=== PATIENT | female | born 1945 | race Caucasian/White ===

== ENCOUNTER 2019-04-03 13:35 | Day surgery (SDC) | payer MEDICARE, BC ==
[2019-04-03] MEDS ORDERED: Acetaminophen 500 MG TAB PO PRN (13:52)
[2019-04-03] MEDS ORDERED: diphenhydrAMINE 25 MG CAP PO PRN (13:53)
[2019-04-04 06:30] LABS: #Basophils 0.1 thou/uL (0.0-0.2); #Eosinphils 0.1 thou/uL (0.0-0.7); #Monocytes 0.6 thou/uL (0.11-0.59); #Neutrophils 3.4 thou/uL (1.40-6.50); %Basophils 1.3 % (0.0-1.0); %Eosinophils 1.5 % (0.0-10.0); %Lymphocytes 19.1 % (21.0-51.0); %Monocytes 11.3 % (0.0-10.0); %Neutrophils 66.7 % (42.0-75.0); Anisocytosis SLIGHT = 6-15 cells (100X) (0-5/hpf); Hemoglobin 8.7 g/dL (12.0-16.0); MDiff Complete? YES; Macrocytosis SLIGHT = 6-15 cells (100X) (0-5/hpf); Mean Corpuscular HGB CONC 32.8 g/dL (32.0-36.0); Mean Corpuscular Hemoglobin 32.3 pg (27.0-31.0); Mean Corpuscular Volume 98.2 fL (78.0-98.0); Mean Platelet Volume 10.1 fL (7.4-10.4); Platelet Count 92 thou/uL (130-400); Platelet Morphology Comment Appears Decreased; Polychromasia SLIGHT = 2-3 cells (100X) (0-2/hpf); RBC Distribution Width 20.5 % (11.5-14.5); Red Blood Cell (RBC) Count 2.69 mill/uL (4.20-5.40); White Blood Cell (WBC) Count 5.1 thou/uL (4.8-10.8)
[2019-04-04] MEDS ORDERED: Furosemide 40 MG/4 ML VIAL SLOW IVP SCH (07:00)
[2019-04-04] MEDS ORDERED: Sodium Chloride 0.9% 10 ML ONE (07:47)
--- NOTE | 2019-04-04 08:58 | PDOC.MOPN ---
Interval History: Feels better, SOB improved with transfusion and lasix - Vital Signs Vital Signs: Vital Signs (12 hours) Temp Pulse Pulse Resp BP BP Pulse Ox 04/04/19 08:00 97.7 F 90 20 124/60 98 04/04/19 05:45 80 L 04/04/19 04:50 97.3 F L 76 16 129/60 98 04/04/19 01:58 97.7 F 73 16 113/55 L 98 04/04/19 01:38 97.9 F 83 16 108/57 L 98 04/04/19 00:25 97.8 F 83 16 110/52 L 97 04/03/19 21:17 98.3 F 89 18 111/55 L 97 - Physical Exam General: Alert, Oriented x3, No acute distress HEENT: Atraumatic, PERRLA, EOMI, Mucous membr. moist/pink Lungs: Other (crackles RLL) Cardiovascular: Regular rate, Normal S1, Normal S2, No murmurs, Gallops, Rubs Abdomen: Normal bowel sounds, Soft, No tenderness, No hepatospenomegaly, No masses Extremities: No clubbing, No cyanosis, No edema, Normal pulses, No tenderness/ swelling Skin: No rashes, No breakdown, No significant lesion Neurological: Normal gait, Normal speech, Strength at 5/5 X4 ext, Normal tone, Sensation intact, Cranial nerves 3-12 NL, Reflexes 2+ Psych/Mental Status: Mental status NL, Mood NL - Labs Result Diagrams: 04/04/19 05:43 Lab results: Laboratory Results - last 24 hr 04/04/19 05:43: WBC 5.1, RBC 2.69 L, Hgb 8.7 L, Hct 26.4 L, MCV 98.2 H, MCH 32.3 H, MCHC 32.8, RDW 20.5 H, Plt Count 92 L, MPV 10.1, Neutrophils % 66.7, Neutrophils % (Manual) Not Reportable, Lymphocytes % 19.1 L, Monocytes % 11.3 H , Eosinophils % 1.5, Basophils % 1.3 H, Neutrophils # 3.4, Lymphocytes # 1.0 L, Monocytes # 0.6 H, Eosinophils # 0.1, Basophils # 0.1, Plt Morphology Comment Appears Decreased L, Polychromasia SLIGHT = 2-3 cells, Anisocytosis SLIGHT = 6- 15 cells, Macrocytosis SLIGHT = 6-15 cells 04/03/19 11:33: Blood Type O POSITIVE, Antibody Screen POSITIVE H, Antibody Identification ANTI-c, Crossmatch See Detail Status: lab reviewed by me A/P - Problem (1) Hypoxia Current Visit: Yes Code(s): R09.02 - HYPOXEMIA Status: Acute (2) H/O liver cancer Current Visit: No Code(s): Z85.05 - PERSONAL HISTORY OF MALIGNANT NEOPLASM OF LIVER Status: Chronic - Plan Plan: lasix 40mg IV given crackles noted at RLL otherwise, she states she feels good plan to recheck room air o2 sat in 30-60 minutes and home if > 88%
[2019-04-04 11:47] VITALS: BP 117/57; TEMP 99.1
== END 2019-04-04 12:30 | disposition home or self-care (01) ==
LOC: ONC/OP 13:35 → 3SE 13:45 → ONC/OP 04-04 12:30
PROVIDERS: ATTEND Internal Medicine Hematology & Oncology
PROC: 30233N1 Transfusion of Nonautologous Red Blood Cells into Peripheral Vein, Percutaneous Approach (ICD-10-PCS; principal; 2019-04-03)
DX: D64.9 Anemia, unspecified (principal); D69.6 Thrombocytopenia, unspecified; Z88.0 Allergy status to penicillin
CPT/HCPCS: 36415; 36430; 85025; 86850; 86870; 86900; 86901; 86922; J1940; P9016; Q0163

== ENCOUNTER 2019-04-12 13:48 | Inpatient (IN) | payer MEDICARE, BC ==
[2019-04-12 14:42] LABS: Hemoglobin 4.6 g/dL (12.0-16.0); Mean Corpuscular HGB CONC 30.4 g/dL (32.0-36.0); Mean Corpuscular Hemoglobin 33.1 pg (27.0-31.0); Mean Platelet Volume 11.6 fL (7.4-10.4); Platelet Count 64 thou/uL (130-400); RBC Distribution Width 22.7 % (11.5-14.5); Red Blood Cell (RBC) Count 1.39 mill/uL (4.20-5.40)
[2019-04-12 15:03] LABS: ALT (SGPT) 48 U/L (8-55); AST (SGOT) 55 U/L (5-34); Albumin 3.1 g/dL (3.4-4.8); Alkaline Phosphatase 79 U/L (40-110); Anion Gap 17 mmol/L (10-20); BUN (Urea Nitrogen) 99 mg/dL (9.8-20.1); Bilirubin, Total 0.8 mg/dL (0.2-1.2); Calc. Creatinine Clearance 0 mL/min (70-130); Calcium 8.5 mg/dL (7.8-10.44); Carbon Dioxide 26 mmol/L (23-31); Chloride 96 mmol/L (98-107); Estimated GFR-MDRD 17; Globulin 1.7 g/dL (2.4-3.5); Glucose 220 mg/dL (83-110); Potassium 4.6 mmol/L (3.5-5.1); Protein, Total 4.8 g/dL (6.0-8.3); Sodium 134 mmol/L (136-145)
[2019-04-12 15:09] LABS: Anisocytosis MODERATE=16-30 cells (100X) (0-5/hpf); Band 5 % (5-11); Hypochromia SLIGHT = 6-15 cells (100X) (0-5/hpf); Lymphocytes 4 % (21-51); MDiff Complete? YES; Macrocytosis SLIGHT = 6-15 cells (100X) (0-5/hpf); Monocytes 8 % (0-10); Neutrophil 83 % (42-75); Nucleated RBC 2 % (0); Platelet Clumps SLIGHT; Platelet Morphology Comment PLT clumps seen-LOW; Poikilocytosis SLIGHT = 6-15 cells (100X) (0-5/hpf); Polychromasia MODERATE = 3-4 cells (100X) (0-2/hpf); Schistocytes SLIGHT = 2-5 cells (100X) (0-1/hpf); Stomatocytes SLIGHT = 2-5 cells (100X) (0-1/hpf); Target Cells SLIGHT = 2-5 cells (100X) (0-1/hpf); Tear Drops SLIGHT = 2-5 cells (100X) (0-1/hpf); White Blood Cell (WBC) Count 8.1 thou/uL (4.8-10.8)
[2019-04-12 15:23] LABS: CKMB 0.7 ng/mL (0-6.6)
[2019-04-12] MEDS ORDERED: Acetaminophen 325 MG TAB PO PRN (16:32)
[2019-04-12] MEDS ORDERED: Senokot S 8.6-50 MG TAB PO PRN (16:32)
[2019-04-12] MEDS ORDERED: Ondansetron PF 4 MG/2 ML Vial IVP PRN (16:32)
[2019-04-12 18:03] LABS: Troponin I 0.045 ng/mL (< 0.028)
[2019-04-12] MEDS ORDERED: Pantoprazole 40 MG VIAL IVP SCH (20:00)
[2019-04-12] MEDS ORDERED: Octreotide Acetate 50 MCG/ML AMP SLOW IVP SCH (20:00)
--- NOTE | 2019-04-12 20:28 | CON ---
DATE OF CONSULTATION: 04/12/2019 CHIEF COMPLAINT: Fatigue. HISTORY OF PRESENT ILLNESS: Ms. Mejía is a 73-year-old woman with hepatocellular carcinoma, developed progressive fatigue over the last few weeks , and weakness. She has been on lenvatinib as chemotherapy for her hepatocellular carcinoma. She has had progressive anemia and this was thought to be due to the lenvatinib, which was ultimately stopped a week and half ago. Her hemoglobin, however, has continued to trend down such that when it was rechecked today, she was found to have a hemoglobin of 4.6, and so she was transferred to the emergency room and given blood transfusion. She has had no abdominal pain with this. She did have some nausea a couple of days ago and threw up some pills, but has had no hematemesis or coffee-grounds emesis. She has a bowel movement daily without constipation or diarrhea, but does take iron and has dark brown stools with that. She has had no prior upper endoscopy or history of GI bleed. She had a colonoscopy in 2012 in [place], which was normal per her recollection. She has been treated for hepatocellular carcinoma in the past with radiation and then chemotherapy. This was thought to be in remission. She has been on Xarelto. She had rheumatic fever as a child with a heart surgery in 1955. She had a mitral valve replacement with porcine valve in 2008. She then had a second mitral valve surgery in 2016, with a bovine valve. She had an ablation for atrial flutter around 6 months ago. She has a pacemaker. Her last dose of Xarelto was the night before last. PAST MEDICAL HISTORY: 1. Cirrhosis of the liver. She does not know the etiology, possibly fatty liver disease. 2. Hepatocellular carcinoma. 3. Atrial flutter and mitral valve disease and history of rheumatic fever as a child. 4. Hyperlipidemia. 5. Gout and hypertension. PAST SURGICAL HISTORY: Mitral valve replacement x2 as stated above, pacemaker placement, complete hysterectomy, colonoscopy in 2012. She has had radiation for scar tissue lower left breast, which was done again back in the 1950s and that was related to her original heart surgery then. FAMILY HISTORY: Negative for GI malignancies. SOCIAL HISTORY: She quit smoking in 1990. She has an occasional drink of alcohol. ALLERGIES: PENICILLIN. MEDICATIONS: Prior to admission: 1. Allopurinol. 2. Aspirin. 3. Diltiazem. 4. Ferrous sulfate three times daily. 5. Magnesium oxide. 6. Metoprolol. 7. Simvastatin. 8. Vitamin B12. 9. Vitamin D3. 10. Xarelto 20 mg daily. She believes the last dose was the night before last. REVIEW OF SYSTEMS: Negative x10 systems reviewed, except as stated in the history of present illness. PHYSICAL EXAMINATION: VITAL SIGNS: Temperature 99.1, pulse 103, blood pressure 117/57. GENERAL: She is pale, in no acute distress. Alert and oriented x3. HEENT: Eyes have no scleral icterus. Oropharynx is clear without lesions. No cervical or supraclavicular lymphadenopathy. LUNGS: Clear to auscultation bilaterally. HEART: Regular rate and rhythm without murmur. ABDOMEN: Soft, nontender, and nondistended. Bowel sounds are present. EXTREMITIES: 1+ pitting lower extremity edema. Cranial nerves are grossly intact. LABORATORY DATA: White blood cell count 8.1, hemoglobin 4.6, platelets 64,000. Creatinine 2.75 with BUN of 99, bilirubin 0.8, AST 55, ALT 48, alkaline phosphatase 79, albumin 3.1. IMPRESSION: 1. Severe anemia. Most likely some degree of acute gastrointestinal blood loss on chronic anticoagulation. She does have dark brown stools on rectal exam and has been on iron supplementation. 2. Valvular heart disease and history of atrial flutter on chronic anticoagulation with Xarelto. Last dose of Xarelto was night before last. She does have acute renal failure and could have some degree of toxicity with Xarelto at this time. Will check coags. 3. Cirrhosis of the liver. 4. Acute renal failure. 5. Hepatocellular carcinoma RECOMMENDATIONS: 1. Transfusion. 2. Proton pump inhibitor IV. 3. Transfusion as necessary. 4. We will plan for upper endoscopy, tentatively for tomorrow. 5. Will start octreotide and cover with abx for SBP prophylaxis. Job ID: [id number] [facility] CENTERFaith
[2019-04-12 20:32] LABS: Hemoglobin 6.1 g/dL (12.0-16.0)
[2019-04-12 20:38] LABS: INR-International Normal Ratio 1.1; PTT 22.4 SEC (22.9-36.1); Prothrombin Time 14.4 SEC (12.0-14.7)
[2019-04-12 20:59] LABS: Troponin I 0.084 ng/mL (< 0.028)
[2019-04-12] MEDS: Octreotide Acetate 1,250 MCG in Sodium Chloride 0.9% 250 ML 250 ML IVPB SCH (21:06)
[2019-04-12] MEDS: Pantoprazole 40 MG VIAL IVP SCH (21:07)
[2019-04-12] MEDS: Atorvastatin Calcium 10 MG TAB PO SCH (21:09)
[2019-04-13 03:58] LABS: INR-International Normal Ratio 1.1; Prothrombin Time 14.1 SEC (12.0-14.7)
[2019-04-13 04:13] LABS: #Lymphocytes 0.5 thou/uL (1.20-3.40); #Monocytes 0.9 thou/uL (0.11-0.59); %Basophils 0.3 % (0.0-1.0); %Eosinophils 0.5 % (0.0-10.0); %Lymphocytes 6.2 % (21.0-51.0); %Neutrophils 80.9 % (42.0-75.0); Hemoglobin 5.9 g/dL (12.0-16.0); Mean Corpuscular HGB CONC 32.3 g/dL (32.0-36.0); Mean Platelet Volume 9.8 fL (7.4-10.4); Platelet Count 137 thou/uL (130-400); Red Blood Cell (RBC) Count 1.74 mill/uL (4.20-5.40); White Blood Cell (WBC) Count 7.4 thou/uL (4.8-10.8)
[2019-04-13 04:15] LABS: Anion Gap 13 mmol/L (10-20); BUN (Urea Nitrogen) 88 mg/dL (9.8-20.1); Calc. Creatinine Clearance 39 mL/min (70-130); Calcium 8.1 mg/dL (7.8-10.44); Carbon Dioxide 25 mmol/L (23-31); Chloride 99 mmol/L (98-107); Estimated GFR-MDRD 21; Glucose 183 mg/dL (83-110); Potassium 4.3 mmol/L (3.5-5.1); Sodium 133 mmol/L (136-145)
[2019-04-13 04:20] LABS: PTT 22.3 SEC (22.9-36.1)
[2019-04-13] MEDS: Pantoprazole 40 MG VIAL IVP SCH ×2 (08:29→20:28)
[2019-04-13] MEDS: Furosemide 20 MG TAB PO SCH (08:29)
--- NOTE | 2019-04-13 08:40 | HP ---
CHIEF COMPLAINT: Shortness of breath and dizziness secondary to severe anemia. HISTORY OF PRESENT ILLNESS: A 73-year-old female with a history of hepatocellular carcinoma on lenvatinib and recent hospitalization for pacemaker placement preceded by atrial flutter and mitral valve replacement x2, pacer placed on March 08, 2019, on discharge with aspirin and Xarelto, presenting with hemoglobin level of 4.6. She [facility] and noted to have abnormal hemoglobin level, sent to the ER. Repeat evaluation showed hemoglobin of 4.7. Her platelets were 64,000. The patient did not have any obvious bleed. She does take iron supplement. No hematuria or hematochezia. Her stool is dark. She presented only with shortness of breath and dizziness without joey bleed. She has hepatocellular carcinoma, diagnosed a year and a half ago and undergone local radiation. In September 2018, she also followed at [facility] in [place]. Currently, she is following with Dr. Ewing at [facility] Clinic. Since January 27, she is on lenvatinib. This patient also has acute kidney injury with a creatinine of 2.75 and abnormal troponin of 0.07 and 0.045, as well as blood glucose level at 220. REVIEW OF SYSTEMS: Pertinence of this in the history of present illness. She denies having any fever, night sweats, or chills. No chest pain, orthopnea, PND , or lower extremity edema. She did not notice any headache, blurriness, or blood in the urine or stool. ALLERGIES: SHE IS ALLERGIC TO PENICILLIN. PAST MEDICAL HISTORY: Hepatocellular cancer diagnosed a year and a half ago. I see significant macrocytic anemia. PAST SURGICAL HISTORY: Hysterectomy, mitral valve replacement x2, and pacemaker placed recently. SOCIAL HISTORY: Ex-smoker, quit 10 years ago. No alcohol or illicit drug use. PHYSICAL EXAMINATION: VITAL SIGNS: Pending. GENERAL: Currently, she is very icteric, pale, but alert and oriented x4. NECK: Supple. No JVD noted. CARDIOVASCULAR: Regular rate and rhythm without murmurs, rubs, or gallops. LUNGS: Clear to auscultation bilaterally without wheezing, rales, or rhonchi. ABDOMEN: Soft, nontender, and nondistended. Good bowel sounds. EXTREMITIES: Without any pitting edema and rash. Dorsalis pedis pulses palpable. LABORATORY STUDIES: Troponin 0.07 and 0.05. Sodium 134, creatinine 2.75 with a baseline creatinine of 1.01 on March 09. Her hemoglobin is 4.6, platelet is 64,000, WBC 8.1. IMPRESSION AND PLAN: This is a 73-year-old female with history of hepatocellular cancer on lenvatinib and recent atrial flutter and mitral valve replacement on Xarelto and pacemaker placement on March 08, presenting with severe symptomatic anemia. 1. Severe symptomatic macrocytic anemia. 2. Acute kidney injury. 3. Abnormal troponin, probably reflective of metabolic mismatch secondary to significant severe anemia. 4. Hyperglycemia. 5. The patient is admitted in the medical floor. She has been transfused. ER physician notified the GI on-call, Dr. Jose A Mancera. Octreotide , as well as PPI IV b.i.d. Holding aspirin and Xarelto. Also giving Cipro as empiric antibiotic currently. 6.Acute kidney injury probably reflective of hypoperfusion. She is getting blood transfusion. We will check her H and H after completion. I believe her symptomatic severe anemia is multifactorial, could be chemo induced as well as being on anticoagulation as well as antiplatelet [ASA and xarelto] and lenvatinib. This may have to be addressed again. I will consult Dr. Valderrama regarding her ongoing lenvatinib. 7. The patient is asymptomatic in terms of chest pain. We will follow the clinical course. I will also get the EKG for baseline monitoring. 8. No deep venous thrombosis prophylaxis other than mechanical SCDs. Regular diet. Rest of the management based on the clinical course. Job ID: [id number] MTDD
--- NOTE | 2019-04-13 09:24 | RAD ---
Portable frontal chest radiograph: 04/13/2019 COMPARISON: 03/09/2019 HISTORY: Hypoxia FINDINGS: Midline sternotomy wires are present, stable when compared to the prior exam. Stable stent material overlies the cardiac silhouette. Stable multilead transvenous pacing device present. No pneumothorax. No focal consolidation or alveolar edema. Pulmonary vascular congestion is present. Blunting of bilateral costophrenic angles noted, suggesting small volume pleural fluid and/or pleural thickening. There is a asymmetric focal area of increased density in the right perihilar/right infrahilar region medially. IMPRESSION: Persistent focal area of opacity noted in the medial right lung base. Recommend CT examin ation of the chest given nonspecific persistent right basilar opacity.
[2019-04-13 09:47] LABS: Hemoglobin 7.5 g/dL (12.0-16.0)
[2019-04-13] MEDS ORDERED: Ondansetron HCl/PF 4 MG/2 ML Vial IVP PRN (10:04)
--- NOTE | 2019-04-13 10:34 | CON ---
DATE OF CONSULTATION: HISTORY OF PRESENT ILLNESS: Joan Mejía is a 73-year-old female, lifelong nonsmoker, who went to see the oncologist yesterday and was found to have a low hemoglobin. Apparently, it is 4.7. She has been having some black stools. She is scheduled for an upper GI endoscopy this morning. She was started on Protonix last night. She has known history of liver cancer diagnosed in 2015. She is seeing local oncologist and receiving treatment. She denies any chest pain, chills, or sweats. PAST MEDICAL HISTORY: Otherwise, pertinent for cardiac issues, history of prosthetic mitral valve surgery x2, high cholesterol, hypertension. PAST SURGICAL HISTORY: Otherwise, included 2 mitral valve surgeries, previous endoscopy, previous hysterectomy, 1st mitral valve was a pig, 2nd was a cow in 2017. ALLERGIES: PENICILLIN. HOME MEDICINES: 1. Allopurinol 100. 2. Ferrous sulfate. 3. Cardizem 180. 4. Aspirin 81. 5. Xarelto 20. 6. Metoprolol 100. 7. Zocor 20. FAMILY HISTORY: Unremarkable. REVIEW OF SYSTEMS: Ten-point negative. PHYSICAL EXAMINATION: VITAL SIGNS: Sats are 100% on 2 L, blood pressure is 130/80, pulse 100, respiratory rate 18. GENERAL: She is awake, alert, and responsive. CHEST: Minimal rhonchi and crackles. CARDIAC: Normal S1 and S2. No gallops. ABDOMEN: Soft. LABORATORY DATA: White count 7000, H and H of 5.9 and 18, platelet count 137. Creatinine is 2, BUN is 88. Troponin normal. IMPRESSION: 1. Anemia, rule out upper GI bleed. 2. Renal failure, probably some of it is prerenal. 3. Nonsmoker. 4. Liver cancer. PLAN: Started on octreotide, Protonix by GI, antibiotics. Pulmonary will follow while in the ICU. Baseline chest x-ray. Consultation note, 70 minutes, 50% direct patient care. Job ID: [id number]
--- NOTE | 2019-04-13 12:50 | OP ---
DATE OF PROCEDURE: 04/13/2019 PROCEDURE PERFORMED: Esophagogastroduodenoscopy, diagnostic. INDICATIONS: 1. Melena. 2. Anemia of gastrointestinal blood loss. 3. The patient has a history of hepatocellular carcinoma, currently on chemotherapy. 4. The patient also has history of mitral valve surgery, on chronic anticoagulation with Xarelto. MEDICATIONS: See Anesthesia record. FINDINGS: After discussion of the risks, benefits, and alternatives of the procedure, informed consent was obtained and witnessed. Pre-endoscopic cardiopulmonary examination was satisfactory. Time-out was performed before sedation was achieved. Sedation was achieved with Anesthesia assistance in the endoscopy unit. A Pentax adult upper endoscope was placed into the oropharynx and passed through the cricopharyngeus under direct visualization. The esophageal mucosa appeared normal in the proximal, mid, and even distal esophagus. There was no evidence of any esophageal varices. At the GE junction right at the Z-line, there was an area of edema, erythema, and friability. There was no discrete ulcer or visible vessel. However, the area was actively oozing. I spent extensive amount of time watching this area, looking for any specific target to treat endoscopically, but this appears to represent more of a diffuse oozing from focal esophagitis. She does have a small hiatal hernia. I do not see any evidence of Carter erosion. The remainder of the stomach appeared normal. On retroflexed view, there was no evidence of any gastric varices. The endoscope was passed through the pylorus and into the first and second portions of the duodenum, which also appeared normal. As this area of oozing really did not appear to represent a varix, and as there was no specific visible vessel to treat as well as her having recently taken Xarelto, no endoscopic therapy was applied at this time. The very slow oozing of blood continued. The upper endoscope was completely withdrawn and the patient allowed to recover. The patient tolerated the procedure well. There were no immediate postprocedure complications. IMPRESSION: 1. Focal area of esophagitis at the Z-line, with generalized slow oozing of blood, no specific target to endoscopically treat. 2. No evidence of any esophageal or gastric varices. 3. Small hiatal hernia. 4. Otherwise, normal esophagogastroduodenoscopy. RECOMMENDATIONS: 1. The patient can be on clear liquids today. 2. Continue the IV PPI drip. 3. Continue to monitor H and H, transfuse further as needed. 4. Continue antibiotics. 5. Hold the Xarelto. From a GI standpoint, it might be best if anticoagulation was held altogether. 6. GI will continue to follow along. If the patient has continued significant rapid downtrend in hemoglobin, we could potentially consider repeating upper endoscopy in a couple of days for re-evaluation. Job ID: [id number]
--- NOTE | 2019-04-13 14:13 | CON ---
DATE OF CONSULTATION: REASON FOR CONSULTATION: Hepatocellular carcinoma. HISTORY OF PRESENT ILLNESS: Ms. Mejía is a pleasant 73-year-old female with metastatic hepatocellular carcinoma. She has undergone chemoembolization in 2017. She had external beam XRT at [facility] in [place] in 10/2018, and was felt to be in remission. She has been taking lenvatinib oral chemotherapy. She was seen in our clinic on 04/04, she complained of extreme weakness and shortness of breath, but denied any bleeding. Her hemoglobin was 6.4. Her oxygen saturation was 88% on room air. She was transfused 2 units of packed RBCs with improvement in her hemoglobin to 8.7. She presented to the clinic yesterday, again complaining of weakness and shortness of breath. CBC showed a hemoglobin of 4.7. She again denied any bleeding. She does have dark stool, but she takes iron. She is on Xarelto for atrial flutter. She was sent to the emergency room for evaluation and admitted for severe symptomatic anemia. Dr. Mancera was consulted and has seen the patient. PAST MEDICAL HISTORY: 1. Metastatic hepatocellular carcinoma. 2. Congestive heart failure. 3. History of GI bleed. 4. Rheumatic fever. 5. Diabetes. 6. Hypertension. 7. High cholesterol. 8. Kidney disease. PAST SURGICAL HISTORY: 1. Mitral valve replacement. 2. Hysterectomy. 3. Coronary artery bypass surgery. ALLERGIES: PENICILLIN. HOME MEDICATIONS: 1. Allopurinol. 2. Aspirin. 3. D3. 4. B12. 5. Lenvatinib. 6. Magnesium oxide. 7. Metoprolol. 8. Xarelto. 9. Zocor. 10. Cardizem. 11. Iron. FAMILY HISTORY: Mother had leukemia. SOCIAL HISTORY: , has one daughter whom she lives with. No alcohol, tobacco, or illicit drug use. REVIEW OF SYSTEMS: A 10-point review of systems is negative except for noted in HPI. PHYSICAL EXAMINATION: VITAL SIGNS: Temperature is 98.2, pulse is 105, respiratory rate 15, BP is 131/74, and she is 98% on 2 L. GENERAL: Well-developed, well-nourished female, in no acute distress. HEENT: Normocephalic and atraumatic. Pupils are equal and reactive to light. NECK: Supple. CV: Regular rate and rhythm. She is tachycardic. LUNGS: Clear anterior. ABDOMEN: Soft and nontender. Bowel sounds are positive. EXTREMITIES: No clubbing or cyanosis. SKIN: No rash. HEMATOLOGIC: No petechiae or purpura. NEUROLOGIC: Nonfocal. PERTINENT LABORATORY DATA AND X-RAYS: Current WBCs are 7.4, hemoglobin 7.5, hematocrit 23.7, and platelet count is 137,000. She got 81% neutrophils and 6% lymphocytes. PT is 14.1, INR is 1.1, and PTT is 22.3. Sodium is 133, potassium 4.3, chloride 99, CO2 is 25, BUN is 88, creatinine 2.27, and calcium 8.1. Bilirubin is 0.8, AST is 55, ALT is 48, and alkaline phosphatase is 79. Troponin 0.084. Serum total protein 4.8, albumin 3.1, and globulin 1.7. Chest x-ray shows no acute process. ASSESSMENT: 1. Severe symptomatic anemia. 2. Hepatocellular carcinoma. 3. Chronic shortness of breath. DISCUSSION: Dr. Mancera seen the patient. She has been transfused 2 units of packed RBCs today to evaluate for any bleeding. She is on octreotide drip. Further recommendations will be based on EGD findings. She has not been on her chemotherapy medication for over 10 days. I do not feel this is the reason for her acute drop. We will follow along with the hospital course and daily CBC. Thank you for the consult. Job ID: [id number]
[2019-04-13] MEDS ORDERED: PROPOFOL 200 MG/20 ML VIAL ONE (15:37)
--- NOTE | 2019-04-13 15:40 | PDOC.HOSPP ---
- Subjective Encounter Date: 04/13/19 Encounter Time: 12:40 Subjective: seen after EGD - hgb appropri increase after transfusion. - Objective Vital Signs & Weight: Vital Signs (12 hours) Temp Pulse Resp BP Pulse Ox 04/13/19 11:59 98.5 F 04/13/19 07:28 100 04/13/19 07:00 98.2 F 04/13/19 05:15 98.2 F 105 H 17 126/74 100 04/13/19 04:58 98.6 F 04/13/19 04:00 98.1 F Weight Weight 250 lb 0.067 oz Most Recent Monitor Data Heart Rate from ECG 106 NIBP 108/68 NIBP BP-Mean 81 Respiration from ECG 17 SpO2 93 I&O: 04/12/19 04/13/19 04/14/19 06:59 06:59 06:59 Intake Total 597 240 Output Total 600 350 Balance -3 -110 Result Diagrams: 04/13/19 09:32 04/13/19 03:17 Hospitalist ROS - Medication Medications: Active Medications Generic Name Dose Route Start Last Admin Trade Name Freq PRN Reason Stop Dose Admin Atorvastatin Calcium 10 mg 04/12/19 21:00 04/12/19 21:09 Lipitor PO 10 mg HS CLAY Administration Diltiazem HCl 180 mg 04/13/19 09:00 04/13/19 08:29 Cardizem Cd PO 180 mg DAILY CLAY Administration Furosemide 20 mg 04/13/19 09:00 04/13/19 08:29 Lasix PO 20 mg DAILY CLAY Administration Ciprofloxacin/Dextrose 400 mg/ 200 mls @ 200 mls/hr 04/12/19 20:00 04/13/19 08:27 Device IVPB 200 mls [id number] CLAY Administration Octreotide Acetate 1,250 mcg/ 251.25 mls @ 10.05 mls/hr 04/12/19 20:00 21:06 Sodium Chloride IVPB 251.25 mls INF CLAY Administration 50 MCG/HR Metoprolol Succinate 100 mg 04/13/19 09:00 04/13/19 08:29 Toprol Xl PO 100 mg DAILY CLAY Administration Pantoprazole Sodium 40 mg 04/12/19 21:00 04/13/19 08:29 Protonix IVP 40 mg Q12HR CLAY Administration - Exam General Appearance: NAD, awake alert Eye: PERRL ENT: normocephalic atraumatic Neck: supple Heart: RRR Respiratory: CTAB Gastrointestinal: normal bowel sounds Neurological: cranial nerve grossly intact, no focal deficits Hosp A/P - Plan Symptocmatic, macrocytic anemia -s/p transfusion -s/p EGD Esophagitis -slow oozing at Z line --H & H tonight - PPI IV Hyperglycemia -improving GOLDIE - slow impro't in the cr level. started back on diet. keep her in the UNIT until am, if hgb remained stable, then will trans. to tele bed. No xarelto/NSAids/asa.
[2019-04-13 20:01] LABS: Hemoglobin 7.4 g/dL (12.0-16.0)
[2019-04-13] MEDS: Atorvastatin Calcium 10 MG TAB PO SCH (20:28)
[2019-04-13] MEDS: Octreotide Acetate 1,250 MCG in Sodium Chloride 0.9% 250 ML 250 ML IVPB SCH (22:48)
[2019-04-14 05:50] LABS: #Eosinphils 0.1 thou/uL (0.0-0.7); #Lymphocytes 0.5 thou/uL (1.20-3.40); #Monocytes 0.9 thou/uL (0.11-0.59); %Basophils 0.1 % (0.0-1.0); %Eosinophils 0.9 % (0.0-10.0); %Lymphocytes 4.8 % (21.0-51.0); %Monocytes 9.5 % (0.0-10.0); %Neutrophils 84.7 % (42.0-75.0); Anisocytosis MODERATE=16-30 cells (100X) (0-5/hpf); Hemoglobin 6.8 g/dL (12.0-16.0); MDiff Complete? YES; Mean Corpuscular HGB CONC 32.4 g/dL (32.0-36.0); Mean Corpuscular Hemoglobin 32.5 pg (27.0-31.0); Mean Platelet Volume 9.6 fL (7.4-10.4); Platelet Count 111 thou/uL (130-400); Platelet Morphology Comment Appears Decreased; RBC Distribution Width 20.8 % (11.5-14.5); Red Blood Cell (RBC) Count 2.09 mill/uL (4.20-5.40); White Blood Cell (WBC) Count 9.4 thou/uL (4.8-10.8)
--- NOTE | 2019-04-14 09:55 | PRG ---
DATE OF SERVICE: 04/14/2019 SUBJECTIVE: Joan Mejía underwent upper GI endoscopy. Area of bleeding was cauterized. She is better, less short of breath. OBJECTIVE: VITAL SIGNS: Saturations are 98% on room air, blood pressure 130/65, pulse 60, and respiratory rate 18. CHEST: No wheezing or crackles. CARDIAC: Normal S1 and S2. No gallops. ABDOMEN: No masses. ASSESSMENT: Liver cancer, anemia, gastrointestinal bleed, and morbid obesity. PLAN: The patient appears to be stable at this stage. She had an x-ray taken yesterday, which shows a lot of chronic scarring in the right lung, probably from previous thoracentesis as per the patient. Pulmonary will follow. Continue antibiotics, supportive care, PT. Job ID: [id number]
[2019-04-14] MEDS: Pantoprazole 40 MG VIAL IVP SCH ×2 (10:00→20:24)
[2019-04-14] MEDS: Furosemide 20 MG TAB PO SCH (10:00)
--- NOTE | 2019-04-14 12:09 | PDOC.HOSPP ---
- Subjective Encounter Date: 04/14/19 Encounter Time: 11:45 Subjective: doing well, hgb dropped, ordered another 2 units of prbc. - Objective Vital Signs & Weight: Vital Signs (12 hours) Temp Pulse Ox 04/14/19 08:00 94 L 04/14/19 04:00 98.8 F Weight Admit Weight 250 lb Weight 249 lb 12.54 oz Most Recent Monitor Data Heart Rate from ECG 109 NIBP 140/73 NIBP BP-Mean 95 Respiration from ECG 24 SpO2 93 I&O: 04/13/19 04/14/19 04/15/19 06:59 06:59 06:59 Intake Total 597 1776 350 Output Total 600 850 Balance -3 926 350 Result Diagrams: 04/14/19 03:17 04/13/19 03:17 Hospitalist ROS - Medication Medications: Active Medications Generic Name Dose Route Start Last Admin Trade Name Freq PRN Reason Stop Dose Admin Atorvastatin Calcium 10 mg 04/12/19 21:00 04/13/19 20:28 Lipitor PO 10 mg HS CLAY Administration Diltiazem HCl 180 mg 04/13/19 09:00 04/14/19 09:59 Cardizem Cd PO 180 mg DAILY CLAY Administration Furosemide 20 mg 04/13/19 09:00 04/14/19 10:00 Lasix PO 20 mg DAILY CLAY Administration Ciprofloxacin/Dextrose 400 mg/ 200 mls @ 200 mls/hr 04/12/19 20:00 04/14/19 09:59 Device IVPB 200 mls 0800,2000 CLAY Administration Octreotide Acetate 1,250 mcg/ 251.25 mls @ 10.05 mls/hr 04/12/19 20:00 22:48 Sodium Chloride IVPB 251.25 mls INF CLAY Administration 50 MCG/HR Metoprolol Succinate 100 mg 04/13/19 09:00 04/14/19 09:59 Toprol Xl PO 100 mg DAILY CLAY Administration Pantoprazole Sodium 40 mg 04/12/19 21:00 04/14/19 10:00 Protonix IVP 40 mg Q12HR CLAY Administration - Exam General Appearance: NAD, awake alert Eye: PERRL ENT: normocephalic atraumatic Neck: supple Heart: RRR Respiratory: no tachypnea Gastrointestinal: soft, normal bowel sounds, no hepatomegaly Hosp A/P - Plan Symptocmatic, macrocytic anemia -s/p transfusion -s/p EGD Esophagitis -slow oozing at Z line --H & H tonight-----------> dropped further -- 2 units ordered for th - PPI IV Hyperglycemia -improving GOLDIE - slow improvement in the Cr level. started back on diet. keep her in the UNIT until GI cleared her as may be another EGD? as hgb still dropping. , then will transfer to tele bed. No xarelto/NSAids/asa.
--- NOTE | 2019-04-14 15:37 | PRG ---
DATE OF SERVICE: 04/14/2019 SUBJECTIVE: Ms. Mejía has little more strength after transfusion. She has no abdominal pain or other acute complaints. OBJECTIVE: GENERAL: She is pale. Awake, alert, and oriented x3. VITAL SIGNS: Temperature 98.8, pulse 104, and blood pressure 129/74. GENERAL: She is in no acute distress. LUNGS: Clear to auscultation bilaterally. HEART: Regular rate and rhythm without murmur. ABDOMEN: Soft, nontender, and nondistended. Bowel sounds are present. EXTREMITIES: No lower extremity edema. IMPRESSION: 1. Gastrointestinal bleed on anticoagulation. Endoscopy yesterday showed active oozing around the GE junction, which could be due to some mild erosive esophagitis in the setting of anticoagulation. She had no focal ulceration or vessel to cauterize. She might be toxic on her Xarelto given the acute renal failure and cirrhosis. We will continue to monitor how her hemoglobin does after transfusion and thus the Xarelto was metabolized. 2. Anemia of acute blood loss. Also, she could be having anemia complicated further with her recent chemotherapy and acute renal failure. 3. Acute renal failure, likely prerenal from the severe anemia. 4. Cirrhosis of the liver. 5. Hepatocellular carcinoma. 6. History of mitral valve replacement. She will require anticoagulation longer term for that. For now, we will continue to hold the anticoagulation and monitor for overt bleeding and trend of her hemoglobin. RECOMMENDATIONS: 1. She is receiving transfusion today. 2. Proton pump inhibitor twice daily. 3. Discontinue octreotide. 4. Start a low fiber diet. 5. Depending on the trend of her hemoglobin and whether or not she has further overt bleeding, then repeat upper endoscopy could be considered to see if she has ongoing bleeding, however, really it sounds like she just had oozing in the setting over anticoagulation. Xarelto, however, could not really be monitored as far as the degree of anticoagulation in the setting of the acute renal failure. 6. Discontinue octreotide. 7. Dr. Tai will cover the weekend. Job ID: [id number]
[2019-04-14] MEDS ORDERED: Furosemide 20 MG/2 ML VIAL SLOW IVP SCH ×2 (15:45→19:00)
[2019-04-14] MEDS: Atorvastatin Calcium 10 MG TAB PO SCH (20:23)
[2019-04-15 05:54] LABS: #Eosinphils 0.2 thou/uL (0.0-0.7); #Lymphocytes 0.3 thou/uL (1.20-3.40); #Monocytes 0.7 thou/uL (0.11-0.59); #Neutrophils 4.5 thou/uL (1.40-6.50); %Basophils 0.3 % (0.0-1.0); %Eosinophils 2.9 % (0.0-10.0); %Lymphocytes 5.7 % (21.0-51.0); %Monocytes 11.9 % (0.0-10.0); %Neutrophils 79.2 % (42.0-75.0); Hemoglobin 7.5 g/dL (12.0-16.0); Mean Corpuscular HGB CONC 32.9 g/dL (32.0-36.0); Mean Corpuscular Hemoglobin 32.7 pg (27.0-31.0); Mean Corpuscular Volume 99.6 fL (78.0-98.0); Platelet Count 82 thou/uL (130-400); RBC Distribution Width 19.1 % (11.5-14.5); White Blood Cell (WBC) Count 5.7 thou/uL (4.8-10.8)
[2019-04-15 06:49] LABS: Anion Gap 11 mmol/L (10-20); BUN (Urea Nitrogen) 62 mg/dL (9.8-20.1); Calc. Creatinine Clearance 53 mL/min (70-130); Calcium 7.8 mg/dL (7.8-10.44); Carbon Dioxide 32 mmol/L (23-31); Chloride 98 mmol/L (98-107); Estimated GFR-MDRD 29; Glucose 171 mg/dL (83-110); Potassium 4.3 mmol/L (3.5-5.1); Sodium 137 mmol/L (136-145)
--- NOTE | 2019-04-15 10:19 | PRG ---
DATE OF SERVICE: 04/15/2019 SUBJECTIVE: Ms. Mejía is feeling pretty well. She got some sleep last night. She has a little more energy. The large ecchymosis on her right arm is not bothering her too much. She is tolerating her diet. She has not had any bowel movement over the past day. OBJECTIVE: VITAL SIGNS: Temperature 97.6, blood pressure 91/42, pulse 72, and 94% oxygen saturation on 2 L nasal cannula. GENERAL: Pale, sitting up in bed comfortably in no distress. HEART: Regular rate and rhythm. LUNGS: Clear to auscultation bilaterally. ABDOMEN: Soft, nontender to palpation. EXTREMITIES: No peripheral edema. She has a very large hematoma on the right arm. LABORATORY STUDIES: Hemoglobin 7.5, WBC is 5.7, platelets 82. Sodium 137, potassium 4.3, BUN down to 62, creatinine down to 1.7, glucose 171. ASSESSMENT AND PLAN: 1. Gastrointestinal bleed on anticoagulation. 2. Distal esophagitis. The patient had mild erosive esophagitis at the GE junction, but in the setting of anticoagulation, this was oozing on EGD two days ago. There was no focal ulceration or vessel to cauterize. Agree with Dr. Mancera that Xarelto toxicity is likely to blame here, particularly given her acute renal failure on presentation and underlying cirrhosis. 3. Anemia of acute blood loss. Things seem to be stabilizing slowly. BUN and creatinine, both improving. No overt bleeding over the past 24 hours. 4. Cirrhosis. 5. Hepatocellular carcinoma. 6. History of mitral valve replacement. For now, continuing to hold anticoagulation. Job ID: [id number]
[2019-04-15] MEDS: Furosemide 20 MG TAB PO SCH (10:32)
[2019-04-15] MEDS: Pantoprazole 40 MG VIAL IVP SCH ×2 (10:36→20:31)
[2019-04-15] MEDS: Sodium Chloride 0.9% (PF) 10 ML VIAL FS PRN (10:36)
--- NOTE | 2019-04-15 13:30 | PDOC.HOSPP ---
- Subjective Subjective: Follow up on gastrointestinal bleeding, hepatocellular carcinoma, mitral valve replacement who is chronically on anticoagulation with Xarelto. Status post EGD with esophagitis and oozing at the z line. Patient has received four units of packed red blood cells. Her acute kidney injury has improved with IV fluid resuscitation. Patient seen and examined. She denies overt black or blood in stool. No nausea or vomiting. Tolerating diet. Time was given for questions, all answered in detail. - Objective Vital Signs & Weight: Vital Signs (12 hours) Temp Pulse Ox 04/15/19 07:35 97.6 F 04/15/19 06:58 95 04/15/19 03:05 98.2 F Weight Admit Weight 250 lb 0.067 oz Weight 252 lb 10.396 oz Most Recent Monitor Data Heart Rate from ECG 97 NIBP 115/75 NIBP BP-Mean 88 Respiration from ECG 18 SpO2 96 I&O: 04/14/19 04/15/19 04/16/19 06:59 06:59 06:59 Intake Total 1776 2480 Output Total 850 1450 Balance 926 1030 Result Diagrams: 04/15/19 05:25 04/15/19 05:25 Radiology Reviewed by me: Yes Hospitalist ROS - Review of Systems All other systems reviewed; all pertinent +/- noted in HPI/Subj - Medication Medications: Active Medications Generic Name Dose Route Start Last Admin Trade Name Freq PRN Reason Stop Dose Admin Acetaminophen 650 mg 04/12/19 16:32 04/14/19 15:00 Tylenol PO 650 mg Q4H PRN Administration Headache/Fever/Mild Pain (1-3) Atorvastatin Calcium 10 mg 04/12/19 21:00 04/14/19 20:23 Lipitor PO 10 mg HS CLAY Administration Diltiazem HCl 180 mg 04/13/19 09:00 04/15/19 10:32 Cardizem Cd PO 180 mg DAILY CLAY Administration Furosemide 20 mg 04/13/19 09:00 04/15/19 10:32 Lasix PO 20 mg DAILY CLAY Administration Metoprolol Succinate 100 mg 04/13/19 09:00 04/15/19 10:36 Toprol Xl PO 100 mg DAILY CLAY Administration Pantoprazole Sodium 40 mg 04/12/19 21:00 04/15/19 10:36 Protonix IVP 40 mg Q12HR CLAY Administration Sodium Chloride 10 ml 04/12/19 19:49 04/15/19 10:36 Normal Saline Pf FS 10 ml PRN PRN Administration RECONSTITUTION - Exam General Appearance: NAD, awake alert Eye: PERRL, anicteric sclera ENT: normocephalic atraumatic, moist mucosa Neck: supple, symmetric, no lymphadenopathy Heart: no murmur, no gallops, no rubs Respiratory: CTAB, no wheezes, no rales, no ronchi, normal chest expansion Gastrointestinal: soft, non-tender, non-distended, no guarding, no rigidity Extremities: no clubbing, no edema Skin: no lesions, no rashes Neurological: cranial nerve grossly intact, no focal deficits Musculoskeletal: generalized weakness Psychiatric: normal affect, A&O x 3 Hosp A/P (1) GI bleeding Code(s): K92.2 - GASTROINTESTINAL HEMORRHAGE, UNSPECIFIED Status: Acute (2) Esophagitis Code(s): K20.9 - ESOPHAGITIS, UNSPECIFIED Status: Acute (3) Hypoxia Code(s): R09.02 - HYPOXEMIA Status: Acute (4) Cholelithiases Code(s): K80.20 - CALCULUS OF GALLBLADDER W/O CHOLECYSTITIS W/O OBSTRUCTION Status: Chronic (5) Chronic hemorrhagic anemia Code(s): D50.0 - IRON DEFICIENCY ANEMIA SECONDARY TO BLOOD LOSS (CHRONIC) Status: Chronic (6) Chronic stage c diastolic heart failure Code(s): I50.32 - CHRONIC DIASTOLIC (CONGESTIVE) HEART FAILURE Status: Chronic (7) Diabetes type 2, controlled Code(s): E11.9 - TYPE 2 DIABETES MELLITUS WITHOUT COMPLICATIONS Status: Chronic (8) Dyslipidemia Code(s): E78.5 - HYPERLIPIDEMIA, UNSPECIFIED Status: Chronic (9) Gout Code(s): M10.9 - GOUT, UNSPECIFIED Status: Chronic (10) H/O liver cancer Code(s): Z85.05 - PERSONAL HISTORY OF MALIGNANT NEOPLASM OF LIVER Status: Chronic (11) H/O mitral valve replacement Code(s): Z95.2 - PRESENCE OF PROSTHETIC HEART VALVE Status: Chronic (12) Hypertension Code(s): I10 - ESSENTIAL (PRIMARY) HYPERTENSION Status: Chronic (13) Morbid obesity with BMI of 40.0-44.9, adult Code(s): E66.01 - MORBID (SEVERE) OBESITY DUE TO EXCESS CALORIES; Z68.41 - BODY MASS INDEX (BMI) 40.0-44.9, ADULT Status: Chronic - Plan Plan: intermediate medical care floor gastroenterology consultation, recommendations appreciated status post EGD, please see full operative report for details PPI therapy octreotide has been stopped status post for units of packed red blood cells transfusion, hemoglobin stable this a.m. transfuse 2 units of packed red blood cells for hemoglobin less than 7.0 trend H and H acute kidney injury has resolved with fluid resuscitation hold anticoagulation until okay with gastroenterology mitral valve replacement who is chronically on Xarelto continue other home medications as able blood pressure control blood sugar control DVT prophylaxis
--- NOTE | 2019-04-15 18:02 | PRG ---
DATE OF SERVICE: 04/15/2019 SUBJECTIVE: Ms. Mejía is a 73-year-old female admitted with GI blood loss. She is clinically doing well. She said she feels 100% better. She had a bleeding area that was cauterized. Clinically, she is no longer bleeding. OBJECTIVE: VITAL SIGNS: She is afebrile. Heart rate in the 90s, respiratory rates in the teens, blood pressure 118/80. LUNGS: Clear. HEART: Regular rhythm. ABDOMEN: Soft. LABORATORY DATA: White count 5.7, hemoglobin 7.5, platelets 82,000. Electrolytes are unremarkable. BUN 62, creatinine 1.7 down from 2.75 three days ago. IMPRESSION: 1. Gastrointestinal blood loss, clinically stable. 2. Acute on chronic kidney disease. She appears to be doing well. She is a candidate to transfer out of the intermediate care unit in my opinion. Job ID: [id number]
[2019-04-15] MEDS: Atorvastatin Calcium 10 MG TAB PO SCH (20:31)
[2019-04-16 06:20] LABS: #Eosinphils 0.2 thou/uL (0.0-0.7); #Lymphocytes 0.5 thou/uL (1.20-3.40); #Monocytes 0.6 thou/uL (0.11-0.59); #Neutrophils 3.5 thou/uL (1.40-6.50); %Basophils 0.4 % (0.0-1.0); %Eosinophils 3.5 % (0.0-10.0); %Lymphocytes 9.6 % (21.0-51.0); %Monocytes 11.7 % (0.0-10.0); %Neutrophils 74.9 % (42.0-75.0); Hemoglobin 7.7 g/dL (12.0-16.0); Mean Corpuscular HGB CONC 32.9 g/dL (32.0-36.0); Mean Corpuscular Hemoglobin 32.5 pg (27.0-31.0); Mean Corpuscular Volume 98.7 fL (78.0-98.0); Mean Platelet Volume 10.3 fL (7.4-10.4); Platelet Count 87 thou/uL (130-400); RBC Distribution Width 18.1 % (11.5-14.5); Red Blood Cell (RBC) Count 2.37 mill/uL (4.20-5.40); White Blood Cell (WBC) Count 4.7 thou/uL (4.8-10.8)
[2019-04-16 06:23] LABS: Anion Gap 12 mmol/L (10-20); BUN (Urea Nitrogen) 61 mg/dL (9.8-20.1); Calc. Creatinine Clearance 56 mL/min (70-130); Calcium 7.4 mg/dL (7.8-10.44); Carbon Dioxide 31 mmol/L (23-31); Chloride 98 mmol/L (98-107); Estimated GFR-MDRD 32; Glucose 165 mg/dL (83-110); Potassium 4.6 mmol/L (3.5-5.1); Sodium 136 mmol/L (136-145)
[2019-04-16] MEDS: Pantoprazole 40 MG VIAL IVP SCH ×2 (09:45→21:06)
[2019-04-16] MEDS: Furosemide 20 MG TAB PO SCH (09:45)
[2019-04-16] MEDS: Sodium Chloride 0.9% (PF) 10 ML VIAL FS PRN (09:45)
--- NOTE | 2019-04-16 11:01 | PRG ---
DATE OF SERVICE: 04/16/2019 SUBJECTIVE: Ms. Mejía is feeling pretty well. She has not had any bowel movements since yesterday. She has remained hemodynamically stable. Hemoglobin is stable from 7.5 to 7.7. OBJECTIVE: VITAL SIGNS: Temperature 97.5, pulse 97, blood pressure 110/56, and 95% oxygen saturation on 1 L nasal cannula. GENERAL: Pale, sitting up in bed comfortably. No acute distress. HEART: Regular rate and rhythm. LUNGS: Clear to auscultation bilaterally. ABDOMEN: Soft, nontender to palpation. EXTREMITIES: No peripheral edema. LABORATORY STUDIES: Hemoglobin is 7.7, WBC 4.7, platelets 87. Sodium 136, potassium 4.6, BUN down to 61, creatinine down to 1.58, glucose 165. ASSESSMENT AND PLAN: 1. GI bleed, on anticoagulation. 2. Distal esophagitis. The patient had mild erosive esophagitis at the GE junction, but in the setting of anticoagulation, this was actively oozing on EGD 3 days ago. There was no focal ulceration or vessel to cauterize. 3. Anemia of acute gastrointestinal blood loss. Hemoglobin has been stable now over the past 2 days. BUN and creatinine both improving. No overt bleeding over the past 48 hours. I am inclined to recommend holding anticoagulation at least 1 more day. The patient will need to continue on PPI even after discharge. 4. Cirrhosis. 5. Hepatocellular carcinoma. Dr. Macnera to resume care tomorrow. Job ID: [id number]
--- NOTE | 2019-04-16 11:38 | PDOC.HOSPP ---
- Subjective Encounter Date: 04/16/19 Encounter Time: 11:30 Subjective: f/u for acute GI bleed from distal esophagitis and anticoagulation with Xarelto. Hemoglobin stabilizein the 7.7 range s/p 4u PRBC's total. - Objective Vital Signs & Weight: Vital Signs (12 hours) Temp Pulse Ox 04/16/19 11:07 98.0 F 04/16/19 07:51 95 04/16/19 07:07 97.5 F L 04/16/19 03:51 97.6 F Weight Admit Weight 250 lb 0.067 oz Weight 251 lb 15.814 oz Most Recent Monitor Data Heart Rate from ECG 102 NIBP 101/60 NIBP BP-Mean 73 Respiration from ECG 18 SpO2 96 I&O: 04/15/19 04/16/19 04/17/19 06:59 06:59 06:59 Intake Total 2480 1150 Output Total 1450 850 Balance 1030 300 Result Diagrams: 04/16/19 05:50 04/16/19 05:50 Additional Labs: Laboratory Tests 04/12/19 04/13/19 04/13/19 14:14 03:17 09:32 Hgb 7.5 L Creatinine 2.75 H 2.27 H 04/13/19 04/14/19 04/15/19 19:49 03:17 05:25 Hgb 7.4 L 6.8 L 7.5 L Creatinine 04/15/19 05:25 Hgb Creatinine 1.70 H EKG Reviewed by me: Yes (Tele - SR and V-pacing) Hospitalist ROS - Medication Medications: Active Medications Generic Name Dose Route Start Last Admin Trade Name Freq PRN Reason Stop Dose Admin Acetaminophen 650 mg 04/12/19 16:32 04/14/19 15:00 Tylenol PO 650 mg Q4H PRN Administration Headache/Fever/Mild Pain (1-3) Atorvastatin Calcium 10 mg 04/12/19 21:00 04/15/19 20:31 Lipitor PO 10 mg HS CLAY Administration Diltiazem HCl 180 mg 04/13/19 09:00 04/16/19 09:45 Cardizem Cd PO 180 mg DAILY CLAY Administration Furosemide 20 mg 04/13/19 09:00 04/16/19 09:45 Lasix PO 20 mg DAILY CLAY Administration Metoprolol Succinate 100 mg 04/13/19 09:00 02/16/20 09:45 Toprol Xl PO 100 mg DAILY CLAY Administration Pantoprazole Sodium 40 mg 04/12/19 21:00 04/16/19 09:45 Protonix IVP 40 mg Q12HR CLAY Administration Sodium Chloride 10 ml 04/12/19 19:49 04/16/19 09:45 Normal Saline Pf FS 10 ml PRN PRN Administration RECONSTITUTION - Exam General Appearance: NAD General - other findings: pale, alert, responsive Eye: PERRL, anicteric sclera ENT: normocephalic atraumatic, no oropharyngeal lesions Neck: supple, symmetric, no JVD, no thyromegaly Heart: RRR, no gallops, no rubs, normal peripheral pulses Respiratory: CTAB, no wheezes, no rales, no ronchi, normal chest expansion Gastrointestinal: soft, non-tender, non-distended, normal bowel sounds Extremities: no cyanosis, no clubbing Skin: normal turgor, no lesions Neurological: cranial nerve grossly intact, no new deficit Musculoskeletal: normal tone, generalized weakness Psychiatric: normal affect, A&O x 3 Hosp A/P (1) Acute blood loss anemia Code(s): D62 - ACUTE POSTHEMORRHAGIC ANEMIA Status: Acute Plan: Stable currently, hold anticoagulation another 48h (2) GI bleeding Code(s): K92.2 - GASTROINTESTINAL HEMORRHAGE, UNSPECIFIED Status: Acute Plan: Distal esophagitis in conjunction with Xarelto, see #1, s/p 4u PRBC's (3) GOLDIE (acute kidney injury) Code(s): N17.9 - ACUTE KIDNEY FAILURE, UNSPECIFIED Status: Acute Plan: Improving after hypovolemia and severe blood loss anemia (4) Esophagitis Code(s): K20.9 - ESOPHAGITIS, UNSPECIFIED Status: Acute (5) Hepatocellular carcinoma Code(s): C22.0 - LIVER CELL CARCINOMA Status: Chronic Plan: Continue outpt follow up with medical oncology, resume [facility] - Plan PT/OT, out of bed/ambulate, DVT proph w/SCDs Stable currently Continue PPI Hold anticoagulation another 48h Resume FeSO4 OOB with PT AM lab: H/H Transfer to medical [place] home in 48h
[2019-04-16] MEDS ORDERED: Non-Formulary Item 1 EACH (Ferrous Sulfate [Ferrous Sulfate] 325 MG) PO SCH (15:00)
--- NOTE | 2019-04-16 15:55 | PRG ---
DATE OF SERVICE: 04/16/2019 SUBJECTIVE: Ms. Mejía has no complaints. She says she is feeling well. OBJECTIVE: VITAL SIGNS: She is afebrile. Blood pressure 118/62, heart rate 88. She has had no external bleeding. LUNGS: Clear. HEART: Regular rhythm. ABDOMEN: Soft. LABORATORY DATA: Hemoglobin today 7.7 and was 7.5 yesterday morning. Electrolytes are normal. BUN 61, creatinine 1.58, which is down from 2.27. IMPRESSION: Gastrointestinal bleed, clinically stable. She is transferring out of the intermediate care unit. We will sign off. Job ID: [id number]
[2019-04-16] MEDS: Ferrous Sulfate 325 MG TAB PO SCH ×2 (17:19→21:06)
[2019-04-16] MEDS: Atorvastatin Calcium 10 MG TAB PO SCH (21:06)
[2019-04-17 06:53] LABS: Anion Gap 11 mmol/L (10-20); BUN (Urea Nitrogen) 60 mg/dL (9.8-20.1); Calc. Creatinine Clearance 61 mL/min (70-130); Calcium 8.1 mg/dL (7.8-10.44); Carbon Dioxide 30 mmol/L (23-31); Chloride 100 mmol/L (98-107); Estimated GFR-MDRD 35; Glucose 186 mg/dL (83-110); Potassium 4.2 mmol/L (3.5-5.1); Sodium 137 mmol/L (136-145)
[2019-04-17] MEDS: Ferrous Sulfate 325 MG TAB PO SCH ×3 (08:27→20:08)
[2019-04-17] MEDS: Magnesium Oxide 400 MG TAB PO SCH (08:27)
[2019-04-17] MEDS: Furosemide 20 MG TAB PO SCH (08:27)
[2019-04-17] MEDS: Allopurinol 100 MG TAB PO SCH (08:27)
[2019-04-17] MEDS: Pantoprazole 40 MG VIAL IVP SCH ×2 (08:28→20:08)
[2019-04-17] MEDS: Cyanocobalamin (Vitamin B-12) 1,000 MCG TAB PO SCH (08:28)
[2019-04-17] MEDS ORDERED: Non-Formulary Item 1 EACH (Magnesium Oxide [Mag-Oxide] 400 MG) PO SCH (09:00)
[2019-04-17] MEDS ORDERED: LENVATINIB MESYLATE PO SCH ×2 (09:00)
[2019-04-17] MEDS ORDERED: Non-Formulary Item 1 EACH (Cholecalciferol (Vitamin D3) [Vitamin D3] 2,000 UNIT) PO SCH (09:00)
--- NOTE | 2019-04-17 13:28 | PRG ---
DATE OF SERVICE: 04/17/2019 SUBJECTIVE: Ms. Mejía has had no further overt bleeding. Her hemoglobin has been stable over the last couple days. Not rechecked this morning. However, again no overt bleeding. She has had a total of 4 units transfused with the most recent transfusion on 04/14/2019. OBJECTIVE: VITAL SIGNS: Temperature 97.8, pulse 99, blood pressure 124/79. GENERAL: She is in no acute distress. Awake and alert. LUNGS: Clear to auscultation bilaterally. HEART: Regular rate and rhythm without murmur. ABDOMEN: Soft, nontender, and nondistended. Bowel sounds are present. EXTREMITIES: She has a large bruise over the left arm from a needle stick for IV start. 2+ pitting lower extremity edema. IMPRESSION: 1. Gastrointestinal bleed. She had active oozing from erosive esophagitis in the distal esophagus. There was really no focal visible vessel to direct electrocautery. I think the bleeding was largely due to likely over-anticoagulation of the Xarelto; however, this cannot really be measured. 2. Acute renal failure. Her creatinine is trending down. Her BUN is trending down. Her dosing of the Xarelto might need to be adjusted based on the renal function if she does not fully return back to normal. 3. Cirrhosis with thrombocytopenia. 4. Hepatocellular carcinoma. RECOMMENDATIONS: 1. Recheck her hemoglobin tomorrow morning. 2. Consider restarting Xarelto in a couple of days. Adjusting the dose for renal function might be considered depending on the trend of this. Job ID: [id number]
--- NOTE | 2019-04-17 16:51 | PDOC.HOSPP ---
- Subjective Encounter Date: 04/17/19 Encounter Time: 16:35 Subjective: f/u for GI bleed due to distal esophagitis and Xarelto. s/p 4u PRBC's on PPI. Feels better overall but has persistent LE edema. Ambulated short distance in room today. Still SOB but off O2 for several hours. - Objective Vital Signs & Weight: Vital Signs (12 hours) Temp Pulse Resp BP Pulse Ox 04/17/19 16:36 103 H 24 H 111/67 93 L 04/17/19 11:46 97.8 F 99 22 H 124/79 92 L 04/17/19 08:00 96 04/17/19 07:43 98.0 F 93 22 H 134/81 96 Weight Admit Weight 250 lb 0.067 oz Weight 251 lb 15.814 oz Most Recent Monitor Data Heart Rate from ECG 89 NIBP 118/62 NIBP BP-Mean 80 Respiration from ECG 18 SpO2 94 I&O: 04/16/19 04/17/19 04/18/19 06:59 06:59 06:59 Intake Total 1150 300 Output Total 850 Balance 300 300 Result Diagrams: 04/16/19 05:50 04/17/19 04:46 Additional Labs: Laboratory Tests 04/12/19 04/13/19 04/13/19 14:14 03:17 09:32 Hgb 7.5 L Creatinine 2.75 H 2.27 H 04/13/19 04/14/19 04/15/19 19:49 03:17 05:25 Hgb 7.4 L 6.8 L 7.5 L Creatinine 04/15/19 05:25 Hgb Creatinine 1.70 H Hospitalist ROS - Medication Medications: Active Medications Generic Name Dose Route Start Last Admin Trade Name Freq PRN Reason Stop Dose Admin Acetaminophen 650 mg 04/12/19 16:32 04/14/19 15:00 Tylenol PO 650 mg Q4H PRN Administration Headache/Fever/Mild Pain (1-3) Allopurinol 100 mg 04/17/19 09:00 04/17/19 08:27 Zyloprim PO 100 mg DAILY CLAY Administration Atorvastatin Calcium 10 mg 04/12/19 21:00 04/16/19 21:06 Lipitor PO 10 mg HS CLAY Administration Cholecalciferol 2,000 units 04/17/19 09:00 04/17/19 08:28 Vitamin D3 PO 2,000 units DAILY CLAY Administration Cyanocobalamin 1,000 mcg 04/17/19 09:00 04/17/19 08:28 Vitamin B-12 PO 1,000 mcg DAILY CLAY Administration Diltiazem HCl 180 mg 04/13/19 09:00 04/17/19 08:28 Cardizem Cd PO 180 mg DAILY CLAY Administration Ferrous Sulfate 325 mg 04/16/19 15:00 04/17/19 08:27 Feosol PO 325 mg TID CLAY Administration Furosemide 20 mg 04/13/19 09:00 04/17/19 08:27 Lasix PO 20 mg DAILY CLAY Administration Magnesium Oxide 400 mg 04/17/19 09:00 04/17/19 08:27 Magnesium Oxide PO 400 mg DAILY CLAY Administration Metoprolol Succinate 100 mg 04/13/19 09:00 04/16/19 09:45 Toprol Xl PO 100 mg DAILY CLAY Administration Pantoprazole Sodium 40 mg 04/12/19 21:00 04/17/19 08:28 Protonix IVP 40 mg Q12HR CLAY Administration Sodium Chloride 10 ml 04/12/19 19:49 04/16/19 09:45 Normal Saline Pf FS 10 ml PRN PRN Administration RECONSTITUTION - Exam General Appearance: NAD, awake alert Eye: PERRL, anicteric sclera ENT: normocephalic atraumatic, no oropharyngeal lesions Neck: supple, symmetric, no JVD, no thyromegaly Heart: RRR, no gallops, no rubs, normal peripheral pulses Respiratory: tachypneic Respiratory - other findings: diminished in bases bilat Gastrointestinal: soft, non-tender, non-distended, normal bowel sounds Gastrointestinal - other findings: obese Extremities - other findings: 3+ edema of LE's Skin: normal turgor Neurological: cranial nerve grossly intact, no new deficit Musculoskeletal: normal tone, generalized weakness Psychiatric: normal affect, A&O x 3 Hosp A/P (1) Acute blood loss anemia Code(s): D62 - ACUTE POSTHEMORRHAGIC ANEMIA Status: Acute (2) GI bleeding Code(s): K92.2 - GASTROINTESTINAL HEMORRHAGE, UNSPECIFIED Status: Acute (3) GOLDIE (acute kidney injury) Code(s): N17.9 - ACUTE KIDNEY FAILURE, UNSPECIFIED Status: Acute (4) Esophagitis Code(s): K20.9 - ESOPHAGITIS, UNSPECIFIED Status: Acute (5) Hepatocellular carcinoma Code(s): C22.0 - LIVER CELL CARCINOMA Status: Chronic - Plan Stable currently Continue PPI Hold anticoagulation another 48h Resume FeSO4 OOB with PT AM lab: H/H Transfer to medical [place] home in 48h
[2019-04-17] MEDS ORDERED: Furosemide 20 MG/2 ML VIAL SLOW IVP SCH (17:00)
--- NOTE | 2019-04-17 19:29 | RAD ---
PORTABLE CHEST: DATE: 04-17-2019 Time: 6:04 p.m. History: Shortness of breath, hypoxia. Comparison: 04-13-2019 FINDINGS/IMPRESSION: Changes of mediastinum again seen, left sided pacing device remains in place. The heart size is enlar ged. A focal area of increased density in the right perihilar/infrahilar region is again seen. There is blunting of the right costophrenic angle. No pneumothoraces are identified. POS: OFF
[2019-04-17] MEDS: Atorvastatin Calcium 10 MG TAB PO SCH (20:08)
[2019-04-18 05:51] LABS: #Eosinphils 0.2 thou/uL (0.0-0.7); #Lymphocytes 0.4 thou/uL (1.20-3.40); #Monocytes 0.5 thou/uL (0.11-0.59); %Basophils 0.7 % (0.0-1.0); %Eosinophils 4.7 % (0.0-10.0); %Lymphocytes 9.4 % (21.0-51.0); %Monocytes 12.4 % (0.0-10.0); %Neutrophils 72.8 % (42.0-75.0); Hemoglobin 8.2 g/dL (12.0-16.0); Mean Corpuscular HGB CONC 32.9 g/dL (32.0-36.0); Mean Corpuscular Volume 97.5 fL (78.0-98.0); Mean Platelet Volume 9.2 fL (7.4-10.4); Platelet Count 103 thou/uL (130-400); RBC Distribution Width 17.6 % (11.5-14.5); Red Blood Cell (RBC) Count 2.55 mill/uL (4.20-5.40); White Blood Cell (WBC) Count 4.1 thou/uL (4.8-10.8)
[2019-04-18 06:09] LABS: ALT (SGPT) 21 U/L (8-55); AST (SGOT) 15 U/L (5-34); Albumin 2.6 g/dL (3.4-4.8); Alkaline Phosphatase 144 U/L (40-110); Anion Gap 11 mmol/L (10-20); BUN (Urea Nitrogen) 53 mg/dL (9.8-20.1); Bilirubin, Total 0.7 mg/dL (0.2-1.2); Calc. Creatinine Clearance 61 mL/min (70-130); Carbon Dioxide 30 mmol/L (23-31); Chloride 99 mmol/L (98-107); Estimated GFR-MDRD 35; Globulin 2.1 g/dL (2.4-3.5); Glucose 142 mg/dL (83-110); Potassium 3.6 mmol/L (3.5-5.1); Protein, Total 4.7 g/dL (6.0-8.3); Sodium 136 mmol/L (136-145)
[2019-04-18] MEDS: Pantoprazole 40 MG VIAL IVP SCH ×2 (08:05→20:09)
[2019-04-18] MEDS: Magnesium Oxide 400 MG TAB PO SCH (08:06)
[2019-04-18] MEDS: Ferrous Sulfate 325 MG TAB PO SCH ×3 (08:06→20:09)
[2019-04-18] MEDS: Cyanocobalamin (Vitamin B-12) 1,000 MCG TAB PO SCH (08:07)
[2019-04-18] MEDS: Furosemide 20 MG TAB PO SCH (08:07)
[2019-04-18] MEDS: Allopurinol 100 MG TAB PO SCH (08:07)
--- NOTE | 2019-04-18 15:21 | PDOC.HOSPP ---
- Subjective Encounter Date: 04/18/19 Encounter Time: 15:15 Subjective: f/u for GI bleed s/p 4u PRBC's and now stable hgb. Feels better overall and ambulated with PT using RW. Less SOB today. - Objective Vital Signs & Weight: Vital Signs (12 hours) Temp Pulse Resp BP Pulse Ox Pulse Ox Pulse Ox 04/18/19 11:18 97.9 F 116 H 20 139/82 95 04/18/19 10:58 96 94 L 04/18/19 08:00 94 L 04/18/19 07:14 98.2 F 88 20 110/63 94 L Weight Admit Weight 250 lb 0.067 oz Weight 251 lb 15.814 oz Most Recent Monitor Data Heart Rate from ECG 89 NIBP 118/62 NIBP BP-Mean 80 Respiration from ECG 18 SpO2 94 I&O: 04/17/19 04/18/19 04/19/19 06:59 06:59 06:59 Intake Total 300 Balance 300 Result Diagrams: 04/18/19 05:30 04/18/19 05:30 Additional Labs: Laboratory Tests 04/12/19 04/13/19 04/13/19 14:14 03:17 09:32 Hgb 7.5 L Creatinine 2.75 H 2.27 H 04/13/19 04/14/19 04/15/19 19:49 03:17 05:25 Hgb 7.4 L 6.8 L 7.5 L Creatinine 04/15/19 05:25 Hgb Creatinine 1.70 H Radiology Reviewed by me: Yes (PCXR - R infrahilar opacities, small effusions R) Hospitalist ROS - Medication Medications: Active Medications Generic Name Dose Route Start Last Admin Trade Name Freq PRN Reason Stop Dose Admin Acetaminophen 650 mg 04/12/19 16:32 04/14/19 15:00 Tylenol PO 650 mg Q4H PRN Administration Headache/Fever/Mild Pain (1-3) Allopurinol 100 mg 04/17/19 09:00 04/18/19 08:07 Zyloprim PO 100 mg DAILY CLAY Administration Atorvastatin Calcium 10 mg 04/12/19 21:00 04/17/19 20:08 Lipitor PO 10 mg HS CLAY Administration Cholecalciferol 2,000 units 04/17/19 09:00 04/18/19 08:06 Vitamin D3 PO 2,000 units DAILY CLAY Administration Cyanocobalamin 1,000 mcg 04/17/19 09:00 04/18/19 08:07 Vitamin B-12 PO 1,000 mcg DAILY CLAY Administration Diltiazem HCl 180 mg 04/13/19 09:00 04/18/19 08:07 Cardizem Cd PO 180 mg DAILY CLAY Administration Ferrous Sulfate 325 mg 04/16/19 15:00 04/18/19 15:17 Feosol PO 325 mg TID CLAY Administration Furosemide 20 mg 04/13/19 09:00 04/18/19 08:07 Lasix PO 20 mg DAILY CLAY Administration Magnesium Oxide 400 mg 04/17/19 09:00 04/18/19 08:06 Magnesium Oxide PO 400 mg DAILY CLAY Administration Metoprolol Succinate 100 mg 04/13/19 09:00 04/18/19 08:06 Toprol Xl PO Not Given DAILY CLAY Pantoprazole Sodium 40 mg 04/12/19 21:00 04/18/19 08:05 Protonix IVP 40 mg Q12HR CLAY Administration Sodium Chloride 10 ml 04/12/19 19:49 04/16/19 09:45 Normal Saline Pf FS 10 ml PRN PRN Administration RECONSTITUTION - Exam General Appearance: NAD, awake alert Eye: PERRL, anicteric sclera ENT: normocephalic atraumatic, no oropharyngeal lesions Neck: supple, symmetric, no JVD, no thyromegaly Heart: RRR, no gallops, no rubs, normal peripheral pulses Respiratory: no wheezes Respiratory - other findings: diminished in bases Gastrointestinal: soft, non-tender, non-distended, normal bowel sounds Gastrointestinal - other findings: obese Extremities: 2+ LE edema Skin: normal turgor Neurological: cranial nerve grossly intact, no new deficit Musculoskeletal: normal tone, generalized weakness Psychiatric: normal affect, A&O x 3 Hosp A/P (1) Acute blood loss anemia Code(s): D62 - ACUTE POSTHEMORRHAGIC ANEMIA Status: Acute Plan: s/p 4u PRBC's, H/H stable currrently (2) GI bleeding Code(s): K92.2 - GASTROINTESTINAL HEMORRHAGE, UNSPECIFIED Status: Acute Plan: Secondary to distal esophagitis and Xarelto, see above #1 (3) GOLDIE (acute kidney injury) Code(s): N17.9 - ACUTE KIDNEY FAILURE, UNSPECIFIED Status: Acute (4) Esophagitis Code(s): K20.9 - ESOPHAGITIS, UNSPECIFIED Status: Acute (5) Hepatocellular carcinoma Code(s): C22.0 - LIVER CELL CARCINOMA Status: Chronic - Plan PT/OT, social studies department chair, out of bed/ambulate, DVT proph w/SCDs Stable currently Continue PPI Hold anticoagulation another 48h Resume FeSO4 OOB with PT Lasix 20mg IV x 1 dose AM lab: H/H SNF pending
[2019-04-18] MEDS ORDERED: Furosemide 20 MG/2 ML VIAL SLOW IVP ONE (15:30)
[2019-04-18] MEDS: Atorvastatin Calcium 10 MG TAB PO SCH (20:09)
--- NOTE | 2019-04-18 21:20 | PRG ---
DATE OF SERVICE: 04/18/2019 SUBJECTIVE: Ms. Mejía has no abdominal pain. She has had no further evidence of overt bleeding. She has had some small hard dark stools likely related to iron. OBJECTIVE: VITAL SIGNS: Temperature is 98.1, pulse 78, blood pressure 103/64. GENERAL: She is in no acute distress. Alert and oriented x3. LUNGS: Clear to auscultation bilaterally. HEART: Regular rate and rhythm without murmur. ABDOMEN: Soft, nontender, nondistended. Bowel sounds are present. EXTREMITIES: 2+ pitting lower extremity edema. LABORATORY DATA: Hemoglobin is stable at 8.2. Creatinine remains stable at 1.46. IMPRESSION: 1. Gastrointestinal bleed with active bleeding from mild erosive esophagitis, it is now resolved. Her hemoglobin is stable. The actual bleeding did not seem to come from a significant ulcer vessel and I suspect her primary issue was more toxicity from the Xarelto in the setting of renal insufficiency. 2. History of mitral valve replacement, which will require chronic anticoagulation. Given that her bleeding has resolved and she had no significant bleeding source identified by endoscopy, she should be ready to restart her anticoagulation in a day or two. Regarding dosing, if she should restart at the full 20 mg or reduced 15 mg, I would defer to Nephrology, Cardiology and Internal Medicine. 3. Cirrhosis of the liver. 4. Hepatocellular carcinoma. RECOMMENDATIONS: 1. Continue proton pump inhibitor. 2. She could likely restart anticoagulation from a GI standpoint in the next couple of days. Again, I think the dosing of the Xarelto should be taken into consideration with her renal failure, liver failure, age and recent episode of bleeding. I will defer this to Nephrology, Cardiology and Internal Medicine. 3. Follow up with Oncology regarding treatment of her hepatocellular carcinoma. 4. I will sign off for now. Please call if GI can be of assistance. Job ID: [id number]
[2019-04-19] MEDS: Pantoprazole 40 MG VIAL IVP SCH ×2 (09:42→20:07)
[2019-04-19] MEDS: Allopurinol 100 MG TAB PO SCH (09:45)
[2019-04-19] MEDS: Cyanocobalamin (Vitamin B-12) 1,000 MCG TAB PO SCH (09:45)
[2019-04-19] MEDS: Magnesium Oxide 400 MG TAB PO SCH (09:45)
[2019-04-19] MEDS: Furosemide 20 MG TAB PO SCH (09:45)
[2019-04-19] MEDS: Ferrous Sulfate 325 MG TAB PO SCH ×3 (09:45→20:07)
[2019-04-19 13:46] VITALS: BMI 43.2
--- NOTE | 2019-04-19 16:16 | PDOC.HOSPP ---
- Subjective Encounter Date: 04/19/19 Encounter Time: 16:15 Subjective: f/u for GI bleed s/p 4u PRBC's with stable hemoglobin. Feels ok overall and ambulating in room. Tolerating po intake. - Objective Vital Signs & Weight: Vital Signs (12 hours) Temp Pulse Resp BP Pulse Ox Pulse Ox Pulse Ox 04/19/19 09:20 94 L 90 L 04/19/19 08:04 98.1 F 112 H 20 120/73 94 L 04/19/19 08:00 94 L Weight Admit Weight 250 lb 0.067 oz Weight 251 lb 15.814 oz Most Recent Monitor Data Heart Rate from ECG 89 NIBP 118/62 NIBP BP-Mean 80 Respiration from ECG 18 SpO2 94 I&O: 04/18/19 04/19/19 04/20/19 06:59 06:59 06:59 Intake Total 500 Balance 500 Result Diagrams: 04/18/19 05:30 04/18/19 05:30 Additional Labs: Laboratory Tests 04/12/19 04/13/19 04/13/19 14:14 03:17 09:32 Hgb 7.5 L Creatinine 2.75 H 2.27 H 04/13/19 04/14/19 04/15/19 19:49 03:17 05:25 Hgb 7.4 L 6.8 L 7.5 L Creatinine 04/15/19 05:25 Hgb Creatinine 1.70 H Hospitalist ROS - Medication Medications: Active Medications Generic Name Dose Route Start Last Admin Trade Name Freq PRN Reason Stop Dose Admin Acetaminophen 650 mg 04/12/19 16:32 04/14/19 15:00 Tylenol PO 650 mg Q4H PRN Administration Headache/Fever/Mild Pain (1-3) Allopurinol 100 mg 04/17/19 09:00 04/19/19 09:45 Zyloprim PO 100 mg DAILY CLAY Administration Atorvastatin Calcium 10 mg 04/12/19 21:00 04/18/19 20:09 Lipitor PO 10 mg HS CLAY Administration Cholecalciferol 2,000 units 04/17/19 09:00 04/19/19 09:45 Vitamin D3 PO 2,000 units DAILY CLAY Administration Cyanocobalamin 1,000 mcg 04/17/19 09:00 04/19/19 09:45 Vitamin B-12 PO 1,000 mcg DAILY CLAY Administration Diltiazem HCl 180 mg 04/13/19 09:00 04/19/19 09:45 Cardizem Cd PO 180 mg DAILY CLAY Administration Ferrous Sulfate 325 mg 04/16/19 15:00 04/19/19 15:34 Feosol PO 325 mg TID CLAY Administration Furosemide 20 mg 04/13/19 09:00 04/19/19 09:45 Lasix PO 20 mg DAILY CLAY Administration Magnesium Oxide 400 mg 04/17/19 09:00 04/19/19 09:45 Magnesium Oxide PO 400 mg DAILY CLAY Administration Metoprolol Succinate 100 mg 04/13/19 09:00 04/19/19 09:45 Toprol Xl PO Not Given DAILY CLAY Pantoprazole Sodium 40 mg 04/12/19 21:00 04/19/19 09:42 Protonix IVP 40 mg Q12HR CLAY Administration Sodium Chloride 10 ml 04/12/19 19:49 04/16/19 09:45 Normal Saline Pf FS 10 ml PRN PRN Administration RECONSTITUTION - Exam General Appearance: NAD, awake alert Eye: PERRL, anicteric sclera ENT: normocephalic atraumatic, no oropharyngeal lesions Neck: supple, symmetric, no JVD, no thyromegaly, no lymphadenopathy Heart: RRR, no gallops, no rubs, normal peripheral pulses Respiratory: CTAB, no wheezes, no rales Respiratory - other findings: diminished in bases Gastrointestinal: soft, non-tender, non-distended, normal bowel sounds Extremities: no cyanosis, 2+ LE edema Skin: normal turgor, no lesions Musculoskeletal: normal tone, generalized weakness Psychiatric: normal affect, A&O x 3 Hosp A/P (1) Acute blood loss anemia Code(s): D62 - ACUTE POSTHEMORRHAGIC ANEMIA Status: Acute Plan: Hemoglobin stabilizing, continue serial monitoring, PPI (2) GI bleeding Code(s): K92.2 - GASTROINTESTINAL HEMORRHAGE, UNSPECIFIED Status: Acute Plan: s/p 4u PRBC's, PPI (3) GOLDIE (acute kidney injury) Code(s): N17.9 - ACUTE KIDNEY FAILURE, UNSPECIFIED Status: Acute Plan: Improving, avoid nephrotoxic meds and limit contrast exposure (4) Esophagitis Code(s): K20.9 - ESOPHAGITIS, UNSPECIFIED Status: Acute Plan: PPI, hold anticoagulation (5) Hepatocellular carcinoma Code(s): C22.0 - LIVER CELL CARCINOMA Status: Chronic - Plan PT/OT, social media intern, out of bed/ambulate Stable currently Continue PPI Hold anticoagulation another 24h Resume FeSO4 OOB with PT AM lab: H/H SNF pending
[2019-04-19] MEDS: Atorvastatin Calcium 10 MG TAB PO SCH (20:07)
[2019-04-20] MEDS: Allopurinol 100 MG TAB PO SCH (08:11)
[2019-04-20] MEDS: Furosemide 20 MG TAB PO SCH (08:11)
[2019-04-20] MEDS: Cyanocobalamin (Vitamin B-12) 1,000 MCG TAB PO SCH (08:12)
[2019-04-20] MEDS: Ferrous Sulfate 325 MG TAB PO SCH ×3 (08:12→20:08)
[2019-04-20] MEDS: Pantoprazole 40 MG VIAL IVP SCH (08:12)
[2019-04-20] MEDS: Magnesium Oxide 400 MG TAB PO SCH (08:12)
--- NOTE | 2019-04-20 14:46 | PDOC.EVN ---
Event Note - Event Note Event Note: Admit to [facility]
--- NOTE | 2019-04-20 16:45 | EKG ---
Test Reason : Blood Pressure : / mmHG Vent. Rate : 107 BPM Atrial Rate : 107 BPM P-R Int : 000 ms QRS Dur : 138 ms QT Int : 382 ms P-R-T Axes : -03 017 168 degrees QTc Int : 509 ms Electronic ventricular pacemaker Confirmed by ROSSY RODRIGUEZ DO ([id number]), development editor SHANTI BALL ([id number]) on 04/20/2019 4:44:54 PM Referred By: Confirmed By:ROSSY RODRIGUEZ DO
--- NOTE | 2019-04-20 17:17 | DIS ---
DATE OF ADMISSION: 04/12/2019 DATE OF DISCHARGE: 04/20/2019 DISCHARGE DIAGNOSES: 1. Acute GI bleeding, status post 4 units of packed red blood cells. 2. Acute blood loss anemia secondary to #1, improved. 3. Acute kidney injury, resolved. 4. Esophagitis. 5. Hepatocellular carcinoma, on chronic chemotherapy. 6. History of atrial flutter with mitral valve replacement, on chronic anticoagulation with Xarelto. 7. Status post pacemaker placement. 8. Acute hypoxic respiratory failure. CONSULTATIONS: 1. Dr. Jose A Mancera and Dr. Bayron Tai with GI Service. 2. Dr. Morel with Pulmonology Service. 3. Medical Oncology Service. PERTINENT LABORATORY DATA AND X-RAY FINDINGS: Creatinine ranged between 1.46 to 2.75, estimated GFR ranged between 17 to 35. Troponin-I ranged between 0.045 to 0.084. CBC showed a hemoglobin ranging between 4.6 to 8.2, MCV ranged between 98 to 100. Portable chest x-ray dated 04/13/2019 showed a focal opacity in the medial right lung base. EGD dated 04/13/2019 showed focal esophagitis at the Z-line. Small hiatal hernia. Recommendations for medical management with proton pump inhibitor. HOSPITAL COURSE: The patient was initially admitted after presenting with shortness of breath and symptomatic anemia with initial hemoglobin of 4.6 at the time of evaluation in the emergency room. The patient on chronic aspirin and Xarelto, status post pacemaker placement in addition to mitral valve replacement and history of atrial flutter. The patient was typed and crossed and received a total of 4 units of packed red blood cells during the hospital course. The patient was given intravenous Protonix and held on aspirin and Xarelto. The patient was evaluated by the GI Service, undergoing EGD evaluation showing regional esophagitis at the Z-line with focal oozing, not amenable to any surgical management. The patient was monitored with serial hemoglobins showing overall stabilization of values, status post 4 units of packed red blood cells. The patient continued on IV Protonix, transitioned to oral Protonix 40 mg b.i.d. The patient continued off anticoagulation with recommendations to hold anticoagulation for additional 5 days after discharge. The patient was also evaluated for persistent shortness of breath and hypoxia requiring low volume oxygen supplementation. The patient was evaluated and met criteria for home oxygen therapy after discharge. The patient remained deconditioned and was deemed an appropriate candidate for ongoing skilled care and will transition to [facility] after discharge. I have examined the patient at the time of discharge and discussed followup instructions. The patient verbalized understanding and in agreement, ready for discharge on 04/20/2019. DISCHARGE MEDICATIONS: 1. Allopurinol 100 mg p.o. daily. 2. Aspirin 81 mg p.o. daily. 3. Vitamin D3, 2000 units p.o. daily. 4. Vitamin B12, 1000 mcg p.o. daily. 5. Lenvima 12 mg p.o. daily. 6. Magnesium oxide 400 mg p.o. daily. 7. Metoprolol succinate 100 mg p.o. daily. 8. Simvastatin 20 mg p.o. at bedtime. 9. Cardizem CD 180 mg p.o. daily. 10. Ferrous sulfate 325 mg p.o. t.i.d. 11. Protonix 40 mg p.o. b.i.d. 12. Xarelto 20 mg p.o. at bedtime, resume on 04/25/2019. FOLLOWUP: 1. The patient may follow up with her primary care provider, Dr. Lanny Ballard within 7 days of discharge. 2. The patient will follow up with Dr. Jose A Mancera with GI Service. 3. The patient will follow up with Dr. Crispin Naranjo with Cardiology Service. 4. The patient will follow up with Dr. Marley Valderrama with Medical Oncology Service. CONDITION ON DISCHARGE: Fair. ACTIVITY: Ad-jim. SPECIAL INSTRUCTIONS: The patient will be set up with home oxygen therapy at 2 L/minute by nasal cannula continuously. The patient will admit to [facility] on 04/24/2019. DIET: Heart healthy. CODE STATUS: Full. DISPOSITION: To home, 04/20/2019. TIME SPENT: Total time preparing and coordinating discharge, 37 minutes. Job ID: [id number]
--- NOTE | 2019-04-20 19:27 | PDOC.HOSPP ---
- Subjective Encounter Date: 04/20/19 Encounter Time: 13:00 Subjective: f/u for GI bleeding s/p 4u PRBC's, hypoxia on O2 supplementation @ 2L/min NC. States feeling better overall and anxious to return home. - Objective Vital Signs & Weight: Vital Signs (12 hours) Temp Pulse Pulse Pulse Resp BP BP 04/20/19 13:24 109 H 141/83 H 04/20/19 11:22 97.7 F 101 H 18 04/20/19 08:51 116 H 127/80 04/20/19 08:00 112 H BP Pulse Ox Pulse Ox Pulse Ox Pulse Ox Pulse Ox 04/20/19 13:24 86 L 92 L 87 L 04/20/19 11:22 104/68 89 L 04/20/19 08:51 92 L 88 L 91 L 04/20/19 08:00 94 L Weight Admit Weight 250 lb 0.067 oz Weight 251 lb 15.814 oz Most Recent Monitor Data Heart Rate from ECG 89 NIBP 118/62 NIBP BP-Mean 80 Respiration from ECG 18 SpO2 94 I&O: 04/19/19 04/20/19 04/21/19 06:59 06:59 06:59 Intake Total 500 Balance 500 Result Diagrams: 04/18/19 05:30 04/18/19 05:30 Additional Labs: Laboratory Tests 04/12/19 04/13/19 04/13/19 14:14 03:17 09:32 Hgb 7.5 L Creatinine 2.75 H 2.27 H 04/13/19 04/14/19 04/15/19 19:49 03:17 05:25 Hgb 7.4 L 6.8 L 7.5 L Creatinine 04/15/19 05:25 Hgb Creatinine 1.70 H Hospitalist ROS - Medication Medications: Active Medications Generic Name Dose Route Start Last Admin Trade Name Freq PRN Reason Stop Dose Admin Acetaminophen 650 mg 04/12/19 16:32 04/14/19 15:00 Tylenol PO 650 mg Q4H PRN Administration Headache/Fever/Mild Pain (1-3) Allopurinol 100 mg 04/17/19 09:00 04/20/19 08:11 Zyloprim PO 100 mg DAILY CLAY Administration Atorvastatin Calcium 10 mg 04/12/19 21:00 04/19/19 20:07 Lipitor PO 10 mg HS CLAY Administration Cholecalciferol 2,000 units 04/17/19 09:00 04/20/19 08:11 Vitamin D3 PO 2,000 units DAILY CLAY Administration Cyanocobalamin 1,000 mcg 04/17/19 09:00 04/20/19 08:12 Vitamin B-12 PO 1,000 mcg DAILY CLAY Administration Diltiazem HCl 180 mg 04/13/19 09:00 04/20/19 08:11 Cardizem Cd PO 180 mg DAILY CLAY Administration Ferrous Sulfate 325 mg 04/16/19 15:00 04/20/19 14:05 Feosol PO 325 mg TID CLAY Administration Furosemide 20 mg 04/13/19 09:00 04/20/19 08:11 Lasix PO 20 mg DAILY CLAY Administration Magnesium Oxide 400 mg 04/17/19 09:00 04/20/19 08:12 Magnesium Oxide PO 400 mg DAILY CLAY Administration Metoprolol Succinate 100 mg 04/13/19 09:00 04/20/19 08:12 Toprol Xl PO 100 mg DAILY CLAY Administration Pantoprazole Sodium 40 mg 04/12/19 21:00 04/20/19 08:12 Protonix IVP 40 mg Q12HR CLAY Administration Sodium Chloride 10 ml 04/12/19 19:49 04/16/19 09:45 Normal Saline Pf FS 10 ml PRN PRN Administration RECONSTITUTION - Exam General Appearance: NAD, awake alert Eye: PERRL, anicteric sclera ENT: normocephalic atraumatic, no oropharyngeal lesions Neck: supple, symmetric, no JVD, no thyromegaly, no lymphadenopathy Heart: RRR, no gallops, no rubs, normal peripheral pulses, murmur present Heart - other findings: S1, S2 Respiratory: tachypneic Respiratory - other findings: diminished in bases, occasional rhonchi Gastrointestinal: soft, non-tender, non-distended, normal bowel sounds, no palpable masses Extremities: no cyanosis, 2+ LE edema Skin: normal turgor Neurological: cranial nerve grossly intact, no new deficit Musculoskeletal: normal tone, generalized weakness Psychiatric: normal affect, A&O x 3 Hosp A/P (1) Acute blood loss anemia Code(s): D62 - ACUTE POSTHEMORRHAGIC ANEMIA Status: Acute Plan: s/p 4u PRBC's, serial H/H monitoring, hold anticoagulation (2) GI bleeding Code(s): K92.2 - GASTROINTESTINAL HEMORRHAGE, UNSPECIFIED Status: Acute Plan: Secondary to esophagitis and Xarelto, stable currently (3) GOLDIE (acute kidney injury) Code(s): N17.9 - ACUTE KIDNEY FAILURE, UNSPECIFIED Status: Acute (4) Esophagitis Code(s): K20.9 - ESOPHAGITIS, UNSPECIFIED Status: Acute Plan: Protonix 40mg po BID (5) Hepatocellular carcinoma Code(s): C22.0 - LIVER CELL CARCINOMA Status: Chronic Plan: Outpt follow up with medical oncology - Plan PT/OT, social service technician, respiratory therapy, out of bed/ambulate, DVT proph w/ SCDs Stable currently Continue Protonix 40mg BID Hold anticoagulation another 5 days Resume FeSO4 325mg BID OOB with PT Assess for home O2, persistent hypoxia likely due to anemia, bioprosthetic MV, pulmonary edema AM lab: H/H Likely home in 24h
[2019-04-20] MEDS: Atorvastatin Calcium 10 MG TAB PO SCH (20:08)
[2019-04-21 07:22] VITALS: BP 109/67; TEMP 97.7
[2019-04-21] MEDS: Magnesium Oxide 400 MG TAB PO SCH (07:40)
[2019-04-21] MEDS: Allopurinol 100 MG TAB PO SCH (07:40)
[2019-04-21] MEDS: Furosemide 20 MG TAB PO SCH (07:41)
[2019-04-21] MEDS: Ferrous Sulfate 325 MG TAB PO SCH (07:41)
[2019-04-21] MEDS: Cyanocobalamin (Vitamin B-12) 1,000 MCG TAB PO SCH (07:41)
--- NOTE | 2019-04-24 04:11 | PQF ---
CATALINA CHAMORRO CHARLES DO [id number] CLINICAL DOCUMENTATION CLARIFICATION FORM: POST DISCHARGE Addendum to original discharge summary date: ____ Late entry note date: __ DATE:04/24/2019 ATTN: Jose A Gautam Please exercise your independent, professional judgment in responding to the clarification form. Clinical indicators are provided on the bottom of this form for your review In you clinical opinion based on clinical findings below, can you please further clarify documentation of GI bleed due to Xarelto if: Please check appropriate box(s): [ x ] Adverse Effect of Xarelto [ ] Toxic Effect of Xarelto [ ] Overdose of Xarelto [ ] Other diagnosis [ ] Unable to determine For continuity of documentation, please document condition throughout progress notes and discharge summary. Thank You. CLINICAL INDICATORS - SIGNS / SYMPTOMS / LABS Laboratory 2 RBC 1.39, Hgb 4.6, Hct 15.1 Laboratory Coagulation 2 PT 14.4, INR 1.1, APTT 22.4 GE consult p1 04/12 Dr Mancera Sha has has progressive anemia and this was thought to be due to lenvatinib GE consult p1 04/12 Dr Mancera She has bowel movement daily without constipation or diarrhea, but does take iron and has dark brown stools with that GE consult p2 2 Dr Mancera Severe anemia most likely some degree of acute gastrointestinal blood loss on chronic anticoagulant PN p1 2 Dr Butcherthe pt had mild esophagitis at GE junction, but in the setting of anticoagulant, this was oozing on EGD two days ago. Agree with Dr Mancera that Xarelto toxicity is likley the blame here. PN p1 04/17 Dr Mancera I think the bleeding was largely due to likely over- anticoagulation of the Xarelto, , however this cannot really measured RISK FACTORS H&P p1 2 73 year-old Female H&P p1 2 Hepatocellular Carcinoma H&P p1 04/12 s/p Mitral valve replacement and Pacemaker taking Aspirin and Xarelto H&P p1 04/12 Severe symptomatic macrocytic anemia H&P p1 04/12 GOLDIE EGD result p1 04/13 Erosive Esophagitis PN p1 04/14 Morbid Obesity TREATMENTS: APR 30rotonix IV 40mg APR 30 IVF 1L Blood bank 04/12 RBC Operative report 04/13 EGD, diagnostic GE consult 03/12 Jose A Christina H&P p2 04/12 Holding aspirin and Xarelto (This form is maintained as a part of the permanent medical record) 2014 [employer]. All Rights Reserved [email or web address]
--- NOTE | 2019-04-24 10:55 | DIS ---
DATE OF ADMISSION: 04/12/2019 DATE OF DISCHARGE: 04/21/2019 ADDENDUM: HOSPITAL COURSE: The patient's discharge was held for approximately 24 hours due to coordination for home oxygen set up. The patient remained clinically stable in the last 24 hours with how clinical decompensation. The patient tolerating regular oral intake and ambulating short distances without difficulty. The patient remains on oxygen at 2 L/minute by nasal cannula with O2 saturations in the low 90% range. I have examined the patient at the time of discharge and discussed followup instructions. The patient will transition to [facility] on 04/24/2019. The patient ready for discharge on 04/21/2019. Please see dictated discharge summary on 04/20/2019 for full details and medication reconciliation. Job ID: [id number]
== END 2019-04-21 11:16 | disposition home or self-care (01) | DRG 377 ==
LOC: ERS 13:48 → CCU 16:00 → IMCU/EMU 04-14 00:07 → T4-A 04-16 13:57
PROVIDERS: ADMIT Internal Medicine; ATTEND Family Medicine
PROC: 0DJ08ZZ Inspection of Upper Intestinal Tract, Via Natural or Artificial Opening Endoscopic (ICD-10-PCS; principal; 2019-04-12)
PROC: 30233N1 Transfusion of Nonautologous Red Blood Cells into Peripheral Vein, Percutaneous Approach (ICD-10-PCS; 2019-04-12)
DX: K92.1 Melena (principal); J96.01 Acute respiratory failure with hypoxia; D62 Acute posthemorrhagic anemia; N17.9 Acute kidney failure, unspecified; C22.0 Liver cell carcinoma; Z68.41 Body mass index [BMI] 40.0-44.9, adult; D68.32 Hemorrhagic disorder due to extrinsic circulating anticoagulants; I50.32 Chronic diastolic (congestive) heart failure; I13.0 Hypertensive heart and chronic kidney disease with heart failure and stage 1 through stage 4 chronic kidney disease, or unspecified chronic kidney disease; K46.9 Unspecified abdominal hernia without obstruction or gangrene; M10.9 Gout, unspecified; E78.5 Hyperlipidemia, unspecified; K74.60 Unspecified cirrhosis of liver; E78.00 Pure hypercholesterolemia, unspecified; E66.01 Morbid (severe) obesity due to excess calories; K80.20 Calculus of gallbladder without cholecystitis without obstruction; E11.65 Type 2 diabetes mellitus with hyperglycemia; K20.8 Other esophagitis; N18.9 Chronic kidney disease, unspecified; E11.22 Type 2 diabetes mellitus with diabetic chronic kidney disease; T45.515A Adverse effect of anticoagulants, initial encounter; Z79.01 Long term (current) use of anticoagulants; Z95.2 Presence of prosthetic heart valve; Z95.0 Presence of cardiac pacemaker; Z95.3 Presence of xenogenic heart valve; Z90.710 Acquired absence of both cervix and uterus; Z87.891 Personal history of nicotine dependence; Z88.0 Allergy status to penicillin; Z79.899 Other long term (current) drug therapy; Z79.82 Long term (current) use of aspirin
CPT/HCPCS: 36415; 36416; 36430; 71045; 80048; 80053; 82553; 82728; 84484; 85025; 85610; 85730; 86850; 86870; 86900; 86901; 86922; 93005; 96360; C9113; J0744; J1940; J2354; J2704; J7050; P9016

== ENCOUNTER 2019-05-02 07:58 | Observation (INO) | payer MEDICARE, BC ==
[2019-05-02] MEDS ORDERED: Acetaminophen 500 MG TAB PO SCH (08:45)
[2019-05-02] MEDS ORDERED: diphenhydrAMINE 25 MG CAP PO SCH (08:45)
[2019-05-02 11:10] VITALS: BMI 45.5
[2019-05-02] MEDS ORDERED: hydrALAZINE 20 MG/ML VIAL SLOW IVP PRN (15:34)
[2019-05-02] MEDS ORDERED: Acetaminophen 500 MG TAB PO PRN (15:34)
[2019-05-02] MEDS ORDERED: Ondansetron PF 4 MG/2 ML Vial IVP PRN (15:34)
[2019-05-02] MEDS ORDERED: Ondansetron ODT 4 MG TAB PO PRN (15:34)
[2019-05-02] MEDS ORDERED: diphenhydrAMINE 25 MG CAP PO PRN (15:34)
[2019-05-02] MEDS ORDERED: Furosemide 20 MG/2 ML VIAL SLOW IVP SCH (16:30)
--- NOTE | 2019-05-02 17:10 | HP ---
PRIMARY CARE PROVIDER: Lanny Ballard MD CHIEF COMPLAINT: Low hemoglobin. HISTORY OF PRESENT ILLNESS: This is a 73-year-old female, who presents to [facility] in direct transfer from [facility], where the patient was recently transferred on 04/21/2019 after a 9-day hospital stay for acute GI bleed, status post 4 units of packed red blood cells due to esophagitis and chronic anticoagulation. The patient was discharged to snf care and has been undergoing physical and occupational therapy at [place]. The patient states she underwent a routine CBC evaluation and states her hemoglobin was quoted at 7.1. The patient states she was referred to the hospital to receive a blood transfusion after concern for decrease in hemoglobin. The patient denies any melena, hematemesis, or active blood loss. The patient continues to take Protonix without complication. The patient denied any specific direct symptoms related to the anemia, diarrhea, fever, chills, or new skin rash. Initial hemoglobin noted on 05/01/2019 shows level 7.6 and prior hemoglobin on 04/18/2019, 8.2. PAST MEDICAL HISTORY: 1. Recent GI bleeding secondary to esophagitis and chronic anticoagulation with Xarelto. 2. Acute blood loss anemia, status post 4 units of packed red blood cells. 3. Esophagitis. 4. Hepatocellular carcinoma, on chronic chemotherapy. 5. Atrial flutter with mitral valve replacement on chronic anticoagulation with Xarelto. 6. Acute hypoxic respiratory failure on chronic oxygen supplementation at 2 L/minute by nasal cannula. 7. Deconditioning. PAST SURGICAL HISTORY: 1. Status post pacemaker placement secondary to atrial flutter. 2. Status post EGD showing esophagitis. 3. Status post hysterectomy. 4. Status post mitral valve replacement x2. CURRENT MEDICATIONS: 1. Allopurinol 100 mg p.o. daily. 2. Aspirin 81 mg p.o. daily. 3. Vitamin D3 of 2000 units p.o. daily. 4. Vitamin B12 of 1000 mcg p.o. daily. 5. Lasix 20 mg p.o. b.i.d. 6. Magnesium oxide 400 mg p.o. daily. 7. Metoprolol succinate 100 mg p.o. daily. 8. Protonix 20 mg p.o. b.i.d. 9. Potassium chloride 20 mEq p.o. daily. 10. Zocor 20 mg p.o. at bedtime. 11. Diltiazem 180 mg p.o. daily. 12. Ferrous sulfate 325 mg p.o. t.i.d. 13. Xarelto 20 mg p.o. at bedtime, on hold. ALLERGIES: TO PENICILLIN. FAMILY HISTORY: Positive for hypertension. SOCIAL HISTORY: Resides at [facility]. Ambulates with a rolling walker with contact guard assistance. No current alcohol, tobacco, or illicit drug use. REVIEW OF SYSTEMS: CONSTITUTIONAL: Negative for weight loss or gain, ability to conduct usual activities. SKIN: Negative for rash, itching. EYES: Negative for double vision, pain. ENT/MOUTH: Negative for nose bleeding, neck stiffness, pain, tenderness. CARDIOVASCULAR: Negative for palpitations, dyspnea on exertion, orthopnea. RESPIRATORY: Negative for shortness of breath, wheezing, cough, hemoptysis, fever or night sweats. GASTROINTESTINAL: Negative for poor appetite, abdominal pain, heartburn, nausea, vomiting, constipation, or diarrhea. GENITOURINARY: Negative for urgency, frequency, dysuria, nocturia. MUSCULOSKELETAL: Negative for pain, swelling. NEUROLOGIC/PSYCHIATRIC: Negative for anxiety, depression. ALLERGY/IMMUNOLOGIC: Negative for skin rash, bleeding tendency. Otherwise negative except as stated per HPI. PHYSICAL EXAMINATION: VITAL SIGNS: On admission, blood pressure 110/54, pulse 114, respiratory rate 20, temperature 99.3 degrees Fahrenheit, and O2 saturation 95% on 2.5 L/minute by nasal cannula. GENERAL APPEARANCE: This is a 73-year-old female, alert and oriented x3, pleasant, responsive, in no acute distress. HEENT: Pupils are equal, round, and reactive to light and accommodation. Extraocular muscles are intact. No scleral icterus. No conjunctival injection. Nares patent. OP is clear. Teeth in fair repair. NECK: Supple. No cervical adenopathy. No thyromegaly. No carotid bruits. No JVD noted. CHEST: Diminished breath sounds in the bases bilaterally. Prolonged expiratory phase noted. CARDIOVASCULAR: S1 and S2 with distant heart sounds. No murmur, rub, or gallop appreciated. ABDOMEN: Obese, soft, nontender, and nondistended. Bowel sounds are positive in all 4 quadrants. There is no hepatosplenomegaly. No abdominal bruits. No rebound or guarding appreciated. EXTREMITIES: Warm and dry with fair turgor. Pitting edema to the proximal shins bilaterally. Pulses palpable distally at the dorsalis pedis, posterior tibial, and popliteal arteries bilaterally. Capillary refill less than 2 seconds. NEUROLOGIC: Cranial nerves 2 through 12 are grossly intact. No focal or lateralizing signs appreciated. PERTINENT LABORATORY AND X-RAY FINDINGS: Lab based on 05/01/2019; sodium 142, potassium 4.4, chloride 103, CO2 of 30, BUN 40, creatinine 1.18, estimated GFR 45, glucose 146, and calcium 9.1. CBC showed a white blood cell count of 5.8, hemoglobin 7.6, hematocrit 23.4, MCV 106, and platelet count 171 with 83% neutrophils. ASSESSMENT AND PLAN: 1. Acute on chronic macrocytic anemia secondary to recent acute blood loss and chronic kidney disease. The patient will be observed on the medical floor. We will initiate transfusion of 1 unit packed red blood cells. Lasix 20 mg IV after initial unit of packed red blood cells. Serial H and H monitoring. Hold anticoagulation. No current evidence to suggest acute blood loss ongoing. Repeat CBC in the a.m. 2. Chronic kidney disease stage 3. Avoid nephrotoxic agents and limit contrast exposure. Repeat creatinine in the a.m. 3. Hypertension. Resume metoprolol 100 mg p.o. daily. Serial blood pressure monitoring. 4. Chronic anticoagulation. Hold Xarelto due to concern for recent esophagitis and gastrointestinal bleeding. 5. Esophagitis. Continue Protonix 20 mg p.o. b.i.d. 6. Prophylaxis. SCDs while in bed. Protonix 20 mg p.o. b.i.d. General fall risk precautions. CODE STATUS: Full. Surrogate medical decision maker is the patient's daughter. Job ID: [id number]
[2019-05-02] MEDS: Furosemide 20 MG TAB PO SCH (20:49)
[2019-05-02] MEDS: Famotidine 20 MG TAB PO SCH (20:55)
[2019-05-02] MEDS ORDERED: FERROUS SULFATE 325 MG PO SCH (21:00)
[2019-05-02] MEDS ORDERED: Simvastatin 20 MG TAB PO SCH (21:00)
[2019-05-03 08:39] LABS: Anisocytosis MODERATE=16-30 cells (100X) (0-5/hpf); Band 4 % (5-11); Eosinophils 1 % (0-10); Hemoglobin 7.4 g/dL (12.0-16.0); Hypochromia SLIGHT = 6-15 cells (100X) (0-5/hpf); Lymphocytes 14 % (21-51); MDiff Complete? YES; Mean Corpuscular HGB CONC 31.3 g/dL (32.0-36.0); Mean Corpuscular Hemoglobin 32.7 pg (27.0-31.0); Mean Platelet Volume 8.6 fL (7.4-10.4); Monocytes 4 % (0-10); Neutrophil 77 % (42-75); Ovalocytes SLIGHT = 2-5 cells (100X) (0-1/hpf); Platelet Count 146 thou/uL (130-400); Platelet Morphology Comment Appears Adequate; Polychromasia MODERATE = 3-4 cells (100X) (0-2/hpf); RBC Distribution Width 22.4 % (11.5-14.5); Red Blood Cell (RBC) Count 2.26 mill/uL (4.20-5.40); White Blood Cell (WBC) Count 4.5 thou/uL (4.8-10.8)
[2019-05-03] MEDS: Furosemide 20 MG TAB PO SCH (09:00)
[2019-05-03] MEDS ORDERED: Aspirin Chewable 81 MG TAB PO SCH (09:00)
[2019-05-03] MEDS ORDERED: Allopurinol 100 MG TAB PO SCH (09:00)
[2019-05-03] MEDS ORDERED: Potassium Chloride 20 MEQ TAB PO SCH (09:00)
[2019-05-03] MEDS ORDERED: Magnesium Oxide 400 MG TAB PO SCH (09:00)
[2019-05-03] MEDS ORDERED: FLU VACC TS2019-20(65YR UP)/PF 180 MCG/0.5 ML SYRINGE IM ONE (09:00)
[2019-05-03] MEDS ORDERED: Cyanocobalamin (Vitamin B-12) 1,000 MCG TAB PO SCH (09:00)
[2019-05-03] MEDS ORDERED: Ferrous Sulfate 325 MG TAB PO SCH ×4 (09:00→21:00)
[2019-05-03] MEDS: Famotidine 20 MG TAB PO SCH (09:01)
[2019-05-03] MEDS: Furosemide 20 MG/2 ML VIAL SLOW IVP SCH ×2 (16:18→16:55)
[2019-05-03 16:43] VITALS: BP 106/62; TEMP 99.1
--- NOTE | 2019-05-04 01:53 | DIS ---
DATE OF ADMISSION: 05/02/2019 DATE OF DISCHARGE: 05/03/2019 DISCHARGE DIAGNOSES: 1. Acute on chronic macrocytic anemia secondary to recent acute blood loss secondary to esophagitis and chronic kidney disease. 2. Esophagitis exacerbated with Xarelto. 3. Chronic kidney disease stage 3. 4. Hypertension. 5. Chronic anticoagulation with Xarelto. 6. Acute hypoxic respiratory failure on 2 L/minute by nasal cannula. CONSULTATIONS: None. PERTINENT LABORATORY AND X-RAY FINDINGS: Hemoglobin ranged between 7.4 to 7.6. Creatinine 1.18. HOSPITAL COURSE: The patient was observed on the medical floor after initially presenting with low hemoglobin in the context of chronic anemia with recent diagnosis of esophagitis with upper GI bleed status post 4 units of packed red blood cells during a 9-day hospital stay in April 2019. The patient presented with hemoglobin in the 7 range, transfused 2 units of packed red blood cells during this hospital course. No active blood loss was identified and likely multifactorial anemia including recent esophagitis, chronic kidney disease, and history of Xarelto use. The patient received 2 units of packed red blood cells with overall stable vital signs. No current evidence of acute blood loss identified as stated previously. Current recommendations are to continue proton pump inhibitor with serial hemoglobin monitoring on an outpatient basis. The patient will also hold her home Xarelto for approximately 5 days after discharge. I have examined the patient at the time of discharge and discussed followup instructions. The patient verbalized understanding and agreement and ready for discharge on 05/03/2019. DISCHARGE MEDICATIONS: 1. Allopurinol 100 mg p.o. daily. 2. Enteric-coated aspirin 81 mg p.o. daily. 3. Vitamin D3 of 2000 units p.o. daily. 4. Vitamin B12 of 1000 mcg p.o. daily. 5. Lasix 20 mg p.o. b.i.d. 6. Magnesium oxide 400 mg p.o. daily. 7. Metoprolol succinate 100 mg p.o. daily. 8. Protonix 20 mg p.o. b.i.d. 9. Potassium chloride 20 mEq p.o. daily. 10. Zocor 20 mg p.o. at bedtime. 11. Diltiazem CD 180 mg p.o. daily. 12. Ferrous sulfate 325 mg p.o. t.i.d. 13. Xarelto 20 mg p.o. at bedtime, hold until 05/08/2019 or first followup with Cardiology Service. FOLLOWUP: The patient may follow up with her primary care provider, Dr. Lanny Ballard within 7 days of discharge. The patient will follow up with Dr. Marley Valderrama and to call her office for appointment time and date. CONDITION ON DISCHARGE: Fair. ACTIVITY: Ad jim, rolling walker for ambulation with standby assistance. DIET: Regular. CODE STATUS: Full. DISPOSITION: Discharged to [facility] on 05/03/2019. Job ID: [id number]
[2019-05-05] MEDS ORDERED: Ferrous Sulfate 325 MG TAB PO SCH (09:00)
== END 2019-05-03 20:10 | disposition home or self-care (01) ==
LOC: 3SE 08:05 → T4-A 14:18
PROVIDERS: ADMIT Family Medicine; ATTEND Family Medicine
DX: D53.9 Nutritional anemia, unspecified (principal); K20.9 Esophagitis, unspecified; I12.9 Hypertensive chronic kidney disease with stage 1 through stage 4 chronic kidney disease, or unspecified chronic kidney disease; N18.3 Chronic kidney disease, stage 3 (moderate); J96.01 Acute respiratory failure with hypoxia; C78.7 Secondary malignant neoplasm of liver and intrahepatic bile duct; I48.92 Unspecified atrial flutter; Z79.01 Long term (current) use of anticoagulants; Z79.82 Long term (current) use of aspirin; Z79.899 Other long term (current) drug therapy; Z88.0 Allergy status to penicillin
CPT/HCPCS: 36430 ×2; 85007; 85027; 86850; 86870; 86900; 86901; 86902; 86920; 86922; G0378 ×2; P9016 ×2; 36415; J1940; Q0163

== ENCOUNTER → 2019-06-05 | Day surgery (SDC) | payer MEDICARE, BC ==
[2019-06-02 09:43] VITALS: BMI 44.9
[~2019-06-05] MED LIST: Albuterol Sulfate 2.5 mg/3 ml Neb ONE; DOPamine 400 MG/D5W 250 ML 250 ML ONE; Dexamethasone 20 MG/5 ML VIAL ONE; Fentanyl 100 MCG/2 ML VIAL ONE; Heparin 10,000 UNITS/1 ML VIAL ONE; Lidocaine 1% PF 5 ML VIAL ONE; Ondansetron PF 4 MG/2 ML Vial ONE; PHENYLEPHRINE-NS 100 MCG/ML 10 ML SYRINGE ONE; PROPOFOL 200 MG/20 ML VIAL ONE; Succinylcholine Chloride 20 MG/ML 10 ml SYRINGE FS ONE
[2019-06-05 07:54] LABS: #Eosinphils 0.1 thou/uL (0.0-0.7); #Lymphocytes 0.5 thou/uL (1.20-3.40); #Monocytes 0.6 thou/uL (0.11-0.59); #Neutrophils 3.7 thou/uL (1.40-6.50); %Basophils 0.3 % (0.0-1.0); %Eosinophils 1.1 % (0.0-10.0); %Lymphocytes 9.6 % (21.0-51.0); %Monocytes 12.2 % (0.0-10.0); %Neutrophils 76.8 % (42.0-75.0); Hemoglobin 10.6 g/dL (12.0-16.0); Mean Corpuscular HGB CONC 31.5 g/dL (32.0-36.0); Mean Corpuscular Hemoglobin 31.1 pg (27.0-31.0); Mean Corpuscular Volume 98.6 fL (78.0-98.0); Mean Platelet Volume 8.3 fL (7.4-10.4); Platelet Count 138 thou/uL (130-400); RBC Distribution Width 18.5 % (11.5-14.5); Red Blood Cell (RBC) Count 3.41 mill/uL (4.20-5.40); White Blood Cell (WBC) Count 4.9 thou/uL (4.8-10.8)
[2019-06-05 08:03] LABS: PTT 24.1 SEC (22.9-36.1); Prothrombin Time 12.8 SEC (12.0-14.7)
[2019-06-05 08:14] LABS: BUN (Urea Nitrogen) 30 mg/dL (9.8-20.1); Calc. Creatinine Clearance 72 mL/min (70-130); Calcium 9.5 mg/dL (7.8-10.44); Estimated GFR-MDRD 40; Glucose 121 mg/dL (83-110)
[2019-06-05 08:23] LABS: Anion Gap 19 mmol/L (10-20); Carbon Dioxide 35 mmol/L (23-31); Chloride 92 mmol/L (98-107); Potassium 3.5 mmol/L (3.5-5.1); Sodium 142 mmol/L (136-145)
--- NOTE | 2019-06-05 13:14 | OP ---
DATE OF PROCEDURE: 06/05/2019 ADDITIONAL REFERRING PHYSICIAN: Jessie Naranjo MD PROCEDURE PERFORMED: Electrophysiology study and radiofrequency ablation. REASON FOR PROCEDURE: Ms. Mejía is a 73-year-old woman with history of typical atrial flutter, prior CTI ablation, left bundle-branch block. LVEF initially 30 %, then improved to 40% to 45% in November 2018. She has recurrent atypical atrial flutter, and she cannot be anticoagulated due to recent bleed. She also has episodic atrial fibrillation with RVR and suboptimal BiV pacing, worsening heart failure like symptoms. She is requiring multiple AV mando suppressing agents and she is here for AV mando ablation. DESCRIPTION OF PROCEDURE: The patient received general anesthesia by Anesthesia specialist. After his level of sedation achieved, the right femoral venous area was prepped and draped and anesthetized using subcutaneous lidocaine and under ultrasound guidance, the right femoral vein was cannulated. An 8-Zambian short sheath was introduced through which a ThermoCool catheter was advanced to the right atrium. The His bundle was located and radiofrequency ablations were delivered at the AV mando area and also at the His bundle area, total of 7 lesions were placed along with 1 minute in duration at 40 gordon. During the ablation, AV mando conduction stopped and ventricular pacing ensued. No junctional escape rhythm is seen. IV dopamine was administered during which AV block persisted. No reconnection was noted. The pacemaker function was checked before and after ablation and found to be adequate. The patient was programed to pace rate of 70 beats per minute and sheaths were pulled in the pharmacy laboratory technician. No complications noted. CONCLUSION: 1. Successful AV mando ablation. 2. Adequate functioning of BiV pacemaker. PLAN: Continue to monitor for recurrent arrhythmias and minimize AV mando blocking agents. Job ID: [id number] [facility]
== END ==
LOC: SDC 07:01
PROVIDERS: ATTEND Internal Medicine Cardiovascular Disease
PROC: 02583ZZ Destruction of Conduction Mechanism, Percutaneous Approach (ICD-10-PCS; principal; 2019-06-05)
PROC: 4A023FZ Measurement of Cardiac Rhythm, Percutaneous Approach (ICD-10-PCS; 2019-06-05)
DX: I48.0 Paroxysmal atrial fibrillation (principal); I48.4 Atypical atrial flutter; I44.7 Left bundle-branch block, unspecified; I13.0 Hypertensive heart and chronic kidney disease with heart failure and stage 1 through stage 4 chronic kidney disease, or unspecified chronic kidney disease; N18.9 Chronic kidney disease, unspecified; I50.9 Heart failure, unspecified; E78.5 Hyperlipidemia, unspecified; C22.0 Liver cell carcinoma; D62 Acute posthemorrhagic anemia; I95.2 Hypotension due to drugs; Z87.891 Personal history of nicotine dependence; Z79.899 Other long term (current) drug therapy; Z88.0 Allergy status to penicillin; Z95.0 Presence of cardiac pacemaker; Z95.2 Presence of prosthetic heart valve
CPT/HCPCS: 76942; 80048; 85025; 85610; 85730; 93005 ×2; 93623; 93650; C1769; C2630; 36415; 93010; J1100; J1265; J1644; J2001; J2405; J2704; J3010; J7611

== ENCOUNTER 2019-11-29 09:07 | Outpatient (CLI) | payer MEDICARE, BC, OTHER ==
[2019-11-29 11:11] LABS: #Eosinphils 0.1 thou/uL (0.0-0.7); #Lymphocytes 0.3 thou/uL (1.20-3.40); #Monocytes 0.4 thou/uL (0.11-0.59); #Neutrophils 4.3 thou/uL (1.40-6.50); %Basophils 0.5 % (0.0-1.0); %Eosinophils 1.1 % (0.0-10.0); %Lymphocytes 5.9 % (21.0-51.0); %Monocytes 8.5 % (0.0-10.0); Hemoglobin 10.7 g/dL (12.0-16.0); Mean Corpuscular HGB CONC 31.3 g/dL (32.0-36.0); Mean Corpuscular Hemoglobin 32.3 pg (27.0-31.0); Mean Platelet Volume 8.5 fL (7.4-10.4); Platelet Count 179 thou/uL (130-400); RBC Distribution Width 15.5 % (11.5-14.5); Red Blood Cell (RBC) Count 3.31 mill/uL (4.20-5.40); White Blood Cell (WBC) Count 5.2 thou/uL (4.8-10.8)
[2019-11-29 11:25] LABS: Anion Gap 16 mmol/L (10-20); BUN (Urea Nitrogen) 27 mg/dL (9.8-20.1); Calc. Creatinine Clearance 0 mL/min (70-130); Calcium 8.8 mg/dL (7.8-10.44); Carbon Dioxide 24 mmol/L (23-31); Chloride 104 mmol/L (98-107); Estimated GFR-MDRD 52; Glucose 108 mg/dL (83-110); Potassium 5.1 mmol/L (3.5-5.1); Sodium 139 mmol/L (136-145)
[2019-11-30 12:22] LABS: SARS-CoV-2 MS2 Positive; SARS-CoV-2 N Gene Negative; SARS-CoV-2 S Gene Negative; SARS-CoV-2 by NAA Not Detected (NotDetected); SARS-CoV-2 orf1ab Negative
== END 2019-11-29 09:08 | disposition home or self-care (01) ==
LOC: LABBT 09:07
PROVIDERS: ATTEND Surgery
DX: Z01.812 Encounter for preprocedural laboratory examination (principal); Z20.828 Contact with and (suspected) exposure to other viral communicable diseases; C22.0 Liver cell carcinoma
CPT/HCPCS: 80048; 85025; U0003; 87635

== ENCOUNTER 2019-12-04 10:45 | Day surgery (SDC) | payer MEDICARE, BC ==
[2019-11-30 09:59] VITALS: BMI 39.4
[2019-12-04] MEDS ORDERED: PROPOFOL 200 MG/20 ML VIAL ONE (11:03)
[2019-12-04] MEDS ORDERED: Metoclopramide HCl 10 MG/2 ML VIAL ONE (11:03)
[2019-12-04] MEDS ORDERED: PHENYLEPHRINE-NS 100 MCG/ML 10 ML SYRINGE ONE (11:03)
[2019-12-04] MEDS ORDERED: EPHEDRINE 25 MG/5 ML SYRINGE ONE (11:03)
[2019-12-04] MEDS ORDERED: Ondansetron PF 4 MG/2 ML Vial ONE (11:03)
[2019-12-04] MEDS ORDERED: Lidocaine 1% PF 5 ML VIAL ONE (11:03)
[2019-12-04] MEDS ORDERED: Levofloxacin 500 mg/D5W 100 ml Premix Bag ONE (13:06)
[2019-12-04] MEDS ORDERED: Bupivacaine/Epinephrine 0.25% 30 ML VIAL ONE (13:15)
[2019-12-04] MEDS ORDERED: Lidocaine 2% PF 5 ML VIAL ONE (13:15)
[2019-12-04] MEDS ORDERED: PROPOFOL 60 ML ONE (13:20)
[2019-12-04] MEDS ORDERED: Fentanyl 100 MCG/2 ML VIAL ONE (13:20)
[2019-12-04] MEDS ORDERED: Midazolam HCl 2 mg/2 ml Vial ONE (13:20)
--- NOTE | 2019-12-04 15:10 | RAD ---
XR Chest 1 View HISTORY: Mediport placement COMPARISON: 04/17/2019 FINDINGS: There is interval placement of a right internal jugular Port-A-Cath with tip in the project ion of the SVC. No pneumothoraces are seen. Changes of median sternotomy, cardiomegaly, left-sided pacemaker device and aortic valvular stent are again seen. There is mild vascular congestion. Small pleural effusions may be present.
--- NOTE | 2019-12-04 22:31 | OP ---
DATE OF PROCEDURE: 12/04/2019 PREOPERATIVE DIAGNOSIS: Hepatocellular carcinoma. POSTOPERATIVE DIAGNOSIS: Hepatocellular carcinoma. PROCEDURE PERFORMED: Tunneled central line with subcutaneous port (MediPort, CT injectable). ANESTHESIA: General. COMPLICATIONS: None. SPECIMEN: None. FINDINGS: Tip of the catheter at the atriocaval junction. TECHNIQUE: The patient was taken to the operating room and laid supine on the operating room table. After general anesthetic was obtained, the neck and chest were bilaterally shaved, prepped and draped in a sterile fashion. Local anesthetic infiltrated over the right internal jugular vein. Internal jugular vein was cannulated using a 22-gauge Finder needle followed by a Seldinger. Wire was passed into the superior vena cava under fluoro guidance. A tasha was made at the wire entrance site. A separate 3 cm incision was made in the right upper chest. Subcutaneous pocket was made below the lower incision. Tubing for the MediPort tunneled from the inferior to superior incision. An introducer sheath was placed over the wire into the superior vena cava under fluoro guidance. The dilator and wire were removed. The end of the catheter threaded into the sheath. The sheath was peeled away. The tip of the catheter was at the atriocaval junction. MediPort tubing was cut to fit the MediPort at the lower incision, connected to the MediPort. The MediPort sewn to the chest wall in a subcutaneous pocket using Prolene. The wounds were irrigated. Local anesthetic was applied. The MediPort was flushed and shruthi blood without difficulties, flushed with a heparin flush. The wounds were closed using 3-0 Vicryl, 4-0 Monocryl and Dermabond. The patient was sent to Recovery in stable condition. All instrument counts, needle counts, lap counts were correct. Job ID: [id number]
== END 2019-12-04 16:00 | disposition home or self-care (01) ==
LOC: SDC 10:45
PROVIDERS: ATTEND Surgery
PROC: 02HV33Z Insertion of Infusion Device into Superior Vena Cava, Percutaneous Approach (ICD-10-PCS; principal; 2019-12-04)
DX: C22.0 Liver cell carcinoma (principal); I11.0 Hypertensive heart disease with heart failure; I50.9 Heart failure, unspecified; E11.9 Type 2 diabetes mellitus without complications; I48.91 Unspecified atrial fibrillation; Z79.899 Other long term (current) drug therapy; Z87.891 Personal history of nicotine dependence; Z88.0 Allergy status to penicillin; Z88.2 Allergy status to sulfonamides; Z88.8 Allergy status to other drugs, medicaments and biological substances; Z95.0 Presence of cardiac pacemaker
CPT/HCPCS: 71045; 76000; C1788; J1642; J1956; J2001; J2250; J2405; J2704; J2765; J3010

== ENCOUNTER → 2019-12-19 | Day surgery (SDC) | payer MEDICARE, BC | LOC: SDC/OP 15:54 → ONC/OP 16:16 | PROVIDERS: ATTEND Internal Medicine | PROC: 30233N1 Transfusion of Nonautologous Red Blood Cells into Peripheral Vein, Percutaneous Approach (ICD-10-PCS; principal; 2019-12-19) | DX: D64.9 Anemia, unspecified (principal); D69.6 Thrombocytopenia, unspecified | CPT/HCPCS: 80053; 82248; 83615; 84100; 84436; 84443; 84550 ==

== ENCOUNTER 2019-12-20 09:24 | Inpatient (IN) | payer MEDICARE, BC ==
[2019-12-20 11:00] VITALS: BMI 41.5
[2019-12-20 11:04] LABS: #Lymphocytes 0.6 thou/uL (1.20-3.40); #Monocytes 0.6 thou/uL (0.11-0.59); #Neutrophils 3.9 thou/uL (1.40-6.50); %Basophils 0.2 % (0.0-1.0); %Eosinophils 0.8 % (0.0-10.0); %Monocytes 11.3 % (0.0-10.0); %Neutrophils 75.7 % (42.0-75.0); Hemoglobin 6.8 g/dL (12.0-16.0); Mean Corpuscular HGB CONC 32.7 g/dL (32.0-36.0); Mean Corpuscular Hemoglobin 33.2 pg (27.0-31.0); Mean Platelet Volume 7.9 fL (7.4-10.4); Platelet Count 180 thou/uL (130-400); Red Blood Cell (RBC) Count 2.05 mill/uL (4.20-5.40); White Blood Cell (WBC) Count 5.1 thou/uL (4.8-10.8)
[2019-12-20 11:26] LABS: ALT (SGPT) 14 U/L (8-55); AST (SGOT) 30 U/L (5-34); Albumin 3.5 g/dL (3.4-4.8); Alkaline Phosphatase 145 U/L (40-110); Anion Gap 15 mmol/L (10-20); BUN (Urea Nitrogen) 54 mg/dL (9.8-20.1); Bilirubin, Total 0.7 mg/dL (0.2-1.2); Calc. Creatinine Clearance 22 mL/min (70-130); Calcium 8.8 mg/dL (7.8-10.44); Carbon Dioxide 26 mmol/L (23-31); Chloride 102 mmol/L (98-107); Estimated GFR-MDRD 12; Globulin 2.4 g/dL (2.4-3.5); Glucose 137 mg/dL (83-110); Potassium 6.2 mmol/L (3.5-5.1); Protein, Total 5.9 g/dL (6.0-8.3); Sodium 137 mmol/L (136-145)
[2019-12-20] MEDS ORDERED: Guaifenesin DM 100-10/5 ML UDCUP PO PRN (12:32)
[2019-12-20] MEDS ORDERED: Ondansetron PF 4 MG/2 ML Vial IVP PRN (12:32)
[2019-12-20] MEDS ORDERED: Acetaminophen 325 MG TAB PO PRN (12:32)
[2019-12-20] MEDS ORDERED: Morphine 2 MG/ML VIAL SLOW IVP PRN (12:56)
[2019-12-20] MEDS ORDERED: traMADol HCl 50 MG TAB PO PRN ×2 (12:56→14:30)
[2019-12-20 13:31] LABS: INR-International Normal Ratio 1.1; PTT 24.5 sec (22.9-36.1); Prothrombin Time 14.3 sec (12.0-14.7)
--- NOTE | 2019-12-20 13:32 | HP ---
REASON FOR ADMISSION: Severe anemia, hyperkalemia, acute kidney injury, anasarca. HISTORY OF PRESENTING ILLNESS: The patient was sent over from Dr. Valderrama's office for a hemoglobin of 6.8 and potassium of 6.2 and creatinine of 3.7. Ms. Mejía has known history of hepatocellular carcinoma and has had an MRI done at [facility] on Wednesday. She was not given contrast as her lab showed elevated creatinine on Wednesday. She went to see her primary oncologist here locally Dr. Valderrama this morning as she was due for her Opdivo treatment from today. She gets Opdivo every 2 weeks. In view of severe anemia and acute kidney injury, she was transferred here for hospitalization. Has no complaints of joey bleeding per rectum. The patient states she has black stools, she takes iron pills. No complaints of nausea or epigastric pain as such. The patient states she has had history of peptic ulcer disease and was seen by Dr. Bayron Tai sometime in April and has had upper endoscopy done. Last colonoscopy was in 2012 and it was normal as far as she knows. PAST MEDICAL AND SURGICAL HISTORY: History of hepatocellular carcinoma localized to liver with prior chemoembolization done in 2016. She has had prior history of GI bleed secondary to Lenvima. The patient also has had prior history of external radiation done at [facility] in October of 2018. History of mitral valve replacement in 2008 and 2016, porcine valve in 2008 and bovine valve in 2016. History of CHF, pacemaker placement on home oxygen, obesity, history of shingles, dyslipidemia, hypertension, CKD, hysterectomy. History of atrial flutter with ablation and chronic left bundle-branch block, prior history of atrial fibrillation with RVR. CURRENT MEDICATIONS: The patient is on, 1. Vitamin B12 1000 mcg p.o. daily. 2. Carvedilol 6.25 mg twice daily. 3. Ferrous sulfate 325 mg p.o. daily. 4. Lasix 20 mg daily p.r.n. 5. Magnesium oxide 400 mg p.o. daily. 6. Potassium chloride 20 mEq p.o. daily. 7. Protonix 20 mg daily. 8. Vitamin D3 2000 units p.o. daily. 9. Xarelto 20 mg p.o. q.p.m. 10. Lisinopril 5 mg p.o. q.a.m. 11. Zocor 20 mg p.o. at bedtime. 12. Zofran p.r.n. 13. Allopurinol 100 mg p.o. daily. ALLERGIES: ALLERGIC TO PENICILLIN. PERSONAL HISTORY: Does not abuse alcohol or drugs. Quit smoking more than 15 years ago. FAMILY HISTORY: Mother had history of leukemia, in her 80s. Father of motor vehicle accident at a young age, she was a teenager. CODE STATUS: Full. Power of bankruptcy attorney is her daughter, Ms. Newsome. REVIEW OF SYSTEMS: CONSTITUTIONAL: Negative for weight loss or gain, ability to conduct usual activities. SKIN: Negative for rash, itching. EYES: Negative for double vision, pain. ENT/MOUTH: Negative for nose bleeding, neck stiffness, pain, tenderness. CARDIOVASCULAR: Negative for palpitations, dyspnea on exertion, orthopnea. RESPIRATORY: Negative for shortness of breath, wheezing, cough, hemoptysis, fever or night sweats. GASTROINTESTINAL: Negative for poor appetite, abdominal pain, heartburn, nausea, vomiting, constipation, or diarrhea. GENITOURINARY: Negative for urgency, frequency, dysuria, nocturia. MUSCULOSKELETAL: Negative for pain, swelling. NEUROLOGIC/PSYCHIATRIC: Negative for anxiety, depression. ALLERGY/IMMUNOLOGIC: Negative for skin rash, bleeding tendency. PHYSICAL EXAMINATION: GENERAL: The patient is a 74-year-old female, who is currently not in any acute distress. VITAL SIGNS: Blood pressure 118/56, pulse 70 per minute, respiratory rate 16 per minute, temperature 98.2 degrees Fahrenheit, and saturating 100% on 2 L nasal cannula. NECK: Supple. No elevated JVD. HEENT: Eyes; extraocular muscles intact. Pupils reacting to light. Oral cavity, mucous membranes are dry. No exudates or congestion. CARDIOVASCULAR: S1 and S2 heard. Regular rhythm. RESPIRATORY: Air entry 1+ bilateral, basal rales plus. ABDOMEN: Distended. Has abdominal wall edema in the lower quadrants. Bowel sounds are heard. No rigidity or guarding. EXTREMITIES: There is 1 to 2+ peripheral edema. No calf tenderness. VASCULAR: Peripheral pulses 1+ bilateral. No ischemic ulcerations or gangrene. CENTRAL NERVOUS SYSTEM: No gross focal motor deficits noted. The patient is alert, awake, and oriented well. PSYCHIATRIC: The patient's mood is euthymic. No hallucinations or delusions. LABORATORY DATA: White count of 5, H and H 6.8 and 20.8, platelet count 180, MCV is 101 with 75% neutrophils. Potassium is 6.2, serum bicarb is 26, BUN 54, creatinine 3.7, serum glucose 137, uric acid was 10. AST and ALT within normal limits. Direct bilirubin 0.4, total bilirubin 0.7, alkaline phosphatase 145, albumin is 3.5, total protein 5.9. AFP tumor marker in October of 2019 was 17,763. TSH 2.81. CLINICAL IMPRESSION AND PLAN: The patient will be admitted to telemetry for severe anemia, acute kidney injury, anasarca. The patient has multiple medical issues including hepatocellular carcinoma, on Opdivo. Dr. Valderrama has ordered 2 units of packed cell transfusion. We will obtain an H and H around 9:00 p.m. when the transfusions are complete. She also has acute kidney injury with volume overload. I have consulted Dr. Will, her label maker. We will obtain GI consultation with Dr. Zaire Verma, her primary ob gyn. She will be kept on full liquid diet for now. Protonix 40 mg IV q.12 hourly. For hyperkalemia, we will give her Kayexalate 30 g q.6 hourly x2 doses. We will continue her Lipitor, Coreg, allopurinol, vitamin B12 as before. She will be on morphine p.r.n. for pain. The patient's overall prognosis is guarded with multiple medical issues. Job ID: [id number] [facility]
[2019-12-20 14:50] LABS: Creatinine, Urine 262.34 mg/dL (47-110)
[2019-12-20 14:51] LABS: Bacteria/HPF None Seen HPF (None Seen); Bilirubin Negative (Negative); Blood, Urine Negative (Negative); Clarity Turbid (Clear); Glucose, Urine (Dipstick) Normal (Negative); Ketone, Urine Negative (Negative); Leukocyte Negative Leu/uL (Negative); Nitrite Negative (Negative); Protein, Urine (Dipstick) 30 mg/dL (Neg-Trace); RBC/HPF 0-3 HPF (0-3); Specific Gravity, Urine 1.021 (1.002-1.036); Squamous Epithelial 0-3 HPF (0-3); WBC/HPF 0-3 HPF (0-3)
--- NOTE | 2019-12-20 14:54 | ULT ---
Bilateral renal ultrasound CLINICAL INDICATION: Acute renal failure. COMPARISON: None. FINDINGS: The kidneys are small in size bilaterally and demonstrate an echogenic appearance with renal cortical thinning suggesting chronic medical renal disease. No hydronephrosis or renal mass is appreciated. Renal calculi would be difficult to evaluate given echogenic appearance of each kidney. The right hasmukh gormany measures 9 cm x 4.9 cm with the left kidney measuring 9.1 cm x 5.3 cm. Urinary bladder: Nondistended with Montemayor catheter in place. Urinary bladder is unable to be evaluated . Intraperitoneal free fluid is seen primarily in the right upper quadrant adjacent to the liver. IMPRESSION: 1. Echogenic bilateral kidneys with renal cortical thinning and small size of each kidney. Findings a re suggestive of chronic medical renal disease. 2. No evidence of hydronephrosis. 3. Urinary bladder is decompressed. 4. Ascites partially imaged in right upper quadrant.
--- NOTE | 2019-12-20 17:29 | CON ---
DATE OF CONSULTATION: 12/20/2019 REASON FOR CONSULTATION: Hepatocellular carcinoma. HISTORY OF PRESENT ILLNESS: Ms. Mejía is a 74-year-old female with hepatocellular carcinoma localized to the liver, who presented to our clinic yesterday for followup, was mildly hypotensive and found to have a hemoglobin of 6.1. She had some changes in her bowel movements, lately being more frequent and black in color. She is taking oral iron. She was having occasional nausea. She was sent for a blood transfusion yesterday afternoon, but has antibodies in her blood, so it was unavailable. She was sent home. Once home, her chemistries returned in our clinic, which noted a creatinine of 3.22 with a GFR 14, a potassium of 6.1. Attempts were made last night to admit her, but she wished to wait till this morning. She was instructed to go to the emergency room for any issues whatsoever. This a.m., she was basically stable and admitted to telemetry unit for further workup and treatment. Her hemoglobin today is 6.8. Creatinine is 3.75. She was seen at bedside and denies any complaints. She is taking p.o. Dr. Will is her meeting planner and has been consulted. PAST MEDICAL HISTORY: 1. Hepatocellular carcinoma diagnosed in 2017. 2. Congestive heart failure. 3. Rheumatic fever. 4. History of shingles. 5. Type-2 diabetes. 6. High cholesterol. 7. Hypertension. 8. Chronic kidney disease. PAST SURGICAL HISTORY: 1. Mitral valve replacement. 2. Hysterectomy. 3. External beam radiation. ALLERGIES: PENICILLIN. HOME MEDICATIONS: 1. Allopurinol. 2. Magnesium oxide. 3. D3. 4. Furosemide. 5. Ferrous sulfate. 6. Potassium gluconate. 7. Simvastatin. 8. Xarelto. 9. Pantoprazole. 10. Carvedilol. 11. Lisinopril. 12. Zofran. FAMILY HISTORY: Mother had leukemia. SOCIAL HISTORY: , has one child. Lives with her daughter. No alcohol, tobacco, or illicit drug use. REVIEW OF SYSTEMS: Positive for BLE swelling, shortness of breath. Otherwise, negative. PHYSICAL EXAMINATION: VITAL SIGNS: Temperature is 98.2, pulse is 71, respiratory rate 16, BP is 111/51, she is 100% on 2 L. GENERAL: A well-developed, well-nourished female, in no acute distress. HEENT: Normocephalic, atraumatic. Pupils are equal and reactive to light. NECK: Supple. CV: Irregular rate and rhythm. LUNGS: Clear anterior. ABDOMEN: Obese. Bowel sounds are positive. EXTREMITIES: She has 1+ bilateral lower extremity edema. SKIN: No rash. HEMATOLOGIC: No petechiae or purpura. NEUROLOGICAL: Nonfocal. PERTINENT LABORATORY DATA AND X-RAYS: Current WBCs are 5.1, hemoglobin 6.8, hematocrit 20.8, platelet count is 180,000, 75% neutrophils, 12% lymphs. PT is 14.3, INR is 1.1, and PTT is 24.5. Sodium 137, potassium 6.2, chloride 102, CO2 is 26, BUN is 54, creatinine 3.75, calcium 8.8, bilirubin 0.7, AST is 30, ALT is 14, alkaline phosphatase is 145, serum total protein is 5.9, albumin 3.5, globulin 2.4. Urine is negative for bacteria. ASSESSMENT: 1. Hepatocellular carcinoma. 2. Aiwse-oo-mndaobx kidney injury. 3. Symptomatic anemia. 4. Hyperkalemia. DISCUSSION: The patient has been admitted for blood transfusion and kidney dysfunction. She does have recurrent symptomatic anemia, which could be caused by Lenvima and possibly a GI bleed. She is on Xarelto for pacemaker and valve replacement. This is being held. Dr. Will has been consulted for her elevated creatinine. The patient has been on Opdivo, which will be discontinued, unclear if her kidney dysfunction is immune mediated. There is no evidence of hemolysis. We will provide supportive care. Thank you for the consult. Job ID: [id number] [facility]
[2019-12-20] MEDS: Sodium Chloride 0.9% 1,000 ML IV SCH (17:40)
--- NOTE | 2019-12-20 20:18 | CON ---
DATE OF CONSULTATION: 12/20/2019 REASON FOR CONSULTATION: Acute on chronic anemia. HISTORY OF PRESENT ILLNESS: Ms. Mejía is a 74-year-old female, who has hepatocellular carcinoma and has been undergoing OptiVol treatment and has been followed here locally by Dr. Valderrama and he is in [facility]. She was admitted to the hospital after outpatient labs showed a hemoglobin of 6.8, and also evidence of renal failure with a creatinine of 3.7 and potassium 6.2. Her baseline hemoglobin has been between 9 to 10. Clinically, she has not noted any signs of GI bleeding such as melena, hematochezia, or rectal bleeding. She denies having any localizing abdominal pain and discomfort. She denies having nausea or vomiting. She does report having dyspnea with walking and some lightheadedness. Earlier this year, she had evidence of GI bleeding with melena and upper endoscopy performed in 04/2019 showed erosive esophagitis with area of mild oozing. The last colonoscopy was in 2012. PAST MEDICAL HISTORY: 1. Hepatocellular carcinoma, currently on chemotherapy with prior chemoembolization. 2. History of mitral valve replacement. 3. History of CHF. 4. Status post pacemaker placement. 5. Hypertension. 6. Chronic kidney disease. 7. Status post hysterectomy. 8. History of atrial flutter/atrial fibrillation on chronic anticoagulation. MEDICATIONS AT HOME: Include; 1. Xarelto. 2. Lisinopril. 3. Pantoprazole. 4. Magnesium oxide. 5. Iron sulfate. 6. Coreg. 7. Zocor. 8. Allopurinol. 9. Zofran as needed. ALLERGIES: PENICILLIN. SOCIAL HISTORY: The patient has no tobacco or alcohol usage. FAMILY HISTORY: Negative for any known GI problem, liver disease, or GI malignancy. REVIEW OF SYSTEMS: Ten-point review of systems did not show any other pertinent positives or negatives or any other symptoms not mentioned above. PHYSICAL EXAMINATION: VITAL SIGNS: Temperature is 98.2, blood pressure 111/51, and pulse of 71. GENERAL: She is alert and conversant without distress. HEENT: Shows anicteric sclerae. Oropharynx is clear and moist. CV: Shows normal S1 and S2. Regular rate and rhythm. CHEST: Shows a breath sounds. ABDOMEN: Mildly protuberant, but soft and nontender. No distention. No tympany. EXTREMITIES: No edema. LABORATORY DATA: Sodium 137, potassium 6.2, chloride 102, CO2 of 26, creatinine 3.75, and BUN of 54. LFTs are normal. Alkaline phosphatase 145. INR 1.1. WBCs 5.1, hemoglobin 6.8, platelet count of 180, and MCV 101. ASSESSMENT: 1. Acute on chronic anemia with macrocytic index. No signs of overt bleeding. Her anemia could be multifactorial ranging from chronic disease in addition to chronic kidney disease, nutrition, chemotherapy, and possible gastrointestinal blood loss. However, at this point is no signs of any overt or acute gastrointestinal bleeding. 2. Acute on chronic kidney failure. 3. Liver cancer, status post previous chemoembolization, now on OptiVol treatment. 4. Other medical problems, stable. RECOMMENDATION: 1. No indication for any interventional endoscopy at the present time as there are no signs of bleeding. 2. Continue to trend blood count after transfusion. 3. If her blood count is stable and without signs of bleeding, can resume Xarelto. 4. We will follow. Job ID: [id number]
[2019-12-20] MEDS: Atorvastatin Calcium 10 MG TAB PO SCH (20:42)
[2019-12-20] MEDS: Pantoprazole 40 MG VIAL IVP SCH (20:42)
[2019-12-20] MEDS: Carvedilol 6.25 MG TAB PO SCH (20:43)
[2019-12-21 00:08] LABS: Hemoglobin 8.5 g/dL (12.0-16.0)
[2019-12-21] MEDS: Sodium Chloride 0.9% 1,000 ML IV SCH ×3 (01:22→15:36)
[2019-12-21 04:34] LABS: Albumin 3.2 g/dL (3.4-4.8); Anion Gap 15 mmol/L (10-20); BUN (Urea Nitrogen) 50 mg/dL (9.8-20.1); BUN/Creatinine Ratio 17.36; Calc. Creatinine Clearance 29 mL/min (70-130); Calcium 8.1 mg/dL (7.8-10.44); Carbon Dioxide 24 mmol/L (23-31); Chloride 106 mmol/L (98-107); Estimated GFR-MDRD 16; Glucose 120 mg/dL (83-110); Phosphorus 4.7 mg/dL (2.3-4.7); Potassium 5.1 mmol/L (3.5-5.1); Sodium 140 mmol/L (136-145); Uric Acid 10.2 mg/dL (2.6-6.0)
[2019-12-21 04:44] LABS: Band 6 % (5-11); Eosinophils 4 % (0-10); Hemoglobin 8.3 g/dL (12.0-16.0); Lymphocytes 21 % (21-51); MDiff Complete? YES; Mean Corpuscular HGB CONC 33.5 g/dL (32.0-36.0); Mean Corpuscular Hemoglobin 33.3 pg (27.0-31.0); Mean Corpuscular Volume 99.6 fL (78.0-98.0); Mean Platelet Volume 8.5 fL (7.4-10.4); Monocytes 6 % (0-10); Neutrophil 63 % (42-75); Platelet Count 175 thou/uL (130-400); Platelet Morphology Comment Appears Adequate; RBC Distribution Width 16.5 % (11.5-14.5); White Blood Cell (WBC) Count 5.5 thou/uL (4.8-10.8)
--- NOTE | 2019-12-21 08:48 | PRG ---
DATE OF SERVICE: 12/21/2019 SUBJECTIVE: Mrs. Mejía is a 74-year-old white female with history of liver carcinoma, on chemotherapy-on Opdivo, and was admitted for generalized malaise. She was found to have symptomatic anemia. She received blood transfusion. We are following her up for her acute kidney injury. We felt that the acute kidney injury is a hemodynamically-mediated dysfunction based on the urine sediment and urine chemistries. She has received 2 units of packed RBC and in addition, we maintained her on normal saline. She was also mildly hyperkalemic, which is now resolved. Please note, diuretics and lisinopril are currently on hold. She is feeling better this morning. OBJECTIVE: VITAL SIGNS: Blood pressure is noted at 121/55, heart rate 72, respiratory rate 18, temperature 98.2, O2 saturation 95%. GENERAL: Patient is awake, alert, comfortable, not in overt distress. SKIN: Adequate turgor. HEENT: She has slightly pale conjunctivae. Anicteric sclerae. NECK: No neck mass. No carotid bruits. No JVD. CHEST: No deformities. LUNGS: Clear breath sounds. HEART: Normal sinus rhythm. No murmur. No gallops. No rubs. ABDOMEN: Globular, soft, nontender. No masses. EXTREMITIES: No edema. No deformities. MEDICATIONS: Medications of December 21, 2019, was reviewed. LABORATORY DATA: Laboratories of December 21, 2019; white count 5.5, hemoglobin 8.3. Sodium 140, potassium 5.1, chloride 106, carbon dioxide 24, BUN 50, creatinine 2.88, GFR 16 mL/minute, glucose 120. Uric acid is 10.2. Phosphorus 4.7, albumin 3.2. ASSESSMENT AND PLAN: 1. Acute kidney injury-superimposed hemodynamically-mediated dysfunction. The patient's diuretics and JULIAN inhibitors are currently on hold. Currently, we will continue normal saline at 125 mL/hour. Please note, she is status post blood transfusion. There is no indication for any emergent dialysis for this patient. 2. Anemia. P.r.n. blood transfusion. GI following. 3. Liver cancer. Continue supportive care. 4. Recheck CBC, basic metabolic panel in a.m. Job ID: [id number]
[2019-12-21] MEDS: Carvedilol 6.25 MG TAB PO SCH ×2 (08:51→19:56)
[2019-12-21] MEDS: Allopurinol 100 MG TAB PO SCH (08:51)
[2019-12-21] MEDS: Pantoprazole 40 MG VIAL IVP SCH (08:51)
[2019-12-21] MEDS: Cyanocobalamin (Vitamin B-12) 1,000 MCG TAB PO SCH (08:51)
--- NOTE | 2019-12-21 08:56 | CON ---
DATE OF CONSULTATION: 12/20/2019 HISTORY OF PRESENT ILLNESS: Ms. Mejía is a 74-year-old white female with known history of acute kidney injury/chronic renal failure, liver cancer, and admitted for generalized malaise. She was found to be symptomatically anemic with a hemoglobin of 6.8. During the initial evaluation, she was noted to have a worsening renal dysfunction. Creatinine was noted at 3.7. At the same time, the patient was noted to be hyperkalemic with potassium 6.2. Please note that the patient has been taking lisinopril as an outpatient. We are now being consulted for further management of this acute kidney injury on top of her chronic renal failure. Please note, I did order a renal ultrasound, which showed increased echogenicity and thinning of the cortex and decreased size in the kidneys. REVIEW OF SYSTEMS: Positive for generalized malaise. No chest pain. Mild shortness of breath. No nausea. No vomiting. No diarrhea. No constipation. No productive cough. No fever or chills. No gross hematuria. No dysuria. No urinary frequency. No hematochezia. No melena. No hematemesis. HOME MEDICATIONS: Includes the following; 1. Zocor 20 mg at bedtime. 2. Xarelto 20 mg q.p.m. 3. KCl 20 mEq once a day. 4. Protonix 20 mg once a day. 5. Zofran 4 mg q.8 p.r.n. 6. Magnesium oxide 400 mg daily. 7. Lisinopril 5 mg q.a.m. 8. Furosemide 20 mg daily p.r.n. 9. Ferrous sulfate 325 mg once a day. 10. Carvedilol 6.25 mg p.o. b.i.d. 11. Allopurinol 100 mg once a day. 12. Vitamin D3 of 2000 international units daily. 13. Vitamin B12 of 1000 mcg daily. 14. Ferrous sulfate 325 mg daily. PAST MEDICAL HISTORY: 1. History of liver cancer. 2. History of hypertension. 3. History of atrial flutter. 4. History of mitral valve disease. 5. History of obesity. 6. Hepatic cancer, in remission. 7. History of coronary artery disease. Please note, the patient is receiving Opdivo every 2 weeks with her oncologist. PAST SURGICAL HISTORY: Status post liver biopsy, status post mitral valve replacement x2 - the first one was an open surgery and the second was to a percutaneous technique, status post cardiac cath, status post CABG, status post upper and lower GI endoscopy, status post hysterectomy, status post cardiac ablation therapy, recently status post MediPort placement. SOCIAL HISTORY: The patient originally from [place], but currently lives in [place]. She is , one child. 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 Smoked for 25 years, one pack a day. Alcohol, none. Education, 2 years college. Status post multiple blood transfusion. No IV drug abuse. FAMILY HISTORY: No family history of ESRD. ALLERGIES: PENICILLIN. TRAUMA: None. IMMUNIZATIONS: Up-to-date. HOSPITALIZATIONS: Please see past medical history. PHYSICAL EXAMINATION: VITAL SIGNS: Blood pressure is 121/51, heart rate 71, respiratory rate 16, temperature 98.3, and O2 saturation is 100% on room air. GENERAL: The patient is noted to be awake, supine, comfortable, not in overt distress. SKIN: Adequate turgor. HEENT: She has pale conjunctivae. Anicteric sclerae. NECK: No neck mass. No carotid bruits. No JVD. CHEST: No deformities. LUNGS: Clear breath sounds. No wheezing. No crackles. HEART: Normal sinus rhythm. No murmurs. No gallops. No rubs. ABDOMEN: Globular, soft, and nontender. No masses. EXTREMITIES: No edema. No deformities. NEUROLOGICAL: Awake, oriented to 3 spheres. Moving all extremities. No tremors. No asterixis. No ataxia. LABORATORY DATA: Laboratories of December 20, 2019; white count 5.1, hemoglobin 6.8, and hematocrit 20.8. Sodium 137, potassium 6.2, chloride 102, carbon dioxide 26, BUN 54, creatinine 3.75, glucose 137, calcium 8.8, AST 30, ALT 14, and albumin is 3.5. On December 19, 2019; sodium 139, potassium 6.9, chloride 103, carbon dioxide 27, BUN 53, and creatinine 3.22. On November 29, 2019, creatinine 1.03. Renal ultrasound of December 20, 2019, shows echogenic bilateral kidneys with cortical thinning and small size of each kidney suggestive of chronic renal disease. No evidence of hydronephrosis, ascities imaged in right upper quadrant. Urinalysis of December 20, 2019; protein is 30, rbc 0 to 3, wbc 0 to 3, hyaline casts 11 to 20, urine sodium is 28, and urine creatinine is 262. ASSESSMENT AND PLAN: 1. Acute kidney injury, consider hemodynamically-mediated renal dysfunction. Urine sediment was relatively benign except for finding of a small amount of protein. In addition, specific gravity was 1.021, which was concentrated suggesting a prerenal picture with this patient. In addition, the urine creatinine was elevated at 262 with a urine sodium of 28, suggesting most likely a prerenal azotemia with this patient. Agree to optimize hemodynamics. Agree with blood transfusion. Consider starting the patient on lactated Ringer's at 125 mL/hour. If no improvement in the renal function continues to worsen despite of IV hydration, we may need to consider other etiologies of the renal dysfunction. Please note, the patient was in Opdivo and it causes acute kidney injury less frequently. However, the most common cause of acute kidney injury with Opdivo is tubulointerstitial nephritis followed by immune complex glomerulonephritis as well as thrombotic microangiopathy. However, I am less inclined with tubulointerstitial nephritis due to the benign urine sediment - no evidence of white cells or white cell cast. In addition, an immune complex glomerulonephritis is always a possibility with the proteinuria. However, the proteinuria has been noted more than a year ago. Furthermore, a rare course is thrombotic microangiopathy. I have not excluded doing a renal biopsy should the renal function further worsen and remain unimproved with IV hydration. There is no indication for any emergent dialysis at the present time. Recheck CBC and basic metabolic panel. 2. Mild hyperkalemia. We will simply observe this. ADDENDUM: I have change lactated Ringer's just to plain normal saline at 125 mL/hour. Job ID: [id number]
[2019-12-21] MEDS ORDERED: FLU VACC QS2020-21(65YR UP)/PF 240 MCG/0.7 ML SYRINGE IM ONE (12:45)
[2019-12-21 13:15] LABS: SARS-CoV-2 MS2 Positive; SARS-CoV-2 N Gene Negative; SARS-CoV-2 S Gene Negative; SARS-CoV-2 by NAA Not Detected (NotDetected); SARS-CoV-2 orf1ab Negative
--- NOTE | 2019-12-21 14:29 | PDOC.HOSPP ---
- Subjective Encounter Date: 12/21/19 Encounter Time: 10:40 Subjective: ambulated a bit with PT and rw, short winded after no abd pain or chest pain - Objective Vital Signs & Weight: Vital Signs (12 hours) Temp Pulse Pulse Pulse Resp BP BP 12/21/19 11:30 98.5 F 73 17 12/21/19 09:33 69 75 118/58 L 122/58 L 12/21/19 08:00 98.5 F 69 16 12/21/19 04:00 98.3 F 72 18 BP Pulse Ox Pulse Ox 12/21/19 11:30 105/54 L 99 12/21/19 09:33 99 12/21/19 08:00 118/58 L 97 12/21/19 04:00 121/55 L 95 Weight Weight 241 lb 11.2 oz I&O: 12/20/19 12/21/19 12/22/19 06:59 06:59 06:59 Intake Total 2430 Output Total 500 Balance 1930 Result Diagrams: 12/21/19 03:27 12/21/19 03:27 Hospitalist ROS - Medication Medications: Active Medications Generic Name Dose Route Start Last Admin Trade Name Freq PRN Reason Stop Dose Admin Allopurinol 100 mg 12/21/19 09:00 12/21/19 08:51 Allopurinol 100 Mg Tab PO 100 mg DAILY CLAY Administration Atorvastatin Calcium 10 mg 12/20/19 21:00 12/20/19 20:42 Atorvastatin Calcium 10 Mg Tab PO 10 mg HS CLAY Administration Carvedilol 6.25 mg 12/20/19 21:00 12/21/19 08:51 Carvedilol 6.25 Mg Tab PO 6.25 mg BID CLAY Administration Cyanocobalamin 1,000 mcg 12/21/19 09:00 12/21/19 08:51 Cyanocobalamin (Vitamin B-12) 1,000 Mcg Tab PO 1,000 mcg DAILY CLAY Administration - Exam General Appearance: awake alert Eye: PERRL, anicteric sclera ENT: no oropharyngeal lesions, moist mucosa Neck: supple, no JVD Heart: RRR, no murmur Respiratory: no wheezes, rales Gastrointestinal: soft, non-tender, normal bowel sounds, no guarding, no rigidity, distended Extremities: no cyanosis, 1+ LE edema Neurological: cranial nerve grossly intact, no focal deficits Psychiatric: normal affect, A&O x 3 Hosp A/P (1) Symptomatic anemia Code(s): D64.9 - ANEMIA, UNSPECIFIED Status: Acute (2) GOLDIE (acute kidney injury) Code(s): N17.9 - ACUTE KIDNEY FAILURE, UNSPECIFIED Status: Acute (3) Chronic stage c diastolic heart failure Code(s): I50.32 - CHRONIC DIASTOLIC (CONGESTIVE) HEART FAILURE Status: Chronic (4) Diabetes type 2, controlled Code(s): E11.9 - TYPE 2 DIABETES MELLITUS WITHOUT COMPLICATIONS Status: Chronic Qualifiers: Diabetes mellitus manager long term care insulin use: without detention use (5) Dyslipidemia Code(s): E78.5 - HYPERLIPIDEMIA, UNSPECIFIED Status: Chronic (6) Gout Code(s): M10.9 - GOUT, UNSPECIFIED Status: Chronic Qualifiers: Gout site: unspecified site Chronicity: chronic Presence of tophus: without tophus (7) H/O mitral valve replacement Code(s): Z95.2 - PRESENCE OF PROSTHETIC HEART VALVE Status: Chronic (8) Hepatocellular carcinoma Code(s): C22.0 - LIVER CELL CARCINOMA Status: Chronic (9) Hypertension Code(s): I10 - ESSENTIAL (PRIMARY) HYPERTENSION Status: Chronic Qualifiers: Hypertension type: essential hypertension Qualified Code(s): I10 - Essential (primary) hypertension (10) Morbid obesity with BMI of 40.0-44.9, adult Code(s): E66.01 - MORBID (SEVERE) OBESITY DUE TO EXCESS CALORIES; Z68.41 - BODY MASS INDEX [BMI]40.0-44.9, ADULT Status: Chronic - Plan has rales on clinical exam, recieved 2 u prbc's yesterday and iv fluids as well, will give one dose lasix and reduce ivf to 50mls/hr has anasarca and likely ascites h/h is stable after 2 u prbc's continue protonix, coreg, lipitor, allopurinol to ambulate as tolerated echo for lv function renal function is slowly trending down prognosis guarded with multiple medical issues in addition to treatment for hepatocellular Ca
[2019-12-21] MEDS ORDERED: Furosemide 40 MG/4 ML VIAL SLOW IVP SCH (15:00)
--- NOTE | 2019-12-21 15:25 | PDOC.MOPN ---
Interval History: feels stronger. Walking with PT. Denies bleeding. - Vital Signs Vital Signs: Vital Signs (12 hours) Temp Pulse Pulse Pulse Resp BP BP 12/21/19 11:30 98.5 F 73 17 12/21/19 09:33 69 75 118/58 L 122/58 L 12/21/19 08:00 98.5 F 69 16 12/21/19 04:00 98.3 F 72 18 BP Pulse Ox Pulse Ox 12/21/19 11:30 105/54 L 99 12/21/19 09:33 99 12/21/19 08:00 118/58 L 97 12/21/19 04:00 121/55 L 95 Weight Weight 241 lb 11.2 oz - Physical Exam General: Alert, Oriented x3, No acute distress HEENT: Atraumatic, PERRLA, EOMI, Mucous membr. moist/pink Lungs: Clear to auscultation Cardiovascular: Regular rate Abdomen: Other (obese, non tender) Skin: No rashes, No breakdown, No significant lesion Neurological: Normal speech - Labs Result Diagrams: 12/21/19 03:27 12/21/19 03:27 Lab results: Laboratory Results - last 24 hr 12/21/19 03:27: TSH 3rd Generation 2.1831 12/21/19 03:27: WBC 5.5, RBC 2.50 L, Hgb 8.3 L, Hct 24.9 L, MCV 99.6 H, MCH 33.3 H, MCHC 33.5, RDW 16.5 H, Plt Count 175, MPV 8.5, Neutrophils % (Manual) 63, Band Neuts % (Manual) 6, Lymphocytes % (Manual) 21, Monocytes % (Manual) 6, Eosinophils % (Manual) 4, Plt Morphology Comment Appears Adequate 12/21/19 03:27: Sodium 140, Potassium 5.1, Chloride 106, Carbon Dioxide 24, Anion Gap 15, BUN 50 H, Creatinine 2.88 H, Estimated GFR (MDRD) 16, BUN/Creatinine Ratio 17.36, Glucose 120 H, Uric Acid 10.2 H, Calcium 8.1, Phosphorus 4.7, Albumin 3.2 L 12/20/19 23:58: Hgb 8.5 L, Hct 26.1 L 12/20/19 13:16: SARS-CoV-2 (PCR) Not Detected 12/19/19 14:24: Blood Type O POSITIVE, Antibody Screen POSITIVE H, Antibody Identification ANTI-c, Antigen Typing KARY - NEGATIVE, Crossmatch See Detail Status: lab reviewed by me A/P - Problem (1) Symptomatic anemia Current Visit: Yes Code(s): D64.9 - ANEMIA, UNSPECIFIED Status: Acute (2) GOLDIE (acute kidney injury) Current Visit: No Code(s): N17.9 - ACUTE KIDNEY FAILURE, UNSPECIFIED Status: Acute (3) Hepatocellular carcinoma Current Visit: No Code(s): C22.0 - LIVER CELL CARCINOMA Status: Chronic - Plan Plan: monitor CBC, hgb stable lasix given for likely fluid overload continue PT appreciate nephrology and Sound assistance.
[2019-12-21] MEDS: Atorvastatin Calcium 10 MG TAB PO SCH (19:56)
--- NOTE | 2019-12-22 01:19 | PRG ---
DATE OF SERVICE: 12/21/2019 SUBJECTIVE: Ms. Mejía has had no overt GI bleeding. OBJECTIVE: VITAL SIGNS: Temperature 99.5, pulse 70, blood pressure 96/53. ABDOMEN: Soft, nontender, and nondistended. Bowel sounds are present. LABORATORY DATA: Her hemoglobin is 8.3, status post 2 units of transfusion. IMPRESSION: 1. Symptomatic anemia without overt gastrointestinal bleeding. 2. Hepatocellular carcinoma. 3. Acute on chronic renal insufficiency with creatinine trending down today. RECOMMENDATIONS: GI will sign off for now. Please call if we can be of assistance. Job ID: [id number]
[2019-12-22 04:51] LABS: Anion Gap 17 mmol/L (10-20); BUN (Urea Nitrogen) 46 mg/dL (9.8-20.1); Calc. Creatinine Clearance 39 mL/min (70-130); Carbon Dioxide 21 mmol/L (23-31); Chloride 106 mmol/L (98-107); Estimated GFR-MDRD 22; Glucose 120 mg/dL (83-110); Potassium 4.9 mmol/L (3.5-5.1); Sodium 139 mmol/L (136-145)
[2019-12-22 05:26] LABS: #Eosinphils 0.1 thou/uL (0.0-0.7); #Lymphocytes 0.6 thou/uL (1.20-3.40); #Monocytes 0.7 thou/uL (0.11-0.59); #Neutrophils 3.2 thou/uL (1.40-6.50); %Basophils 0.5 % (0.0-1.0); %Eosinophils 2.5 % (0.0-10.0); %Lymphocytes 12.2 % (21.0-51.0); %Monocytes 14.9 % (0.0-10.0); Anisocytosis SLIGHT = 6-15 cells (100X) (0-5/hpf); MDiff Complete? YES; Mean Corpuscular HGB CONC 32.8 g/dL (32.0-36.0); Mean Corpuscular Hemoglobin 32.9 pg (27.0-31.0); Mean Platelet Volume 9.4 fL (7.4-10.4); Platelet Count 105 thou/uL (130-400); Platelet Morphology Comment Appears Decreased; RBC Distribution Width 16.1 % (11.5-14.5); Red Blood Cell (RBC) Count 2.43 mill/uL (4.20-5.40); White Blood Cell (WBC) Count 4.6 thou/uL (4.8-10.8)
[2019-12-22] MEDS: Cyanocobalamin (Vitamin B-12) 1,000 MCG TAB PO SCH (08:13)
[2019-12-22] MEDS: Carvedilol 3.125 MG TAB PO SCH ×2 (08:13→17:08)
[2019-12-22] MEDS: Allopurinol 100 MG TAB PO SCH (08:13)
[2019-12-22] MEDS: Sodium Chloride 0.9% 1,000 ML IV SCH (08:14)
--- NOTE | 2019-12-22 08:17 | PRG ---
DATE OF SERVICE: 12/22/2019 SUBJECTIVE: Ms. Mejía is a 74-year-old white female who was admitted for symptomatic anemia. She has received 2 units of packed RBC with clinical improvement. We are also following up this patient for her acute kidney injury on top of her chronic renal failure. Please note, she had a superimposed hemodynamically-mediated renal dysfunction. She also was started on normal saline. However, yesterday, she developed some degree of shortness of breath. IV fluid was decreased from 125 to 50 mL/h. She was given one time dose of Lasix. In this morning, she is feeling better. Denies any chest pain or shortness of breath. OBJECTIVE: VITAL SIGNS: Blood pressure 112/53, heart rate 69, respiratory rate 20, temperature 98.2, and O2 saturation 94%. GENERAL: Awake, alert, sitting comfortable, not in distress. SKIN: Adequate turgor. HEENT: Slightly pale conjunctivae. Anicteric sclerae. NECK: No neck mass. No carotid bruits. No JVD. CHEST: No deformities. LUNGS: Clear breath sounds. No wheezing. No crackles. HEART: Normal sinus rhythm. No murmurs, gallops, or rubs. ABDOMEN: Globular, soft, nontender. No masses. EXTREMITIES: Trace edema. MEDICATIONS: Of December 22, 2019, reviewed. LABORATORY DATA: Of December 22, 2019; white count 4.6, hemoglobin 8. Sodium 139, potassium 4.9, chloride 106, carbon dioxide 21, BUN 46, creatinine 2.18, glucose 120, calcium 8.0. BNP is 496.3, TSH 2.18. ASSESSMENT AND PLAN: 1. Acute kidney injury - superimposed hemodynamically-mediated renal dysfunction. Improved with blood in normal saline. However, she did complain of some shortness of breath. For that reason, IV fluid was decreased to 50 mL/minute. In addition, she was given one time dose of Lasix. Renal function is continuing to improve. Please note, she had an admitting creatinine of 3.75, is now currently 2.18 with a GFR 22 mL/minute. Agree with continue current management. Agree with decreased dose of IV fluids. No indication for any dialytic intervention. 2. Anemia. P.r.n. blood transfusion. Oncology/Hematology is following. 3. Hepatocellular carcinoma - on chemotherapy/Opdivo. Oncology is following. 4. Recheck CBC and basic metabolic profile in a.m. Job ID: [id number]
--- NOTE | 2019-12-22 13:14 | PDOC.HOSPP ---
- Subjective Encounter Date: 12/22/19 Encounter Time: 11:30 Subjective: no sob or palp feels better, is ambulating in room and hallway with rw - Objective Vital Signs & Weight: Vital Signs (12 hours) Temp Pulse Resp BP Pulse Ox 12/22/19 11:07 98.9 F 70 20 104/55 L 94 L 12/22/19 07:17 98.2 F 69 20 112/53 L 94 L 12/22/19 04:00 97.8 F 70 18 85/43 L 95 12/22/19 02:10 84/43 L Weight Admit Weight 241 lb 11.2 oz Weight 241 lb 11.2 oz I&O: 12/21/19 12/22/19 12/23/19 06:59 06:59 06:59 Intake Total 2430 1440 Output Total 500 1200 Balance 1930 240 Result Diagrams: 12/22/19 04:08 12/22/19 04:08 Hospitalist ROS - Medication Medications: Active Medications Generic Name Dose Route Start Last Admin Trade Name Freq PRN Reason Stop Dose Admin Acetaminophen 650 mg 12/20/19 12:32 12/21/19 21:08 Acetaminophen 325 Mg Tab PO 650 mg Q6H PRN Administration Headache/Fever/Mild Pain (1-3) Allopurinol 100 mg 12/21/19 09:00 12/22/19 08:13 Allopurinol 100 Mg Tab PO 100 mg DAILY CLAY Administration Atorvastatin Calcium 10 mg 12/20/19 21:00 12/21/19 19:56 Atorvastatin Calcium 10 Mg Tab PO 10 mg HS CLAY Administration Carvedilol 3.125 mg 12/22/19 08:00 12/22/19 08:13 Carvedilol 3.125 Mg Tab PO 3.125 mg BID-WM CLAY Administration Cyanocobalamin 1,000 mcg 12/21/19 09:00 12/22/19 08:13 Cyanocobalamin (Vitamin B-12) 1,000 Mcg Tab PO 1,000 mcg DAILY CLAY Administration Sodium Chloride 1,000 mls @ 50 mls/hr 12/21/19 14:25 12/22/19 08:14 Normal Saline 0.9% IV 1,000 mls .Q20H CLAY Administration Pantoprazole Sodium 40 mg 12/21/19 21:00 12/22/19 08:13 Pantoprazole 40 Mg Tab PO 40 mg BID CLAY Administration Sodium Chloride 10 ml 12/22/19 09:00 12/22/19 08:39 Flush - Normal Saline 10 Ml Syringe IVF Not Given Q12HR CLAY - Exam General Appearance: awake alert Eye: PERRL, anicteric sclera ENT: no oropharyngeal lesions, moist mucosa Neck: supple, no JVD Heart: RRR, no murmur Respiratory: no wheezes, no rales Gastrointestinal: soft, non-tender, non-distended, normal bowel sounds Extremities: no cyanosis, 1+ LE edema Neurological: cranial nerve grossly intact, no focal deficits Psychiatric: normal affect, A&O x 3 Hosp A/P (1) Symptomatic anemia Code(s): D64.9 - ANEMIA, UNSPECIFIED Status: Acute (2) GOLDIE (acute kidney injury) Code(s): N17.9 - ACUTE KIDNEY FAILURE, UNSPECIFIED Status: Acute (3) Chronic stage c diastolic heart failure Code(s): I50.32 - CHRONIC DIASTOLIC (CONGESTIVE) HEART FAILURE Status: Chronic (4) Diabetes type 2, controlled Code(s): E11.9 - TYPE 2 DIABETES MELLITUS WITHOUT COMPLICATIONS Status: Chronic Qualifiers: Diabetes mellitus terminal superintendent insulin use: without assisted use (5) Dyslipidemia Code(s): E78.5 - HYPERLIPIDEMIA, UNSPECIFIED Status: Chronic (6) Gout Code(s): M10.9 - GOUT, UNSPECIFIED Status: Chronic Qualifiers: Gout site: unspecified site Chronicity: chronic Presence of tophus: without tophus (7) H/O mitral valve replacement Code(s): Z95.2 - PRESENCE OF PROSTHETIC HEART VALVE Status: Chronic (8) Hepatocellular carcinoma Code(s): C22.0 - LIVER CELL CARCINOMA Status: Chronic (9) Hypertension Code(s): I10 - ESSENTIAL (PRIMARY) HYPERTENSION Status: Chronic Qualifiers: Hypertension type: essential hypertension Qualified Code(s): I10 - Essential (primary) hypertension (10) Morbid obesity with BMI of 40.0-44.9, adult Code(s): E66.01 - MORBID (SEVERE) OBESITY DUE TO EXCESS CALORIES; Z68.41 - BODY MASS INDEX [BMI]40.0-44.9, ADULT Status: Chronic - Plan recieved 2 u prbc's 12/19, is on ivf at 50mls/hr has anasarca and likely ascites h/h is stable after 2 u prbc's continue protonix, coreg, lipitor, allopurinol to ambulate as tolerated echo for lv function renal function is slowly trending down prognosis guarded with multiple medical issues in addition to treatment for hepatocellular Ca transfer to onc floor
--- NOTE | 2019-12-22 14:47 | PDOC.MOPN ---
Interval History: continues to improve, eating more and working with PT. - Vital Signs Vital Signs: Vital Signs (12 hours) Temp Pulse Resp BP Pulse Ox 12/22/19 11:07 98.9 F 70 20 104/55 L 94 L 12/22/19 07:17 98.2 F 69 20 112/53 L 94 L 12/22/19 04:00 97.8 F 70 18 85/43 L 95 Weight Admit Weight 241 lb 11.2 oz Weight 241 lb 11.2 oz - Physical Exam General: Alert, Oriented x3, No acute distress HEENT: Atraumatic, PERRLA, EOMI, Mucous membr. moist/pink Lungs: Clear to auscultation, Normal air movement Cardiovascular: Regular rate, Normal S1, Normal S2, No murmurs, Gallops, Rubs Abdomen: Other (obese) Skin: No rashes, No breakdown, No significant lesion Neurological: Normal speech - Labs Result Diagrams: 12/22/19 04:08 12/22/19 04:08 Lab results: Laboratory Results - last 24 hr 12/22/19 04:08: B-Natriuretic Peptide 496.3 H 12/22/19 04:08: WBC 4.6 L, RBC 2.43 L, Hgb 8.0 L, Hct 24.4 L, MCV 100.0 H, MCH 32.9 H, MCHC 32.8, RDW 16.1 H, Plt Count 105 L, MPV 9.4, Neutrophils % 70.0, Neutrophils % (Manual) Not Reportable, Lymphocytes % 12.2 L, Monocytes % 14.9 H, Eosinophils % 2.5, Basophils % 0.5, Neutrophils # 3.2, Lymphocytes # 0.6 L, Monocytes # 0.7 H, Eosinophils # 0.1, Basophils # 0.0, Plt Morphology Comment Appears Decreased L, Anisocytosis SLIGHT = 6-15 cells 12/22/19 04:08: Sodium 139, Potassium 4.9, Chloride 106, Carbon Dioxide 21 L, Anion Gap 17, BUN 46 H, Creatinine 2.18 H, Estimated GFR (MDRD) 22, Glucose 120 H, Calcium 8.0 Status: lab reviewed by me A/P - Problem (1) Symptomatic anemia Current Visit: Yes Code(s): D64.9 - ANEMIA, UNSPECIFIED Status: Acute (2) GOLDIE (acute kidney injury) Current Visit: No Code(s): N17.9 - ACUTE KIDNEY FAILURE, UNSPECIFIED Status: Acute (3) Hepatocellular carcinoma Current Visit: No Code(s): C22.0 - LIVER CELL CARCINOMA Status: Chronic - Plan Plan: Kidney function improving, continue to monitor Hgb stable, check in am Home with ok with Nephrology.
[2019-12-22] MEDS: Atorvastatin Calcium 10 MG TAB PO SCH (20:04)
[2019-12-22] MEDS: Enoxaparin Sodium 30 MG/0.3 ML SYRINGE SC SCH (20:05)
[2019-12-23] MEDS: Sodium Chloride 0.9% 1,000 ML IV SCH (02:12)
[2019-12-23 03:52] LABS: #Eosinphils 0.1 thou/uL (0.0-0.7); #Lymphocytes 0.5 thou/uL (1.20-3.40); #Monocytes 0.6 thou/uL (0.11-0.59); #Neutrophils 3.6 thou/uL (1.40-6.50); %Basophils 0.5 % (0.0-1.0); %Eosinophils 2.9 % (0.0-10.0); %Lymphocytes 10.2 % (21.0-51.0); %Monocytes 12.4 % (0.0-10.0); Hemoglobin 8.6 g/dL (12.0-16.0); Mean Corpuscular HGB CONC 32.7 g/dL (32.0-36.0); Mean Corpuscular Hemoglobin 33.2 pg (27.0-31.0); Mean Platelet Volume 8.4 fL (7.4-10.4); Platelet Count 156 thou/uL (130-400); RBC Distribution Width 15.8 % (11.5-14.5); Red Blood Cell (RBC) Count 2.58 mill/uL (4.20-5.40); White Blood Cell (WBC) Count 4.8 thou/uL (4.8-10.8)
[2019-12-23 04:16] LABS: Anion Gap 13 mmol/L (10-20); BUN (Urea Nitrogen) 40 mg/dL (9.8-20.1); Calc. Creatinine Clearance 58 mL/min (70-130); Calcium 8.1 mg/dL (7.8-10.44); Carbon Dioxide 23 mmol/L (23-31); Chloride 107 mmol/L (98-107); Estimated GFR-MDRD 35; Glucose 123 mg/dL (83-110); Potassium 4.6 mmol/L (3.5-5.1); Sodium 138 mmol/L (136-145)
[2019-12-23] MEDS ORDERED: Furosemide 40 MG/4 ML VIAL SLOW IVP SCH (07:30)
[2019-12-23] MEDS: Carvedilol 3.125 MG TAB PO SCH ×2 (07:42→17:16)
[2019-12-23] MEDS: Allopurinol 100 MG TAB PO SCH (07:42)
[2019-12-23] MEDS: Cyanocobalamin (Vitamin B-12) 1,000 MCG TAB PO SCH (07:43)
--- NOTE | 2019-12-23 11:17 | PRG ---
DATE OF SERVICE: 12/23/2019 SUBJECTIVE: Ms. Mejía is a 74-year-old white female who was admitted for symptomatic anemia. She received 2 units of packed RBC. She was also noted to be in acute kidney injury on top of chronic renal failure. She was given gentle volume repletion. This improved her renal function. At the same time, the patient's hospital course had been marred by some shortness of breath. She is currently getting p.r.n. Lasix. She is tolerating this diuretic regimen. She voices no other complaints. OBJECTIVE: VITAL SIGNS: Blood pressure is 111/56, heart rate 70, respiratory rate 20, O2 saturation 95%, and temperature 98.1. GENERAL: The patient is awake, alert, supine, comfortable, not in overt distress. SKIN: Adequate turgor. HEENT: Slightly pale conjunctivae. Anicteric sclerae. NECK: No neck mass. No carotid bruits. No JVD. CHEST: No deformities. LUNGS: Decreased breath sounds. HEART: Normal sinus rhythm. No murmur. No gallops. No rubs. ABDOMEN: Globular, soft, nontender. No masses. EXTREMITIES: Trace edema. MEDICATIONS: Of December 23, 2019, were reviewed. LABORATORY DATA: Laboratories of December 23, 2019; white count 4.8, hemoglobin 8.6. Sodium 138, potassium 4.6, chloride 107, carbon dioxide 23, BUN 40, creatinine 1.46, glucose 123, and calcium 8.1. ASSESSMENT AND PLAN: 1. Acute kidney injury - superimposed hemodynamically-mediated renal dysfunction. Slowly improving renal function. Creatinine noted at 1.46, which was much improved from a peak of 3.75. She has currently stage III chronic renal failure. Continue judicious use of diuretics. 2. Shortness of breath, much improved. On p.r.n. Lasix. 3. Hepatocellular carcinoma. Supportive care. The patient is currently on chemotherapy. Opdivo is currently on hold. 4. Recheck CBC and basic metabolic profile in a.m. Job ID: [id number]
--- NOTE | 2019-12-23 12:00 | PDOC.HOSPP ---
- Subjective Encounter Date: 12/23/19 Encounter Time: 11:30 Subjective: sob is better is amb with walker no new complaints - Objective Vital Signs & Weight: Vital Signs (12 hours) Temp Pulse Resp BP Pulse Ox 12/23/19 07:13 98.1 F 70 20 111/56 L 95 12/23/19 04:00 98.1 F 70 16 112/53 L 94 L Weight Admit Weight 241 lb 11.2 oz Weight 241 lb 11.2 oz I&O: 12/22/19 12/23/19 12/24/19 06:59 06:59 06:59 Intake Total 1440 1358 Output Total 1200 750 Balance 240 608 Result Diagrams: 12/23/19 03:27 12/23/19 03:27 Hospitalist ROS - Medication Medications: Active Medications Generic Name Dose Route Start Last Admin Trade Name Freq PRN Reason Stop Dose Admin Acetaminophen 650 mg 12/20/19 12:32 12/21/19 21:08 Acetaminophen 325 Mg Tab PO 650 mg Q6H PRN Administration Headache/Fever/Mild Pain (1-3) Allopurinol 100 mg 12/21/19 09:00 12/23/19 07:42 Allopurinol 100 Mg Tab PO 100 mg DAILY CLAY Administration Atorvastatin Calcium 10 mg 12/20/19 21:00 12/22/19 20:04 Atorvastatin Calcium 10 Mg Tab PO 10 mg HS CLAY Administration Carvedilol 3.125 mg 12/22/19 08:00 12/23/19 07:42 Carvedilol 3.125 Mg Tab PO 3.125 mg BID-WM CLAY Administration Cyanocobalamin 1,000 mcg 12/21/19 09:00 12/23/19 07:43 Cyanocobalamin (Vitamin B-12) 1,000 Mcg Tab PO 1,000 mcg DAILY CLAY Administration Enoxaparin Sodium 30 mg 12/22/19 21:00 12/22/19 20:05 Enoxaparin Sodium 30 Mg/0.3 Ml Syringe SC Not Given 2100 CLAY Furosemide 40 mg 12/23/19 07:30 12/23/19 07:41 Furosemide 40 Mg/4 Ml Vial SLOW IVP 12/23/19 12:00 40 mg NOW CLAY Administration Pantoprazole Sodium 40 mg 12/21/19 21:00 12/23/19 07:42 Pantoprazole 40 Mg Tab PO 40 mg BID CLAY Administration Sodium Chloride 10 ml 10/23/20 09:00 12/23/19 07:43 Flush - Normal Saline 10 Ml Syringe IVF 10 ml Q12HR CLAY Administration - Exam General Appearance: awake alert Eye: PERRL, anicteric sclera ENT: no oropharyngeal lesions, moist mucosa Neck: supple, no JVD Heart: RRR, no murmur Respiratory: no wheezes, no rales Gastrointestinal: soft, normal bowel sounds, distended Extremities: no cyanosis, 1+ LE edema Skin: normal turgor, no rashes Neurological: cranial nerve grossly intact, no focal deficits Hosp A/P (1) Symptomatic anemia Code(s): D64.9 - ANEMIA, UNSPECIFIED Status: Acute (2) GOLDIE (acute kidney injury) Code(s): N17.9 - ACUTE KIDNEY FAILURE, UNSPECIFIED Status: Acute (3) Chronic stage c diastolic heart failure Code(s): I50.32 - CHRONIC DIASTOLIC (CONGESTIVE) HEART FAILURE Status: Chronic (4) Diabetes type 2, controlled Code(s): E11.9 - TYPE 2 DIABETES MELLITUS WITHOUT COMPLICATIONS Status: Chronic Qualifiers: Diabetes mellitus chcf insulin use: without chcf use (5) Dyslipidemia Code(s): E78.5 - HYPERLIPIDEMIA, UNSPECIFIED Status: Chronic (6) Gout Code(s): M10.9 - GOUT, UNSPECIFIED Status: Chronic Qualifiers: Gout site: unspecified site Chronicity: chronic Presence of tophus: without tophus (7) H/O mitral valve replacement Code(s): Z95.2 - PRESENCE OF PROSTHETIC HEART VALVE Status: Chronic (8) Hepatocellular carcinoma Code(s): C22.0 - LIVER CELL CARCINOMA Status: Chronic (9) Hypertension Code(s): I10 - ESSENTIAL (PRIMARY) HYPERTENSION Status: Chronic Qualifiers: Hypertension type: essential hypertension Qualified Code(s): I10 - Essential (primary) hypertension (10) Morbid obesity with BMI of 40.0-44.9, adult Code(s): E66.01 - MORBID (SEVERE) OBESITY DUE TO EXCESS CALORIES; Z68.41 - BODY MASS INDEX [BMI]40.0-44.9, ADULT Status: Chronic - Plan recieved 2 u prbc's 12/19, off iv fluids, renal function almost baseline this am one dose lasix has anasarca and likely ascites h/h is stable after 2 u prbc's continue protonix, coreg, lipitor, allopurinol to ambulate as tolerated echo for lv function prognosis guarded with multiple medical issues in addition to treatment for hepatocellular Ca likely dc plan in am
--- NOTE | 2019-12-23 15:05 | PDOC.MOPN ---
Interval History: feeling much better, walking in the halls, no bleeding, breathing is better. - Vital Signs Vital Signs: Vital Signs (12 hours) Temp Pulse Resp BP Pulse Ox 12/23/19 08:00 95 12/23/19 07:13 98.1 F 70 20 111/56 L 95 12/23/19 04:00 98.1 F 70 16 112/53 L 94 L Weight Admit Weight 241 lb 11.2 oz Weight 241 lb 11.2 oz - Physical Exam General: Alert, No acute distress HEENT: Atraumatic Lungs: Clear to auscultation Cardiovascular: Regular rate, Other (irregular at times) Abdomen: Soft, No tenderness Extremities: Other (trace edema) Neurological: Normal speech Psych/Mental Status: Mental status NL - Labs Result Diagrams: 12/23/19 03:27 12/23/19 03:27 Lab results: Laboratory Results - last 24 hr 12/23/19 03:27: WBC 4.8, RBC 2.58 L, Hgb 8.6 L, Hct 26.2 L, MCV 102.0 H, MCH 33.2 H, MCHC 32.7, RDW 15.8 H, Plt Count 156, MPV 8.4, Neutrophils % 74.0, Lymphocytes % 10.2 L, Monocytes % 12.4 H, Eosinophils % 2.9, Basophils % 0.5, Neutrophils # 3.6, Lymphocytes # 0.5 L, Monocytes # 0.6 H, Eosinophils # 0.1, Basophils # 0.0 12/23/19 03:27: Sodium 138, Potassium 4.6, Chloride 107, Carbon Dioxide 23, Anion Gap 13, BUN 40 H, Creatinine 1.46 H, Estimated GFR (MDRD) 35, Glucose 123 H, Calcium 8.1 A/P - Problem (1) GOLDIE (acute kidney injury) Current Visit: No Code(s): N17.9 - ACUTE KIDNEY FAILURE, UNSPECIFIED Status: Acute (2) Acute blood loss anemia Current Visit: No Code(s): D62 - ACUTE POSTHEMORRHAGIC ANEMIA Status: Acute (3) Esophagitis Current Visit: No Code(s): K20.9 - ESOPHAGITIS, UNSPECIFIED * DO NOT USE * Status: Acute (4) GI bleeding Current Visit: No Code(s): K92.2 - GASTROINTESTINAL HEMORRHAGE, UNSPECIFIED Status: Acute (5) Chronic stage c diastolic heart failure Current Visit: No Code(s): I50.32 - CHRONIC DIASTOLIC (CONGESTIVE) HEART FAILURE Status: Chronic (6) Hepatocellular carcinoma Current Visit: No Code(s): C22.0 - LIVER CELL CARCINOMA Status: Chronic - Plan Plan: 1. Cr improving, hopefully it will return to normal 2. follow hgb, may need more blood although we can manage this as outpt 3. IV iron as necessary 4. her overall prognosis is poor, she is progressing on MRI last week, we discuss this today. Stop opdivo 5. discuss hospice vs moving forward with a third line of treatment, we will make decisions as an outpt and set her up for f/u on discharge
[2019-12-23] MEDS: Enoxaparin Sodium 30 MG/0.3 ML SYRINGE SC SCH (20:41)
[2019-12-23] MEDS: Atorvastatin Calcium 10 MG TAB PO SCH (20:41)
[2019-12-24 06:12] LABS: #Eosinphils 0.2 thou/uL (0.0-0.7); #Lymphocytes 0.4 thou/uL (1.20-3.40); #Monocytes 0.5 thou/uL (0.11-0.59); #Neutrophils 2.9 thou/uL (1.40-6.50); %Basophils 0.4 % (0.0-1.0); %Eosinophils 3.9 % (0.0-10.0); %Lymphocytes 10.7 % (21.0-51.0); %Monocytes 12.2 % (0.0-10.0); %Neutrophils 72.8 % (42.0-75.0); Hemoglobin 8.5 g/dL (12.0-16.0); Mean Corpuscular HGB CONC 33.1 g/dL (32.0-36.0); Mean Corpuscular Hemoglobin 33.3 pg (27.0-31.0); Mean Platelet Volume 8.1 fL (7.4-10.4); Platelet Count 155 thou/uL (130-400); RBC Distribution Width 15.6 % (11.5-14.5); Red Blood Cell (RBC) Count 2.55 mill/uL (4.20-5.40)
[2019-12-24 06:34] LABS: Anion Gap 12 mmol/L (10-20); BUN (Urea Nitrogen) 36 mg/dL (9.8-20.1); Calc. Creatinine Clearance 65 mL/min (70-130); Calcium 8.5 mg/dL (7.8-10.44); Carbon Dioxide 27 mmol/L (23-31); Chloride 105 mmol/L (98-107); Estimated GFR-MDRD 40; Glucose 126 mg/dL (83-110); Potassium 4.8 mmol/L (3.5-5.1); Sodium 139 mmol/L (136-145)
[2019-12-24 08:30] VITALS: BP 127/61; TEMP 99.1
[2019-12-24] MEDS: Allopurinol 100 MG TAB PO SCH (09:30)
[2019-12-24] MEDS: Cyanocobalamin (Vitamin B-12) 1,000 MCG TAB PO SCH (09:30)
[2019-12-24] MEDS: Carvedilol 3.125 MG TAB PO SCH (09:30)
--- NOTE | 2019-12-24 10:17 | PRG ---
DATE OF SERVICE: 12/24/2019 SUBJECTIVE: Ms. Mejía is a 74-year-old white female with known history of hepatocellular carcinoma, admitted for symptomatic anemia, and was seen by the Renal Service for her acute kidney injury that was a hemodynamically-mediated renal dysfunction. She was empirically volume repleted, and is currently improving over time. No other complaints. No chest pain or shortness of breath. She also has received p.r.n. Lasix. The patient voices no new complaints. OBJECTIVE: VITAL SIGNS: Blood pressure is 127/61, heart rate 70, respiratory rate 20, temperature 99.1, O2 saturation 94%. GENERAL: The patient is awake, alert, comfortable, not in distress. SKIN: Adequate turgor. HEENT: Slightly pale conjunctivae. Anicteric sclerae. NECK: No neck mass. No carotid bruits. No JVD. CHEST: No deformities. LUNGS: Clear breath sounds. No wheezing. No crackles. HEART: Normal sinus rhythm. No murmur. No gallops. No rubs. ABDOMEN: Globular, soft, nontender. No masses. EXTREMITIES: No edema. No deformities. MEDICATIONS: On December 24, 2019, were reviewed. LABORATORY DATA: On December 24, 2019; white count 4, hemoglobin 8.5. Sodium 139, potassium 4.8, chloride 105, carbon dioxide 27, BUN 36, creatinine 1.29, glucose 126, calcium 8.5, ferritin 72.1. ASSESSMENT AND PLAN: Acute kidney injury-superimposed hemodynamically-mediated renal dysfunction, much improved with gentle volume repletion. She also tolerated the diuretic regimen in the last few days. There is no indication for any dialytic intervention. Agree with current management. The plan is to discharge this patient. We will follow her up at outpatient clinic. The patient is instructed to call my office for followup visit. Job ID: [id number]
--- NOTE | 2019-12-24 17:45 | DIS ---
DATE OF ADMISSION: 12/20/2019 DATE OF DISCHARGE: 12/24/2019 DISCHARGE DISPOSITION: To home. PRIMARY DISCHARGE DIAGNOSES: Symptomatic anemia, acute kidney injury. SECONDARY DISCHARGE DIAGNOSES: Chronic stage C diastolic dysfunction, diabetes mellitus type 2, dyslipidemia, gout, history of hepatocellular carcinoma with progression, history of bioprosthetic mitral valve replacement, hypertension, and morbid obesity. PROCEDURES DONE DURING HOSPITALIZATION: The patient received 2 units of packed cell transfusion on 12/20/2019. Ultrasound of kidneys done showed echogenic bilateral kidneys with renal cortical thinning on small size of each kidney, no hydronephrosis. Ascites was partially imaged in the right upper quadrant. Echo with 2D Doppler showed EF of 50%, diastolic dysfunction, inferior wall hypokinesis, bioprosthetic mitral valve well seated. Mitral valve area was 3.46 cm2. Elevated right ventricular systolic pressure was estimated at 70 mmHg. Initial H and H were 6.8 and 20, MCV of 101 on admission, discharge H and H 8.5 and 25.6, platelet count 155 on the day of discharge, white count of 4. Discharge BUN and creatinine are 36 and 1.29. Admitting BUN and creatinine were 53 and 3.2 with potassium of 6.1 on admission. COVID-19 PCR was not detected on 12/20/2019. DISCHARGE MEDICATIONS: 1. Vitamin B12 1000 mcg p.o. daily. 2. Ferrous sulfate 325 mg p.o. daily. 3. Lasix 20 mg p.r.n. for edema. 4. Potassium chloride 20 mEq on the day. 5. She takes Lasix. 6. Protonix 20 mg daily. 7. Vitamin D3 2000 units p.o. daily. 8. Xarelto to start after a week at 20 mg q.p.m. 9. Zocor 20 mg p.o. at bedtime. 10. Allopurinol 100 mg p.o. daily. 11. Carvedilol 3.125 mg twice daily. ALLERGIES: ALLERGIC TO PENICILLIN. DISCHARGE PLAN: The patient to follow up with Dr. Valderrama as advised and Dr. Reid in 1 week. BRIEF COURSE DURING HOSPITALIZATION: The patient initially got admitted on the with severe anemia and hemoglobin of 6.8 with a potassium of 6.2 and creatinine of 3.7. She also had anasarca. The patient has had 2 units of packed cell transfusion placed. She was initially hydrated, later gently diuresed. The patient's peripheral edema has resolved. The patient likely has ascites with progressive hepatocellular carcinoma. Her Opdivo which she takes for hepatocellular carcinoma has been discontinued. The patient likely will have a newer medication instituted when she follows up with Dr. Valderrama. No endoscopies were done as her hemoglobin stayed stable after initial 2 units of transfusion. The patient did not have any active GI bleeding as such. Her renal function has recovered and is almost at baseline. She has had consultation with Dr. Will for the same. Please note, I have seen and examined the patient on the day of discharge. Job ID: [id number] [facility]
--- NOTE | 2019-12-26 07:34 | PQF ---
CLINICAL DOCUMENTATION CLARIFICATION FORM: Dear : Law Giron Date / Time: 12/26/2019 0136 Please exercise your independent, professional judgment in responding to the clarification form. Clinical indicators are provided on the bottom of this form for your review Please check appropriate box(es): [ ] Acute blood loss anemia [ x ] Anemia due to Hepatocallulac carcinoma [ x] Anemia due to CKD [x ] Anemia due to Chemotherapy [ ] Other diagnosis [ ] Unable to determine Physician Signature: Date/Time: For continuity of documentation, please document condition throughout progress notes and discharge summary. Thank You. To be completed by CDI/Coding staff for physician review: Present Clinical Indicators - Signs / Symptoms / Labs Results and Location in Medical Record [X] RBC 2.05, Hgb 6.8; 8.5, Hct 20.8; 26.1 Laboratory 12/19 [X] presented with Hgb of 6.8, potassium of 6.2 and creatinine of 3.7 H&P p1 12/19 Dr Giron [X] Pt states she has black stools, she takes iron pills H&P p1 12/19 Dr Giron [X] Severe Anemia H&P p1 12/19 Dr Giron [X] Acute on chronic anemia with macrocytic index. No signs of overt bleeding. Her anemia could be mutifactorial ranging, chronic kidney disease, chemotheraphy, nutrition and possible GI blood loss Consult Manuel Camargo 12/19 [X] Acute blood loss anemia Onco PN p1 12/22 Dr Valderrama [X] Recurrent symptomatic anemia which could be caused by Levima and possibly a GI bleed Consult 12/19 [X] She has slightly pale conjunctivae PN 12/20 Present Risk Factors Results and Location in Medical Record [X] 74 year-old Female H&P p1 12/19 Dr Giron [X] GOLDIE H&P p1 12/19 Dr Giron [X] Hepatocellar carcinoma H&P p1 12/19 Dr Giron [X] HTN H&P p1 12/19 Dr Giron [X] Obesity H&P p1 12/19 Dr Giron [X] CKD H&P p1 12/19 Dr Giron Present Treatments Results and Location in Medical Record [X] Transfusion of blood products: RBC Blood bank 12/19 [X] Series of Hgb and Hct Laboratory 12/19 [X] IVF NS 1L MAR 12/19 [X] Oncology consult Consult Mandi Bruce 12/19 [X] GE consult Consult Manuel Camargo 12/19 CDS/Tool Setter Apprentice Signature: Maryuri Thakkar Greggjefferyana maria Phone #: ext [phone] Date/Time: 12/26/2019 0733 This is a permanent part of the Medical Record [facility]
--- NOTE | 2019-12-26 07:36 | PQF ---
CLINICAL DOCUMENTATION CLARIFICATION FORM: Dear : Law Giron Date / Time: 12/26/2019 0415 Please exercise your independent, professional judgment in responding to the clarification form. Clinical indicators are provided on the bottom of this form for your revi Please check appropriate box(es) to clarify if the following diagnosis has been ruled in our ruled out: Esophagitis with GI bleeding [ ] Ruled in diagnosis [ ] Continue to treat [ ] Resolved [ x ] Ruled out diagnosis [ ] Improving [ ] Cannot rule out diagnosis [ ] Other diagnosis [ ] Unable to determine Physician Signature: Date/Time: For continuity of documentation, please document condition throughout progress notes and discharge summary. Thank You. To be completed by CDI/Coding staff for physician review: Present Clinical Indicators - Signs / Symptoms / Labs Results and Location in Medical Record [X] RBC 2.05, Hgb 6.8; 8.5, Hct 20.8; 26.1 Laboratory 12/19 [X] presented with Hgb of 6.8, potassium of 6.2 and creatinine of 3.7 H&P p1 12/19 Dr Giron [X] Pt states she has black stools, she takes iron pills H&P p1 12/19 Dr Giron [X] Severe Anemia H&P p1 12/19 Dr Giron [X] Acute on chronic anemia with macrocytic index. No signs of overt bleeding. Her anemia could be mutifactorial ranging, chronic kidney disease, chemotheraphy, nutrition and possible GI blood loss Consult Manuel Camargo 12/19 [X] Acute blood loss anemia Onco PN p1 12/22 Dr Valderrama [X] Esophagitis Onco PN p1 12/22 Dr Valderrama [X] GI bleeding Onco PN p1 12/22 Dr Valderrama Present Risk Factors Results and Location in Medical Record [X] 74 year-old Female H&P p1 12/19 Dr Giron [X] GOLDIE H&P p1 12/19 Dr Giron [X] Hepatocellar carcinoma H&P p1 12/19 Dr Giron [X] HTN H&P p1 12/19 Dr Giron [X] Obesity H&P p1 12/19 Dr Giron Present Treatments Results and Location in Medical Record [X] Transfusion of blood products: RBC Blood bank 12/19 [X] Series of Hgb and Hct Laboratory 12/19 [X] IVF NS 1L MAR 12/19 [X] GE consult Consult Manuel Camargo 12/19 CDS/Debug Technician Signature: Maryuri Ariane Wallace Phone #: ext [phone] Date/Time: 12/26/2019 4239 This is a permanent part of the Medical Record [id number]
== END 2019-12-24 14:50 | disposition home or self-care (01) | DRG 436 ==
LOC: 2NO 10:10 → ONC 12-22 15:56
PROVIDERS: ADMIT Internal Medicine; ATTEND Internal Medicine
PROC: 30233N1 Transfusion of Nonautologous Red Blood Cells into Peripheral Vein, Percutaneous Approach (ICD-10-PCS; principal; 2019-12-20)
DX: C22.0 Liver cell carcinoma (principal); N17.9 Acute kidney failure, unspecified; Z68.41 Body mass index [BMI] 40.0-44.9, adult; I13.0 Hypertensive heart and chronic kidney disease with heart failure and stage 1 through stage 4 chronic kidney disease, or unspecified chronic kidney disease; I50.32 Chronic diastolic (congestive) heart failure; R18.0 Malignant ascites; Z20.828 Contact with and (suspected) exposure to other viral communicable diseases; E11.22 Type 2 diabetes mellitus with diabetic chronic kidney disease; E78.5 Hyperlipidemia, unspecified; M10.9 Gout, unspecified; E66.01 Morbid (severe) obesity due to excess calories; E87.5 Hyperkalemia; E87.70 Fluid overload, unspecified; E78.00 Pure hypercholesterolemia, unspecified; N18.30 Chronic kidney disease, stage 3 unspecified; K20.90 Esophagitis, unspecified without bleeding; D64.81 Anemia due to antineoplastic chemotherapy; T45.1X5A Adverse effect of antineoplastic and immunosuppressive drugs, initial encounter; D63.0 Anemia in neoplastic disease; D63.1 Anemia in chronic kidney disease; I48.91 Unspecified atrial fibrillation; Z79.01 Long term (current) use of anticoagulants; Z95.2 Presence of prosthetic heart valve; Z95.0 Presence of cardiac pacemaker; Z99.81 Dependence on supplemental oxygen; Z90.710 Acquired absence of both cervix and uterus; Z79.899 Other long term (current) drug therapy; Z88.0 Allergy status to penicillin
CPT/HCPCS: 36415; 36430; 76770; 80048; 80053; 80069; 81001; 82248; 82570; 82728; 83615; 83880; 84100; 84300; 84436; 84443; 84550; 85025; 85610; 85730; 86850; 86870; 86900; 86901; 86905; 86922; 87635; 93306; C9113; J1642; J1940; P9016; U0003

== ENCOUNTER 2020-01-24 20:33 | Inpatient (IN) | payer MEDICARE, BC ==
[2020-01-24 21:34] LABS: #Lymphocytes 0.5 thou/uL (1.20-3.40); #Neutrophils 12.8 thou/uL (1.40-6.50); %Basophils 0.1 % (0.0-1.0); %Eosinophils 0.1 % (0.0-10.0); %Lymphocytes 3.1 % (21.0-51.0); %Monocytes 6.8 % (0.0-10.0); %Neutrophils 89.8 % (42.0-75.0); Hemoglobin 6.2 g/dL (12.0-16.0); Mean Corpuscular HGB CONC 31.5 g/dL (32.0-36.0); Mean Corpuscular Hemoglobin 29.4 pg (27.0-31.0); Mean Corpuscular Volume 93.4 fL (78.0-98.0); Mean Platelet Volume 8.4 fL (7.4-10.4); Platelet Count 256 thou/uL (130-400); RBC Distribution Width 17.1 % (11.5-14.5); Red Blood Cell (RBC) Count 2.09 mill/uL (4.20-5.40); White Blood Cell (WBC) Count 14.3 thou/uL (4.8-10.8)
[2020-01-24 21:40] LABS: INR-International Normal Ratio 1.6; Prothrombin Time 19.3 sec (12.0-14.7)
[2020-01-24 21:41] LABS: PTT 32.3 sec (22.9-36.1)
--- NOTE | 2020-01-24 21:56 | RAD ---
Portable frontal chest radiograph: 01/24/2020 COMPARISON: 04/17/2019 and 12/04/2019 HISTORY: Weakness, shortness of breath, extremity swelling FINDINGS: Stable right-sided Port-A-Cath. Stable left-sided transvenous pacing device. Stable promine nce of the cardiac silhouette. Pulmonary vascular congestion noted. There is a nonspecific linear interstitial density in the perihi lar regions and both lung bases, similar when compared to prior imaging. No lobar consolidation or alveolar edema. There is a questionable masslike density in the right perihilar region versus artifac t measuring in the 2 cm range. IMPRESSION: Nonspecific linear densities in the perihilar regions and both lung bases, similar when c ompared to prior imaging. Questionable mass density measuring 2 cm in the left perihilar region for which nonemergent follow-up CT is advised. CODE T Code LN
[2020-01-24 22:10] LABS: ALT (SGPT) 126 U/L (8-55); AST (SGOT) 337 U/L (5-34); Albumin 2.8 g/dL (3.4-4.8); Alkaline Phosphatase 182 U/L (40-110); Anion Gap 20 mmol/L (10-20); BUN (Urea Nitrogen) 90 mg/dL (9.8-20.1); CK (CPK) 199 U/L (29-168); Calc. Creatinine Clearance 0 mL/min (70-130); Calcium 7.8 mg/dL (7.8-10.44); Carbon Dioxide 22 mmol/L (23-31); Chloride 97 mmol/L (98-107); Globulin 2.3 g/dL (2.4-3.5); Glucose 152 mg/dL (83-110); Potassium 5.6 mmol/L (3.5-5.1); Protein, Total 5.1 g/dL (6.0-8.3); Sodium 133 mmol/L (136-145)
--- NOTE | 2020-01-24 22:18 | CT ---
Head CT without contrast: 01/24/2020 COMPARISON: None HISTORY: Weakness TECHNIQUE: Axial CT imaging at 5 mm intervals from vertex through skull base without contrast FINDINGS: There is a vague area of hypodensity within the posterior right occipital region measuring up to approximately 9-10 mm, best seen on axial image 11. There is no intracranial hemorrhage or midline shift. No mass effect. No acute osseous abnormality. IMPRESSION: Vague area of hypodensity within the right occipital region which could be on the basis o f age indeterminant ischemia. If there is clinical concern for acute infarction, follow-up brain MRI is advised. No evidence for intracranial hemorrhage is seen.
[2020-01-25] MEDS ORDERED: Ondansetron ODT 4 MG TAB SL PRN (02:30)
[2020-01-25] MEDS ORDERED: Ondansetron PF 4 MG/2 ML Vial IVP PRN (02:30)
--- NOTE | 2020-01-25 02:47 | PDOC.HHP ---
Hospitalist HPI - History of Present Illness weakness History of Present Illness: Case of an 74y/o female with pmhx of gi bleeds, hepatocellular carcinoma, ckd hx of mitral valve replacment bovine 2016, chf s/p ppm on home , obesity hld htn and atrial fibrillation s/p ablation on chronic anticoagulation wit xarelto who presents with weakness since yesterday. patient refers she was on bahtroom for 9 hours because she was so weak could not get up, family members found her and took her to bed. patient did not improved on the following day and brought her to hospital for evaluation. patient refers 4 days of dark stools denies fever chills n/v or abdominal pain Hospitalist ROS - Review of Systems All other systems reviewed; all pertinent +/- noted in HPI/Subj Hospitalist History - Past Medical History Heme/Onc: reports: Anemia NOS, Cancer Hepatobiliary: reports: Other (HCC) Psych: reports: no pertinent history Musculoskeletal: reports: no pertinent history Rheumatologic: reports: no pertinent history Renal/: reports: no pertinent history Endocrine: reports: no pertinent history Dermatology: reports: no pertinent history - Past Surgical History Past Surgical History: reports: Hysterectomy, Other (mitral valve replacement x 2) - Social History Alcohol: reports: Rare Drugs: reports: none - Exam General Appearance: NAD, awake alert Eye: PERRL, anicteric sclera ENT: normocephalic atraumatic, no oropharyngeal lesions Neck: supple, symmetric, no JVD, no thyromegaly Heart: RRR, no murmur, no gallops, no rubs Respiratory: CTAB, no wheezes, no rales, no ronchi Gastrointestinal: soft, non-tender, non-distended, normal bowel sounds Extremities: no cyanosis, no clubbing, no edema Skin: normal turgor, no lesions, no rashes Neurological: cranial nerve grossly intact, normal sensation to touch, no weakness Musculoskeletal: normal tone, normal strength, no muscle wasting Psychiatric: normal affect, normal behavior, A&O x 3 Hospitalist Results - Labs Result Diagrams: 01/24/20 21:19 01/24/20 21:19 Lab results: WBC 14.3 thou/uL (4.8-10.8) H 01/24/20 21:19 Hgb 6.2 g/dL (12.0-16.0) L 01/24/20 21:19 Hct 19.6 % (36.0-47.0) L 01/24/20 21:19 MCV 93.4 fL (78.0-98.0) 01/24/20 21:19 Plt Count 256 thou/uL (130-400) 01/24/20 21:19 Neutrophils % 89.8 % (42.0-75.0) H 01/24/20 21:19 Sodium 133 mmol/L (136-145) L 01/24/20 21:19 Potassium 5.6 mmol/L (3.5-5.1) H 01/24/20 21:19 Chloride 97 mmol/L (98-107) L 01/24/20 21:19 Carbon Dioxide 22 mmol/L (23-31) L 01/24/20 21:19 BUN 90 mg/dL (9.8-20.1) H 01/24/20 21:19 Creatinine 4.51 mg/dL (0.6-1.1) H 01/24/20 21:19 Glucose 152 mg/dL (83-110) H 01/24/20 21:19 Calcium 7.8 mg/dL (7.8-10.44) 01/24/20 21:19 Total Bilirubin 1.0 mg/dL (0.2-1.2) 01/24/20 21:19 AST 337 U/L (5-34) H 01/24/20 21:19 ALT 126 U/L (8-55) H 01/24/20 21:19 Alkaline Phosphatase 182 U/L (40-110) H 01/24/20 21:19 Creatine Kinase 199 U/L (29-168) H 01/24/20 21:19 Serum Total Protein 5.1 g/dL (6.0-8.3) L 01/24/20 21:19 Albumin 2.8 g/dL (3.4-4.8) L 01/24/20 21:19 Hospitalist H&P A/P - Problem (1) GI bleeding Code(s): K92.2 - GASTROINTESTINAL HEMORRHAGE, UNSPECIFIED Status: Acute (2) GOLDIE (acute kidney injury) Code(s): N17.9 - ACUTE KIDNEY FAILURE, UNSPECIFIED Status: Acute (3) Chronic stage c diastolic heart failure Code(s): I50.32 - CHRONIC DIASTOLIC (CONGESTIVE) HEART FAILURE Status: Chronic (4) Diabetes type 2, controlled Code(s): E11.9 - TYPE 2 DIABETES MELLITUS WITHOUT COMPLICATIONS Status: Chronic Qualifiers: Diabetes mellitus remote computer terminal operator insulin use: without remote computer terminal operator use (5) Dyslipidemia Code(s): E78.5 - HYPERLIPIDEMIA, UNSPECIFIED Status: Chronic (6) H/O mitral valve replacement Code(s): Z95.2 - PRESENCE OF PROSTHETIC HEART VALVE Status: Chronic (7) Hepatocellular carcinoma Code(s): C22.0 - LIVER CELL CARCINOMA Status: Chronic (8) Hypertension Code(s): I10 - ESSENTIAL (PRIMARY) HYPERTENSION Status: Chronic Qualifiers: Hypertension type: essential hypertension Qualified Code(s): I10 - Essential (primary) hypertension (9) Morbid obesity with BMI of 40.0-44.9, adult Code(s): E66.01 - MORBID (SEVERE) OBESITY DUE TO EXCESS CALORIES; Z68.41 - BODY MASS INDEX [BMI]40.0-44.9, ADULT Status: Chronic (10) Hyperkalemia Code(s): E87.5 - HYPERKALEMIA Status: Acute - Plan Plan: 74y/o female with the stated pmhx who presents with gi bleeding gi bleeding - reports blood in stool - gi consulted - 2 prbcs ordered. patient w multiple blood transfusions in the past and multiple anti bodies, prbcs are coming from [place] and will be here in the morning - ppis q 12 - check hg a 6hr - holding medication that migh lower bp - holding blood thinners and antiplatelet medication -npo renal failure - marked increased in creatinine - ivf boluses given - patient with considerable anemia, unable to give ivfs 1xkg to prevent hemodilution - renal us - iron piler consulted hyperkalemia - likely secondary to renal failure - given iv boluses - recheck in am leukocytosis - may be sirs due to stress - cxr w/o consolidation, incidental 2cm density on L lung - will get u/a incidental finding in head ct, could be an old stroke, no focal weakness
[2020-01-25 08:23] LABS: SARS-CoV-2 MS2 Positive; SARS-CoV-2 N Gene Negative; SARS-CoV-2 S Gene Negative; SARS-CoV-2 by NAA Not Detected (NotDetected); SARS-CoV-2 orf1ab Negative
[2020-01-25] MEDS: Pantoprazole 40 MG VIAL IVP SCH ×2 (08:31→20:13)
--- NOTE | 2020-01-25 11:03 | CON ---
DATE OF CONSULTATION: 01/25/2020 HISTORY OF PRESENT ILLNESS: Ms. Mejía is a 74-year-old white female with history of hepatocellular carcinoma, status post GI bleed and readmitted for recurrent GI bleed again. According to the patient, she started developing tarry stools. She became very weak and called her grandson who brought her to the hospital for further management. During the initial evaluation, she was noted to be severely anemic with a hemoglobin of 6.2. We are currently awaiting for blood transfusion with her. We were consulted for her acute kidney injury with a creatinine noted at greater than 4 mg%. REVIEW OF SYSTEMS: Positive for tarry stools. Denies any nausea or vomiting. Decreased appetite. Decreased energy level. No fever or chills. No chest pain or shortness of breath. No gross hematuria. No dysuria. No hematochezia. No hematemesis. No abdominal pain. No syncopal episode. No joint pains. HOME MEDICATIONS: Included 1. Xarelto 20 mg q.p.m. 2. Zocor 20 mg at bedtime. 3. KCl 20 mEq once a day. 4. Protonix 40 mg daily. 5. Zofran p.r.n. 6. Furosemide 20 mg p.r.n. 7. Ferrous sulfate 325 mg daily. 8. Carvedilol 3.125 mg p.o. b.i.d. 9. Allopurinol 100 mg once a day. 10. Vitamin B12 1000 mcg daily. PAST MEDICAL HISTORY: 1. History of hepatocellular carcinoma-patient has failed Opdivo. Her oncologist is considering another type of treatment for her. 2. Status post GI bleed. 3. Hypertension, status post acute kidney injury. 4. History of atrial flutter. 5. History of mitral valve disease. 6. History of obesity, coronary artery disease. PAST SURGICAL HISTORY: Status post liver biopsy; status post mitral valve replacement x2, first was an open surgery, the second was through percutaneous technique; status post cardiac cath, status post CABG; status post upper and lower GI endoscopy; status post hysterectomy; status post cardiac ablation; status post MediPort placement. SOCIAL HISTORY: Patient was originally from [place], but currently lives in [place]. She is . She lives with her daughter. She has one child. 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 Smoked for 25 years, one pack a day. Alcohol, none. Education, 2 years college, status post multiple blood transfusion. No IV drug abuse. ALLERGIES: PENICILLIN. TRAUMA: None. IMMUNIZATION: Up-to-date. HOSPITALIZATIONS: Please see past medical history. FAMILY HISTORY: No family history of ESRD. PHYSICAL EXAMINATION: VITAL SIGNS: Blood pressure is 91/37, heart rate 70, respiratory rate 18, O2 saturation 100%. GENERAL: The patient is awake, supine, comfortable, lethargic, not in overt distress. SKIN: Adequate turgor. HEENT: Pale conjunctivae, anicteric sclerae. NECK: No neck mass. No carotid bruits. No JVD. CHEST: No deformities. LUNGS: Clear breath sounds. No wheezing. No crackles. HEART: Normal sinus rhythm. No murmur. No gallops. No rubs. ABDOMEN: Globular, soft, nontender, no masses. EXTREMITIES: No edema, no deformities. NEUROLOGIC: Moving all extremities. No tremors. No asterixis. Oriented to 3 spheres. IMAGING: January 24, 2020, chest x-ray shows nonspecific linear densities in the perihilar regions. There is a ? of mass density measuring 2 cm in the left perihilar region. CT scan of the brain, there is a vague area of hypodensity in the right occipital region. LABORATORY DATA: January 24, 2020; white count 14.3, hemoglobin 6.2. Sodium 133, potassium 5.6, chloride 97, carbon dioxide 22, BUN 90, creatinine 4.51, glucose 152. AST 337, ALT 126, alkaline phosphatase 182, albumin 2.8. Urinalysis pending. ASSESSMENT AND PLAN: 1. Acute kidney injury-creatinine noted at 4.5 mg%. Her previous creatinine was 1.29. I suspect with a GI bleed and severe anemia that she may have a superimposed hemodynamically-mediated renal dysfunction. Awaiting blood transfusion. Plan is to give her 2 to 4 units of packed RBC as needed. Due to the low blood pressure at the present time, we will start normal saline with this patient at 125 mL/hour. 2. Hypotension-most likely related to the GI bleed. Start normal saline at 125 mL/hour. Please note there is no indication for any emergent hemodialysis with this patient. 3. Consider repeat GI consult with this patient. Thank you for the consult. We will continue follow. Job ID: [id number] [facility]
[2020-01-25] MEDS: Sodium Chloride 0.9% 1,000 ML IV SCH ×2 (11:05→18:33)
[2020-01-25 11:46] LABS: Bacteria/HPF 4+ HPF (None Seen); Bilirubin 1+ (Negative); Blood, Urine Trace (Negative); Clarity Extra Turbid (Clear); Glucose, Urine (Dipstick) Normal (Negative); Ketone, Urine Negative (Negative); Leukocyte 500 Leu/uL (Negative); Nitrite Negative (Negative); Protein, Urine (Dipstick) 30 mg/dL (Neg-Trace); RBC/HPF 0-3 HPF (0-3); Specific Gravity, Urine 1.027 (1.002-1.036); WBC/HPF Greater than 50 HPF (0-3)
[2020-01-25 11:51] LABS: Transitional Epithelial 0-3 HPF (None Seen)
[2020-01-25 11:52] LABS: Urine Culture Reflex No No
--- NOTE | 2020-01-25 12:25 | CON ---
DATE OF CONSULTATION: 01/25/2020 REASON FOR CONSULTATION: Melena and anemia. HISTORY OF PRESENT ILLNESS: Joan Mejía is a very pleasant 74-year-old woman with an unfortunate history of hepatocellular carcinoma, which is not very responsive to chemotherapy. She is followed by my colleague, Dr. Mancera as well as by Dr. Valderrama, and by ian Lanza at [facility]. She has a history of atrial fibrillation as well as mitral valve replacement and has been on chronic anticoagulation with Xarelto. Over the past year, she has had recurrent admissions with acute on chronic anemia requiring multiple transfusions. It looks like she has had 12 units of RBCs over the course of this year. Back in April 2019, we performed EGD for investigation. She had an area of distal esophagitis with active ongoing oozing of blood, but there was really no visible vessel, no ulceration, nothing to endoscopically treat. We held Xarelto for some time and this seemed to resolve. She has been back on Xarelto since July. She has been undergoing chemotherapy for her hepatocellular carcinoma, but reports to me that imaging down in [place] last month showed progression of her tumor up to 8 cm and so her current chemo was discontinued. Further treatment for this is unclear. At any rate, she felt she was doing pretty well. She had been taking oral iron, which she says always makes her stools dark in color. She had recently stopped it for a week and stools had turned to normal brown, but she went back on the iron and the stools have been black again. Recently for a few days, she had some diarrhea, was having multiple smaller liquid black bowel movements and then starting a couple of days ago, she began to get quite weak. She was unable to get up from a sitting position and was stuck in her shower for several hours. She is not having any abdominal pain or vomiting. She has been tolerating her diet, but upon presentation here, her hemoglobin is down to 6.2, baseline is around 8. Two units of RBCs have been ordered, but because of multiple antibodies, the blood is coming out from [place] and she has not received transfusion yet. She has been hemodynamically stable. Aside from the anemia, she also has some acute kidney injury with creatinine up to 4.51. INR is 1.6. She has been started on IV pantoprazole. REVIEW OF SYSTEMS: Full review of systems including constitutional, head, eyes, ears, nose, throat, GI, , cardiovascular, respiratory, musculoskeletal, neurologic systems is negative except as noted in the HPI. PAST MEDICAL HISTORY: 1. Hepatocellular carcinoma, recently on chemotherapy with prior chemoembolization, evidently this is progressive per recent November imaging in [place]. 2. History of mitral valve replacement. 3. CHF. 4. Pacemaker placement. 5. Hypertension. 6. Chronic kidney disease. 7. Hysterectomy. 8. Atrial flutter/atrial fibrillation, on chronic anticoagulation with Xarelto. SOCIAL HISTORY: No tobacco or alcohol use. FAMILY HISTORY: Noncontributory. ALLERGIES: PENICILLIN. OUTPATIENT MEDICATIONS: 1. Furosemide. 2. Ferrous sulfate 325 mg daily. 3. Vitamin B12 1000 mcg daily. 4. Vitamin D3 2000 units daily. 5. Coreg. 6. Allopurinol. 7. Zocor. 8. Potassium chloride. 9. Pantoprazole 20 mg daily. 10. Zofran p.r.n. 11. Xarelto 20 mg daily (the patient says she started holding this 4 days ago). PHYSICAL EXAMINATION: VITAL SIGNS: Temperature 96.4, blood pressure 98/35, heart rate 70, 99% oxygen saturation on room air. GENERAL: A very pale 74-year-old woman sitting up in bed comfortably, in no distress. MENTAL: Alert and fully oriented. Pleasant, conversational. SKIN: She is pale, no jaundice. EYES: No scleral icterus. Extraocular movements intact. ENT: Mucous membranes moist. No oral lesions. LYMPH: No submandibular or supraclavicular lymphadenopathy. THYROID: Nontender to palpation. HEART: Irregular rhythm. LUNGS: Clear to auscultation bilaterally. ABDOMEN: Nondistended, bowel sounds present. Soft, nontender to palpation. EXTREMITIES: No peripheral edema. LABORATORY STUDIES: Hemoglobin 6.2, MCV 93.4, WBC 14.3, platelets 256. Sodium 133, potassium 5.6, BUN 90, creatinine 4.51, glucose 152. INR 1.6. Total bilirubin 1.0, alkaline phosphatase 182, AST 337, ALT 126, albumin 2.8. COVID PCR is negative. IMAGING STUDIES: Chest x-ray showed possible 2 cm left perihilar mass. Brain CT shows hypodensity in the right occipital region which may represent artifact or old infarct. ASSESSMENT AND PLAN: 1. Recurrent acute on chronic blood loss anemia. 2. History of recurrent gastrointestinal bleeding, on Xarelto. This presentation is very similar to earlier this year. EGD back in April had shown an area of esophagitis with significant active oozing. Undoubtedly this is related to her ongoing Xarelto use. She is probably having increased toxicity from this in the context of her renal failure. That being said, she has been holding her Xarelto for the past 4 days. Continue to hold this. Agree with plan for transfusion which should occur later today. Agree with the IV PPI. We are going to plan for diagnostic EGD tomorrow to rule out any new upper gastrointestinal pathology that might warrant a change in management. The patient is not willing to consider undergoing colonoscopy and I really do not see how colonoscopy would meter changes records clerk, so we will stick with the plan for EGD only. 3. Hepatocellular carcinoma. She has undergone multiple treatment modalities over the past couple of years including chemoembolization and chemotherapy. Unfortunately, per her report, disease has progressed significantly per most recent imaging in November in [place]. I see that Oncology has been consulted. Overall prognosis is poor. 4. Acute on chronic kidney injury. Nephrology has been consulted. 5. Further recommendations following EGD tomorrow. Please call anytime with questions or concerns. Job ID: [id number]
[2020-01-25] MEDS ORDERED: Lidocaine-Prilocaine 2.5% Cream 5 GM TUBE TOP PRN (13:26)
--- NOTE | 2020-01-25 13:37 | PDOC.HOSPP ---
- Subjective Encounter Date: 01/25/20 Encounter Time: 13:35 Subjective: f/u for acute on chronic anemia receiving 2u PRBC's. Hx of hepatocellular carcinoma receiving chemotherapy. Last PRBC's several months ago and takes FeSO4 regularly. Stopped Xarelto 4 days prior to this admit. - Objective Vital Signs & Weight: Vital Signs (12 hours) Temp Pulse Ox 01/25/20 11:27 96.4 F L 01/25/20 07:30 99 01/25/20 07:28 96.6 F L 01/25/20 02:40 100 Weight Weight 266 lb Most Recent Monitor Data Heart Rate from ECG 72 NIBP 97/34 NIBP BP-Mean 55 Respiration from ECG 27 SpO2 100 I&O: 01/24/20 01/25/20 01/26/20 06:59 06:59 06:59 Intake Total 0 Output Total 15 Balance -15 Result Diagrams: 01/24/20 21:19 01/24/20 21:19 Additional Labs: Microbiology 01/24/20 21:19 Stool - Pending Stool Occult Blood (ALVIN) - Final Laboratory Tests 04/12/19 04/13/19 04/13/19 14:14 03:17 09:32 Hgb 7.5 L Creatinine 2.75 H 2.27 H Total Bilirubin AST ALT Alkaline Phosphatase Creatine Kinase SARS-CoV-2 (PCR) 04/13/19 04/14/19 04/15/19 19:49 03:17 05:25 Hgb 7.4 L 6.8 L 7.5 L Creatinine Total Bilirubin AST ALT Alkaline Phosphatase Creatine Kinase SARS-CoV-2 (PCR) 04/15/19 12/22/19 12/23/19 05:25 04:08 03:27 Hgb 8.0 L 8.6 L Creatinine 1.70 H Total Bilirubin AST ALT Alkaline Phosphatase Creatine Kinase SARS-CoV-2 (PCR) 12/24/19 01/24/20 01/24/20 05:57 21:19 23:33 Hgb 8.5 L Creatinine Total Bilirubin 1.0 AST 337 H ALT 126 H Alkaline Phosphatase 182 H Creatine Kinase 199 H SARS-CoV-2 (PCR) Not Detected Radiology Reviewed by me: Yes (CT brain - no acute process) EKG Reviewed by me: Yes (Tele - Paced in 70's) Hospitalist ROS - Medication Medications: Active Medications Generic Name Dose Route Start Last Admin Trade Name Freq PRN Reason Stop Dose Admin Sodium Chloride 1,000 mls @ 125 mls/hr 01/25/20 10:30 01/25/20 11:05 Normal Saline 0.9% IV 1,000 mls .Q8H CLAY Administration Pantoprazole Sodium 40 mg 01/25/20 09:00 01/25/20 08:31 Pantoprazole 40 Mg Vial IVP 40 mg BID CLAY Administration Sodium Chloride 10 ml 01/25/20 09:00 01/25/20 08:31 Flush - Normal Saline 10 Ml Syringe IVF 10 ml Q12HR CLAY Administration - Exam General Appearance: ill appearing General - other findings: pale, alert, responsive Eye: PERRL, anicteric sclera ENT: normocephalic atraumatic, no oropharyngeal lesions, dry oral mucosa Neck: supple, symmetric, no JVD, no thyromegaly, no lymphadenopathy, no carotid bruit Heart: RRR, no gallops, no rubs, normal peripheral pulses Heart - other findings: S1, S2 Respiratory: CTAB, no wheezes, no rales, no ronchi, normal chest expansion, no tachypnea Gastrointestinal: soft, normal bowel sounds, distended Gastrointestinal - other findings: obese, mild TTP in RUQ Extremities: no cyanosis, no clubbing, 2+ LE edema Skin: normal turgor, no lesions Neurological: cranial nerve grossly intact, no new deficit Musculoskeletal: normal tone, generalized weakness Psychiatric: normal affect, A&O x 3 Hosp A/P (1) Acute on chronic blood loss anemia Code(s): D62 - ACUTE POSTHEMORRHAGIC ANEMIA Status: Acute Plan: Likely due to chronic anticoagulation and prior esophagitis/gastritis, continue Protonix IV BID, GI consult, transfuse 2u PRBC's now, avoid anticoagulation (2) Chronic anticoagulation Code(s): Z79.01 - PIPING DESIGNER (CURRENT) USE OF ANTICOAGULANTS Status: Chronic Plan: Hold Xarelto, see #1 (3) Hyperkalemia Code(s): E87.5 - HYPERKALEMIA Status: Acute Plan: Secondary to GOLDIE, serial K+ monitoring, IVF's (4) GOLDIE (acute kidney injury) Code(s): N17.9 - ACUTE KIDNEY FAILURE, UNSPECIFIED Status: Acute Plan: Multifactorial including blood loss anemia, avoid nephrotoxic meds and limit contrast, serial creatinine, IVF's (5) Hepatocellular carcinoma Code(s): C22.0 - LIVER CELL CARCINOMA Status: Chronic Plan: Resume outpt follow up for chemotherapy (6) Transaminitis Code(s): R74.01 - ELEVATION OF LEVELS OF LIVER TRANSAMINASE LEVELS Status: Chronic Plan: Secondary to HCC, serial monitoring - Plan PT/OT, director social, DVT proph w/SCDs Transfuse 2u PRBC's now Hold all anticoagulation/ASA Plan for EGD in am Continue IVF's Hold all anti-hypertensives AM lab: CMP, CBC
[2020-01-25] MEDS: Carvedilol 3.125 MG TAB PO SCH (15:50)
--- NOTE | 2020-01-25 17:20 | CON ---
DATE OF CONSULTATION: 01/25/2020 REASON FOR CONSULTATION: Upper GI bleeding and symptomatic anemia associated with hepatocellular carcinoma. HISTORY OF PRESENT ILLNESS: The patient is a 74-year-old woman with a several- year history of hepatocellular carcinoma for which she has undergone multiple local/regional and systemic treatment options, most recently immunotherapy. There is apparently recent imaging evidence of progression. She has developed progressive weakness and an episode of anemia with hypotension last month thought secondary to upper gastrointestinal bleeding, which required hospitalization and responded to cauterization of sites in the upper gastrointestinal system as well as transfusion. Prerenal azotemia also improved with volume expansion. Over the past few days, she developed progressive weakness and was ultimately unable to get up from a stool in her home and was brought to the emergency room and found to have significant anemia for which she was admitted for further evaluation. The anemia was associated with black stools, although she ascribes them to oral iron therapy. She has had history of a mitral valve replacement and has been maintained on Xarelto, although she did discontinue anticoagulation a few days ago. Evaluation on admission included a CBC showing a white blood cell count of 14.3 with normal differential except for a slight left shift, hemoglobin 6.2, MCV 93.4, and platelet count 256,000. The INR is 1.6 and PTT 32.3. Chemistries show sodium 133, potassium 5.6, chloride 97, carbon dioxide 22. Creatinine is 4.5 and BUN 50. Liver function studies are markedly abnormal, but little change from previous admissions. At this point, I am asked to provide further management recommendations regarding the underlying malignancy. PAST MEDICAL HISTORY: ALLERGIES: SHE DESCRIBES SENSITIVITIES TO PENICILLIN. MEDICAL ILLNESS: There is a history of congestive heart failure. There is history of rheumatic fever with mitral valvular disease and subsequent mitral valve replacement. She has had shingles in the past. She suffers from type 2 diabetes mellitus, hypercholesterolemia, and hypertension. She has a history of chronic kidney disease. PAST SURGICAL HISTORY: She has undergone hysterectomy and mitral valve replacement. MEDICATIONS: 1. Lisinopril. 2. Coreg. 3. Pantoprazole. 4. Xarelto. 5. Simvastatin. 6. Potassium. 7. Ferrous sulfate. 8. Lasix. 9. D3. 10. Magnesium oxide. 11. Allopurinol. FAMILY HISTORY: The patient had some type of leukemia. SOCIAL HISTORY: She is with one child. She lives with her daughter. She does not use alcohol or tobacco. REVIEW OF SYSTEMS: Her primary complaints are extreme weakness and increasing abdominal girth with lower extremity edema. Her appetite is marginal and she suffers from early satiety. Otherwise, she denies significant cardiopulmonary, GI, , musculoskeletal, or neurological complaints. PHYSICAL EXAMINATION: VITAL SIGNS: Temperature 96.4, blood pressure 97/34, pulse 72 with an irregular rhythm, and respirations 22. GENERAL: The patient is a chronically ill and pale woman, lying flat, in no acute distress. She is alert, oriented, cooperative. HEENT: The extraocular movements are intact. The pupils are equal, round, and reactive to light. NECK: Supple. LUNGS: Clear anteriorly. CARDIOVASCULAR: Rhythm is irregular with multiple extrasystoles or possibly atrial fibrillation. ABDOMEN: Markedly distended with obvious ascites. EXTREMITIES: There is marked edema and anasarca of the abdomen and lower extremity tissues. LYMPH: No adenopathy. MUSCULOSKELETAL: No active arthritis. NEUROLOGIC: No focal findings and the cranial nerves 2 through 12 are grossly intact. LABORATORY DATA: See history of present illness. IMAGING: There was nonspecific density within the perihilar regions and lung bases, possibly secondary to volume overload/pulmonary vascular congestion. A noncontrast brain CT scan shows a vague area of hypodensity within the right occipital region of unclear significance. IMPRESSION: 1. Progressive hepatocellular carcinoma with poor functional status. 2. Recurrent upper gastrointestinal bleeding. 3. Prerenal azotemia. 4. Valvular heart disease, status post mitral valve replacement and atrial fibrillation, maintained on Xarelto. RECOMMENDATIONS: I agree with transfusions as needed and plans for EGD per GI consultation. Hopefully, volume expansion with RBCs and fluids will improve renal function as it did last month when she presented with a similar problem. I doubt this represents hepatorenal or immune-mediated renal injury. I will discuss definitive management of the underlying malignancy with Dr. Valderrama when the patient stabilizes and her medical condition permits. However, she has failed multiple local/regional and systemic treatment options and this is in the setting of progressively poor functional status. Therefore, her prognosis is quite worrisome in this setting. Thank you very much for allowing me to provide more recommendations. Man Johnson MD Job ID: [id number] [facility]
[2020-01-25 20:04] LABS: Hemoglobin 7.3 g/dL (12.0-16.0)
[2020-01-25] MEDS ORDERED: FLU VACC QS2020-21(65YR UP)/PF 240 MCG/0.7 ML SYRINGE IM ONE (21:00)
[2020-01-26 00:28] LABS: Hemoglobin 6.9 g/dL (12.0-16.0)
[2020-01-26] MEDS: Sodium Chloride 0.9% 1,000 ML IV SCH ×3 (03:53→17:14)
[2020-01-26 04:03] LABS: #Lymphocytes 0.8 thou/uL (1.20-3.40); #Monocytes 1.9 thou/uL (0.11-0.59); #Neutrophils 12.7 thou/uL (1.40-6.50); %Basophils 0.1 % (0.0-1.0); %Eosinophils 0.2 % (0.0-10.0); %Lymphocytes 5.1 % (21.0-51.0); %Monocytes 12.5 % (0.0-10.0); %Neutrophils 82.2 % (42.0-75.0); Hemoglobin 6.7 g/dL (12.0-16.0); Mean Corpuscular HGB CONC 32.4 g/dL (32.0-36.0); Mean Corpuscular Hemoglobin 30.7 pg (27.0-31.0); Mean Corpuscular Volume 94.6 fL (78.0-98.0); Mean Platelet Volume 8.5 fL (7.4-10.4); Platelet Count 220 thou/uL (130-400); RBC Distribution Width 16.1 % (11.5-14.5); Red Blood Cell (RBC) Count 2.19 mill/uL (4.20-5.40); White Blood Cell (WBC) Count 15.4 thou/uL (4.8-10.8)
[2020-01-26 04:24] LABS: ALT (SGPT) 100 U/L (8-55); AST (SGOT) 204 U/L (5-34); Albumin 2.7 g/dL (3.4-4.8); Alkaline Phosphatase 193 U/L (40-110); Anion Gap 18 mmol/L (10-20); BUN (Urea Nitrogen) 96 mg/dL (9.8-20.1); Bilirubin, Total 1.1 mg/dL (0.2-1.2); Calc. Creatinine Clearance 18 mL/min (70-130); Calcium 7.5 mg/dL (7.8-10.44); Carbon Dioxide 18 mmol/L (23-31); Chloride 99 mmol/L (98-107); Globulin 2.4 g/dL (2.4-3.5); Glucose 176 mg/dL (83-110); Protein, Total 5.1 g/dL (6.0-8.3); Sodium 129 mmol/L (136-145)
[2020-01-26] MEDS ORDERED: Calcium Chloride 1 GM/10 ML Abboject SYRINGE IVP SCH (08:00)
[2020-01-26] MEDS: cefTRIAXone\\ROCEPHIN 2 GM in Sodium Chloride 0.9% 100 ML IVPB SCH (08:27)
[2020-01-26] MEDS: Pantoprazole 40 MG VIAL IVP SCH ×2 (08:27→22:04)
--- NOTE | 2020-01-26 08:44 | PRG ---
DATE OF SERVICE: 01/26/2020 SUBJECTIVE: Ms. Mejía is 74-year-old white female, who was admitted for symptomatic anemia secondary to a GI bleed. She has received at least 2 units of packed RBC and she is still noted to be anemic this morning. We are following her up for her acute kidney injury that is hemodynamically-mediated renal dysfunction. IV fluid is being given at normal saline 125 mL/hour. She is getting p.r.n. blood transfusion here. Potassium was noted to be mildly elevated at 6.0. The plan is simply to observe her with regard to this. No complaints of chest pain or shortness of breath. OBJECTIVE: VITAL SIGNS: Blood pressure 96/42 with a heart rate of 70, respiratory rate 27, O2 saturation 91%. GENERAL: The patient is awake, alert, comfortable, not in overt distress. SKIN: Adequate turgor. HEENT: Pale conjunctivae. Anicteric sclerae. No neck mass. No carotid bruits. No JVD. CHEST: No deformities. LUNGS: Clear breath sounds. HEART: Irregular. No murmur, no gallops, no rubs. ABDOMEN: Globular, soft, nontender. No masses. EXTREMITIES: No edema. No deformities. MEDICATIONS: Of January 26, 2020, were reviewed. LABORATORY DATA: Laboratories of January 26, 2020: White count 15.4, hemoglobin 6.7. Sodium 129, potassium 6.0, chloride 99, carbon dioxide 18, BUN 96, creatinine 5.03, calcium 7.5, AST 204, ALT 100. ASSESSMENT AND PLAN: 1. Liver carcinoma - on supportive care, off Opdivo. Oncology is following as an outpatient. 2. Acute kidney injury - this is hemodynamically-mediated renal dysfunction. Review of her urine sediment suggested this is a prerenal azotemia. No evidence of acute tubular necrosis. Continue supportive care. Continue to optimize hemodynamics. Continue normal saline at 125 mL/hour. Continue p.r.n. blood transfusion. No indication for an emergent hemodialysis. 3. Borderline/mild hyperkalemia. We will continue to observe this. Recheck basic metabolics at 6 p.m. tonight and in a.m. 4. Anemia. P.r.n. blood transfusion. Job ID: [id number]
--- NOTE | 2020-01-26 10:43 | PRG ---
DATE OF SERVICE: 01/26/2020 SUBJECTIVE: Ms. Mejía is feeling weak, but has no other complaints. She has not had any melena or any bowel movements since yesterday. She has remained hemodynamically stable. Hemoglobin declined further despite transfusion, now down to 6.7. She is going to get two more units of RBCs. She also has worsening hyperkalemia with potassium, now up to 6.0 and Anesthesia has canceled her planned EGD today for this reason. OBJECTIVE: VITAL SIGNS: Temperature 97.4, pulse 70, blood pressure 102/33, and 93% oxygen saturation on 2 L nasal cannula. GENERAL: Very pale, but awake, no distress. HEART: Regular rate and rhythm. LUNGS: Clear to auscultation bilaterally. ABDOMEN: Soft, nontender to palpation. EXTREMITIES: No peripheral edema. LABORATORY STUDIES: Hemoglobin 6.7, WBC 15.4, platelets 220. Sodium 129, potassium 6.0, BUN 96, creatinine 5.03, glucose 176, total bilirubin 1.1, alkaline phosphatase 193, AST 204, ALT 100. COVID PCR negative. ASSESSMENT/PLAN: 1. Recurrent acute on chronic blood loss anemia. 2. History of recurrent gastrointestinal bleeding, on Xarelto. 3. Acute on chronic kidney injury, now with hyperkalemia. The patient has subacute/chronic gastrointestinal bleeding, but no hemodynamically significant bleeding despite continued downtrend in hemoglobin. Anesthesia has canceled her planned EGD for today due to the hyperkalemia, I think this is fine given her hemodynamic stability. We are giving two more units of blood today. The patient may need Kayexalate. We will discuss with the primary service. We can tentatively plan to proceed with EGD tomorrow if laboratory studies and clinical status are more favorable. We will give her a diet today, n.p.o. again after midnight tonight. 4. Hepatocellular carcinoma. Dr. Johnson saw the patient. She normally follows with Dr. Valderrama. Progression of disease despite treatment portends a very poor prognosis overall. Job ID: [id number]
[2020-01-26] MEDS: Cholecalciferol 1,000 UNITS (25 MCG) TAB PO SCH (11:20)
[2020-01-26] MEDS: Ferrous Sulfate 325 MG TAB PO SCH ×2 (11:21→11:25)
[2020-01-26] MEDS: Cyanocobalamin (Vitamin B-12) 1,000 MCG TAB PO SCH (11:21)
[2020-01-26 13:25] LABS: Anion Gap 18 mmol/L (10-20); BUN (Urea Nitrogen) 98 mg/dL (9.8-20.1); Calc. Creatinine Clearance 18 mL/min (70-130); Calcium 8.3 mg/dL (7.8-10.44); Carbon Dioxide 18 mmol/L (23-31); Chloride 100 mmol/L (98-107); Glucose 171 mg/dL (83-110); Potassium 6.1 mmol/L (3.5-5.1); Sodium 130 mmol/L (136-145)
--- NOTE | 2020-01-26 15:35 | PDOC.HOSPP ---
- Subjective Encounter Date: 01/26/20 Encounter Time: 15:30 Subjective: f/u for acute/chronic blood loss anemia s/p 4u PRBC's but persistently low Hgb. Recently d/c Xarelto approx 5 days prior this admit. Initially scheduled for EGD today to investigate anemia but postponed due hyperkalemia. - Objective Vital Signs & Weight: Vital Signs (12 hours) Temp Pulse Resp BP Pulse Ox 01/26/20 15:26 97.5 F L 01/26/20 11:55 97.3 F L 70 18 105/29 L 95 01/26/20 11:09 97.4 F L 01/26/20 11:07 97.2 F L 71 20 105/29 L 93 L 01/26/20 09:25 97.1 F L 70 20 87/34 L 92 L 01/26/20 09:10 97.4 F L 70 20 102/33 L 93 L 01/26/20 08:00 94 L 01/26/20 07:18 97.2 F L 01/26/20 04:00 97 F L Weight Weight 266 lb Most Recent Monitor Data Heart Rate from ECG 70 NIBP 102/37 NIBP BP-Mean 58 Respiration from ECG 24 SpO2 95 I&O: 01/25/20 01/26/20 01/27/20 06:59 06:59 06:59 Intake Total 3300 350 Output Total 30 Balance 3270 350 Result Diagrams: 01/26/20 03:44 01/26/20 12:48 Additional Labs: Microbiology 01/24/20 21:19 Stool - Pending Stool Occult Blood (ALVIN) - Final Laboratory Tests 04/12/19 04/13/19 04/13/19 14:14 03:17 09:32 Hgb 7.5 L Potassium BUN Creatinine 2.75 H 2.27 H Total Bilirubin AST ALT Alkaline Phosphatase Creatine Kinase SARS-CoV-2 (PCR) 04/13/19 04/14/19 04/15/19 19:49 03:17 05:25 Hgb 7.4 L 6.8 L 7.5 L Potassium BUN Creatinine Total Bilirubin AST ALT Alkaline Phosphatase Creatine Kinase SARS-CoV-2 (PCR) 04/15/19 12/22/19 12/23/19 05:25 04:08 03:27 Hgb 8.0 L 8.6 L Potassium BUN Creatinine 1.70 H Total Bilirubin AST ALT Alkaline Phosphatase Creatine Kinase SARS-CoV-2 (PCR) 12/24/19 01/24/20 01/24/20 05:57 21:19 23:33 Hgb 8.5 L Potassium 5.6 H BUN 90 H Creatinine 4.51 H Total Bilirubin 1.0 AST 337 H ALT 126 H Alkaline Phosphatase 182 H Creatine Kinase 199 H SARS-CoV-2 (PCR) Not Detected 01/26/20 03:44 Hgb Potassium 6.0 H BUN 96 H Creatinine 5.03 H Total Bilirubin AST 204 H ALT 100 H Alkaline Phosphatase 193 H Creatine Kinase SARS-CoV-2 (PCR) EKG Reviewed by me: Yes (Tele - Paced) Hospitalist ROS - Medication Medications: Active Medications Generic Name Dose Route Start Last Admin Trade Name Freq PRN Reason Stop Dose Admin Carvedilol 3.125 mg 01/25/20 17:00 01/25/20 15:50 Carvedilol 3.125 Mg Tab PO Not Given BID-WM CLAY Cholecalciferol 2,000 units 01/26/20 09:00 01/26/20 11:20 Cholecalciferol 1,000 Units (25 Mcg) Tab PO 2,000 units DAILY CLAY Administration Cyanocobalamin 1,000 mcg 01/26/20 09:00 01/26/20 11:21 Cyanocobalamin (Vitamin B-12) 1,000 Mcg Tab PO 1,000 mcg DAILY CLAY Administration Ferrous Sulfate 325 mg 01/26/20 09:00 01/26/20 11:25 Ferrous Sulfate 325 Mg Tab PO Not Given DAILY CLAY Sodium Chloride 1,000 mls @ 125 mls/hr 01/25/20 10:30 01/26/20 04:59 Normal Saline 0.9% IV 1,000 mls .Q8H CLAY Administration Ceftriaxone Sodium 2 gm/ 100 mls @ 200 mls/hr 01/26/20 08:00 01/26/20 08:27 Sodium Chloride IVPB 100 mls Q24HR CLAY Administration Pantoprazole Sodium 40 mg 01/25/20 09:00 01/26/20 08:27 Pantoprazole 40 Mg Vial IVP 40 mg BID CLAY Administration Sodium Chloride 10 ml 01/25/20 09:00 01/26/20 07:31 Flush - Normal Saline 10 Ml Syringe IVF Not Given Q12HR CLAY - Exam General Appearance: ill appearing General - other findings: pale, responsive to questions Eye: PERRL, anicteric sclera ENT: normocephalic atraumatic, no oropharyngeal lesions Neck: supple, symmetric, no JVD, no thyromegaly, no lymphadenopathy Heart: RRR, no gallops, no rubs, normal peripheral pulses Heart - other findings: S1, S2 Respiratory - other findings: diminished in bases, few basilar coarse sounds Gastrointestinal: soft, non-tender, non-distended, normal bowel sounds, no palpable masses Extremities: no cyanosis, no clubbing, 2+ LE edema Skin: normal turgor Neurological: cranial nerve grossly intact, no new deficit Musculoskeletal: normal tone, generalized weakness Psychiatric: A&O x 3, somnolent, lethargic Hosp A/P (1) Acute on chronic blood loss anemia Code(s): D62 - ACUTE POSTHEMORRHAGIC ANEMIA Status: Acute Plan: s/p 3u PRBC's, serial H/H, avoid anticoagulate, plan for EGD when electrolytes more stable (2) Chronic anticoagulation Code(s): Z79.01 - SAW EDGE FUSER CIRCULAR (CURRENT) USE OF ANTICOAGULANTS Status: Chronic Plan: Hold Xarelto (3) Hyperkalemia Code(s): E87.5 - HYPERKALEMIA Status: Acute Plan: Persistent, add Kayexalate 30gm po now then q4h PRN (4) GOLDIE (acute kidney injury) Code(s): N17.9 - ACUTE KIDNEY FAILURE, UNSPECIFIED Status: Acute Plan: Worsening, likley volume mediated, continue IVF's, avoid nephrotoxi meds and limit contrast exposure (5) Hepatocellular carcinoma Code(s): C22.0 - LIVER CELL CARCINOMA Status: Chronic Plan: Outpt follow with medical oncology, likely end-stage process, consider Pallia tive care consult, ? hospice (6) Transaminitis Code(s): R74.01 - ELEVATION OF LEVELS OF LIVER TRANSAMINASE LEVELS Status: Chronic - Plan continue antibiotics, PT/OT, social services counselor, DVT proph w/SCDs Consults: Palliative Care s/p Transfusion 4u PRBC's total now Hold all anticoagulation/ASA Plan for EGD in am Continue IVF's Hold all anti-hypertensives Kayexalate 30gm po q4h Consider Palliative care consult in am AM lab: CMP, CBC
[2020-01-26 16:43] LABS: Hemoglobin 8.5 g/dL (12.0-16.0)
[2020-01-26] MEDS ORDERED: Sodium Chloride 0.9% 500 ML IV SCH (18:30)
[2020-01-26] MEDS: Ondansetron PF 4 MG/2 ML Vial IVP PRN (21:44)
[2020-01-27] MEDS: Sodium Chloride 0.9% 1,000 ML IV SCH (03:34)
[2020-01-27] MEDS: Ondansetron PF 4 MG/2 ML Vial IVP PRN (03:34)
[2020-01-27] MEDS ORDERED: Furosemide 100 MG/10 ML VIAL SLOW IVP SCH ×2 (06:45→07:15)
[2020-01-27 06:57] LABS: ALT (SGPT) 74 U/L (8-55); AST (SGOT) 100 U/L (5-34); Albumin 2.7 g/dL (3.4-4.8); Alkaline Phosphatase 240 U/L (40-110); Anion Gap 20 mmol/L (10-20); BUN (Urea Nitrogen) 100 mg/dL (9.8-20.1); Bilirubin, Total 1.2 mg/dL (0.2-1.2); Calc. Creatinine Clearance 18 mL/min (70-130); Calcium 7.5 mg/dL (7.8-10.44); Carbon Dioxide 16 mmol/L (23-31); Chloride 103 mmol/L (98-107); Globulin 2.6 g/dL (2.4-3.5); Glucose 190 mg/dL (83-110); Potassium 5.8 mmol/L (3.5-5.1); Protein, Total 5.3 g/dL (6.0-8.3); Sodium 133 mmol/L (136-145)
--- NOTE | 2020-01-27 07:52 | PRG ---
DATE OF SERVICE: 01/27/2020 SUBJECTIVE: Ms. Mejía is a 74-year-old white female with known history of liver cancer, admitted for GI bleed. The patient has been seen by GI and the plan is for her to undergo upper GI endoscopy. We are seeing this patient for acute kidney injury on top of her chronic renal failure. We feel that she had superimposed hemodynamically-mediated renal dysfunction due to the GI bleed as well as low blood pressure. In the last 24 to 48 hours, urine output still noted to be markedly decreased. For that reason, we have ordered a one-time dose of Lasix 80 mg IV x1 dose. She has also received Kayexalate for the mild hyperkalemia. No complaints of chest pain or shortness of breath. OBJECTIVE: VITAL SIGNS: Blood pressure 115/47, heart rate is 70, respiratory rate 17, O2 saturation 93%. GENERAL: The patient is noted to be awake, alert, comfortable, not in overt distress. SKIN: Adequate turgor. HEENT: Slightly pale conjunctivae. Anicteric sclerae. NECK: No neck mass. No carotid bruits. No JVD. CHEST: No deformities. LUNGS: Clear breath sounds. No wheezing. No crackles. HEART: Normal sinus rhythm. No murmurs, gallops, or rubs. ABDOMEN: Globular, soft, nontender. No masses. EXTREMITIES: Positive for edema. MEDICATIONS: Medications of January 27, 2020, reviewed. LABORATORY DATA: Laboratories from January 27, 2020; sodium 133, potassium 5.8, chloride 103, carbon dioxide 16, BUN 100, creatinine 5.52, GFR 8 mL/minute, calcium 7.5, AST 100, ALT 74, albumin 2.7. January 26, 2020; hemoglobin is 8.5, hematocrit 25.7. ASSESSMENT AND PLAN: 1. Anemia secondary to GI bleed. For upper GI endoscopy, p.r.n. blood transfusion. Hold anticoagulation. 2. Acute kidney injury on top of her chronic renal failure, superimposed prerenal azotemia. Continue gentle volume repletion. Please note, the patient's urine output is markedly decreased. We will discontinue normal saline. Consider starting her on albumin infusion 25 g IV q.6. Lasix 80 mg x1 dose was given. No indication for any emergent hemodialysis. 3. Mild hyperkalemia, slightly improved. One time dose of Lasix given. Kayexalate was ordered, but she declined the second dose. We will re-evaluate this patient tomorrow for need for dialysis. 4. GI bleed-for upper GI endoscopy. Recheck CBC, basic metabolic panel in a.m. Job ID: [id number]
[2020-01-27 07:58] LABS: Hemoglobin 8.6 g/dL (12.0-16.0); Mean Corpuscular HGB CONC 29.7 g/dL (32.0-36.0); Mean Corpuscular Hemoglobin 27.7 pg (27.0-31.0); Mean Corpuscular Volume 93.3 fL (78.0-98.0); RBC Distribution Width 15.9 % (11.5-14.5); Red Blood Cell (RBC) Count 3.11 mill/uL (4.20-5.40)
[2020-01-27 09:08] LABS: Anisocytosis SLIGHT = 6-15 cells (100X) (0-5/hpf); Band 2 % (5-11); Hypersemented Neutrophil SLIGHT; Large Platelets SLIGHT; Lymphocytes 3 % (21-51); MDiff Complete? YES; Mean Platelet Volume 8.9 fL (7.4-10.4); Monocytes 18 % (0-10); Neutrophil 77 % (42-75); Platelet Count 155 thou/uL (130-400); Platelet Morphology Comment Appears Adequate; Polychromasia SLIGHT = 2-3 cells (100X) (0-2/hpf); White Blood Cell (WBC) Count 14.1 thou/uL (4.8-10.8)
[2020-01-27] MEDS: Pantoprazole 40 MG VIAL IVP SCH ×2 (09:36→21:04)
[2020-01-27] MEDS: Albumin 25% 25 GM/100 ML BOT IVPB SCH ×3 (09:36→21:03)
[2020-01-27] MEDS: cefTRIAXone\\ROCEPHIN 2 GM in Sodium Chloride 0.9% 100 ML IVPB SCH (09:36)
--- NOTE | 2020-01-27 09:54 | PDOC.HOSPP ---
- Subjective Encounter Date: 01/27/20 Encounter Time: 11:00 Subjective: Patient fatigued, but no specific complaints. - Objective Vital Signs & Weight: Vital Signs (12 hours) Temp Pulse Resp BP Pulse Ox 01/27/20 07:09 96.7 F L 01/27/20 06:35 70 23 H 105/45 L 94 L 01/27/20 04:18 98.3 F 01/26/20 23:34 97.8 F Weight Weight 285 lb 1.6 oz Most Recent Monitor Data Heart Rate from ECG 70 NIBP 115/47 NIBP BP-Mean 69 Respiration from ECG 17 SpO2 93 I&O: 01/26/20 01/27/20 01/28/20 06:59 06:59 06:59 Intake Total 3300 4522 215 Output Total 75 57 Balance 3225 4465 215 Result Diagrams: 01/27/20 07:36 01/27/20 06:29 Hospitalist ROS - Review of Systems Constitutional: denies: fever, chills Respiratory: denies: cough, shortness of breath Cardiovascular: denies: chest pain, palpitations Gastrointestinal: denies: nausea, vomiting, abdominal pain - Medication Medications: Active Medications Generic Name Dose Route Start Last Admin Trade Name Freq PRN Reason Stop Dose Admin Carvedilol 3.125 mg 01/25/20 17:00 01/25/20 15:50 Carvedilol 3.125 Mg Tab PO Not Given BID- CLAY Cholecalciferol 2,000 units 01/26/20 09:00 01/26/20 11:20 Cholecalciferol 1,000 Units (25 Mcg) Tab PO 2,000 units DAILY CLAY Administration Cyanocobalamin 1,000 mcg 01/26/20 09:00 01/26/20 11:21 Cyanocobalamin (Vitamin B-12) 1,000 Mcg Tab PO 1,000 mcg DAILY CLAY Administration Ferrous Sulfate 325 mg 01/26/20 09:00 01/26/20 11:25 Ferrous Sulfate 325 Mg Tab PO Not Given DAILY CLAY Ceftriaxone Sodium 2 gm/ 100 mls @ 200 mls/hr 01/26/20 08:00 01/26/20 08:27 Sodium Chloride IVPB 100 mls Q24HR CLAY Administration Ondansetron HCl 4 mg 01/26/20 17:41 01/27/20 03:34 Ondansetron Pf 4 Mg/2 Ml Vial IVP 4 mg Q6H PRN Administration Nausea/Vomiting Pantoprazole Sodium 40 mg 01/25/20 09:00 01/26/20 22:04 Pantoprazole 40 Mg Vial IVP 40 mg BID CLAY Administration Sodium Chloride 10 ml 01/25/20 09:00 01/26/20 22:05 Flush - Normal Saline 10 Ml Syringe IVF 10 ml Q12HR CLAY Administration Sodium Polystyrene Sulfonate 30 gm 01/26/20 20:00 01/27/20 04:12 Sodium Polystyrene Sulfonate 15 Gm/60 Ml Bot PO Not Given Q4H CLAY - Exam General Appearance: NAD General - other findings: sleepy ENT: moist mucosa Heart: RRR, no murmur, no gallops, no rubs Respiratory: CTAB, no wheezes, no rales, no ronchi Gastrointestinal: soft, normal bowel sounds, distended Extremities: 2+ LE edema Psychiatric: normal affect, normal behavior, lethargic Hosp A/P - Plan (1) Acute on chronic blood loss anemia Code(s): D62 - ACUTE POSTHEMORRHAGIC ANEMIA Status: Acute Plan: s/p 4u PRBC's, serial H/H, avoid anticoagulation, plan for EGD when electrolytes more stable (2) Chronic anticoagulation Code(s): Z79.01 - JAIL (CURRENT) USE OF ANTICOAGULANTS Status: Chronic Plan: Hold Xarelto (3) Hyperkalemia Code(s): E87.5 - HYPERKALEMIA Status: Acute Plan: Persistent, add Kayexalate 30gm po yesterday, patient declined second dose, mild improvement today, Dr. Will trying Lasix (4) GOLDIE (acute kidney injury) Code(s): N17.9 - ACUTE KIDNEY FAILURE, UNSPECIFIED Status: Acute Plan: Worsening, likley volume mediated, continue IVF's, avoid nephrotoxi meds and limit contrast exposure, Dr. Will trying dose of Lasix (5) Hepatocellular carcinoma Code(s): C22.0 - LIVER CELL CARCINOMA Status: Chronic Plan: Outpt follow with medical oncology, likely end-stage process, consider Palliative care consult, ? hospice (6) Transaminitis Code(s): R74.01 - ELEVATION OF LEVELS OF LIVER TRANSAMINASE LEVELS Status: Chronic - Plan continue antibiotics, PT/OT, social insurance specialist, DVT proph w/SCDs Consults: Palliative Care s/p Transfusion 4u PRBC's total now Hold all anticoagulation/ASA Plan for EGD when anesthesia ok with the potassium levels Continue IVF's Hold all anti-hypertensives Kayexalate 30gm po q4h Palliative care consult- patient appropriate for hospice given progression of cancer. AM lab: CMP, CBC
[2020-01-27 11:33] VITALS: BMI 50.5
[2020-01-27] MEDS: Ferrous Sulfate 325 MG TAB PO SCH (11:54)
[2020-01-27] MEDS: Cholecalciferol 1,000 UNITS (25 MCG) TAB PO SCH (11:54)
[2020-01-27] MEDS: Cyanocobalamin (Vitamin B-12) 1,000 MCG TAB PO SCH (11:54)
[2020-01-27] MEDS ORDERED: PROPOFOL 20 ML ONE (12:10)
[2020-01-27] MEDS ORDERED: Ketamine 50 MG/ML (10ML VIAL) ONE (12:10)
[2020-01-27] MEDS ORDERED: PHENYLEPHRINE-NS 100 MCG/ML 10 ML SYRINGE ONE (12:47)
[2020-01-27] MEDS ORDERED: ePHEDrine 50 MG/ML VIAL ONE (12:47)
[2020-01-27] MEDS ORDERED: Ondansetron HCl/PF 4 MG/2 ML Vial IVP PRN (12:51)
[2020-01-27] MEDS ORDERED: Promethazine HCl 25 MG/ML VIAL IM PRN (12:51)
[2020-01-27] MEDS ORDERED: Promethazine HCl 25 MG/ML VIAL SLOW IVP PRN (12:51)
--- NOTE | 2020-01-27 13:07 | OP ---
DATE OF PROCEDURE: 01/27/2020 CELLULOID TRIMMER SURGEON: None. PROCEDURE PERFORMED: EGD, diagnostic. INDICATION FOR PROCEDURE: 1. Acute on chronic blood-loss anemia. 2. Hepatocellular carcinoma, progressive despite chemotherapy. 3. Acute on chronic renal failure. MEDICATIONS: See Anesthesia record. FINDINGS: After discussion of the risks, benefits, and alternatives of the procedure, informed consent was obtained and witnessed. Pre-endoscopic cardiopulmonary examination was satisfactory. Time-out was performed before sedation was achieved. Sedation was achieved with Anesthesia assistance in the endoscopy unit. A Pentax adult upper endoscope was placed into the oropharynx and passed through the cricopharyngeus under direct visualization. The esophageal mucosa appeared normal throughout with a normal-appearing Z-line. The endoscope was advanced into the stomach. There was a small hiatal hernia, but no evidence of any Carter erosion or ulceration. There was no evidence of any old blood or active bleeding throughout the stomach. The gastric mucosa appeared normal. No bleeding lesions. The endoscope was advanced through the pylorus and then into the first and second portions of the duodenum, which also appeared normal. The upper endoscope was completely withdrawn and the patient allowed to recover. The patient tolerated the procedure well. There were no immediate postprocedure complications. IMPRESSION: 1. Small hiatal hernia. 2. Otherwise, normal EGD. RECOMMENDATIONS: 1. Advance diet. 2. No plan for colonoscopy or any repeat EGD. 3. Iron supplementation can be resumed if the patient tolerates. 4. Consider stopping anticoagulation altogether, in light of recurrent bleeding episodes on Xarelto, and now particularly in light of progressive renal failure and progression of hepatocellular carcinoma. 5. Agree with palliative care evaluation. Given the progression of all the above comorbidities, she would be a good candidate for hospice care. Job ID: [id number]
[2020-01-27] MEDS: Carvedilol 3.125 MG TAB PO SCH (17:37)
[2020-01-28] MEDS: Albumin 25% 25 GM/100 ML BOT IVPB SCH (02:10)
[2020-01-28 04:03] LABS: ALT (SGPT) 50 U/L (8-55); AST (SGOT) 56 U/L (5-34); Albumin 3.7 g/dL (3.4-4.8); Alkaline Phosphatase 198 U/L (40-110); Anion Gap 23 mmol/L (10-20); BUN (Urea Nitrogen) 103 mg/dL (9.8-20.1); Bilirubin, Total 0.9 mg/dL (0.2-1.2); Calc. Creatinine Clearance 17 mL/min (70-130); Calcium 7.9 mg/dL (7.8-10.44); Carbon Dioxide 15 mmol/L (23-31); Chloride 103 mmol/L (98-107); Globulin 2.5 g/dL (2.4-3.5); Glucose 169 mg/dL (83-110); Potassium 6.5 mmol/L (3.5-5.1); Protein, Total 6.2 g/dL (6.0-8.3); Sodium 134 mmol/L (136-145)
[2020-01-28 04:48] LABS: #Lymphocytes 0.7 thou/uL (1.20-3.40); #Monocytes 1.3 thou/uL (0.11-0.59); #Neutrophils 9.2 thou/uL (1.40-6.50); %Eosinophils 0.4 % (0.0-10.0); %Lymphocytes 6.2 % (21.0-51.0); %Monocytes 11.3 % (0.0-10.0); %Neutrophils 82.1 % (42.0-75.0); Hemoglobin 7.2 g/dL (12.0-16.0); Mean Corpuscular HGB CONC 32.3 g/dL (32.0-36.0); Mean Corpuscular Hemoglobin 30.3 pg (27.0-31.0); Mean Corpuscular Volume 93.9 fL (78.0-98.0); Mean Platelet Volume 8.5 fL (7.4-10.4); Platelet Count 156 thou/uL (130-400); RBC Distribution Width 15.8 % (11.5-14.5); Red Blood Cell (RBC) Count 2.38 mill/uL (4.20-5.40); White Blood Cell (WBC) Count 11.3 thou/uL (4.8-10.8)
[2020-01-28 05:38] LABS: Band 6 % (5-11); Lymphocytes 6 % (21-51); MDiff Complete? YES; Monocytes 5 % (0-10); Neutrophil 83 % (42-75); Nucleated RBC 1 % (0); Platelet Morphology Comment Appears Adequate; RBC Morphology Normal
--- NOTE | 2020-01-28 09:24 | PDOC.HOSPP ---
- Subjective Encounter Date: 01/28/20 Encounter Time: 09:15 Subjective: f/u for suspected GI bleed with acute/chronic blood loss anemia s/p 4u PRBC's and negative EGD 01/27/20. Worsening renal failure and anuric currently. - Objective Vital Signs & Weight: Vital Signs (12 hours) Temp Pulse Ox 01/28/20 08:00 93 L 01/28/20 07:11 97.0 F L 01/28/20 04:11 99.6 F 01/27/20 23:37 97.6 F Weight Admit Weight 285 lb Weight 288 lb 3.2 oz Most Recent Monitor Data Heart Rate from ECG 73 NIBP 94/45 NIBP BP-Mean 61 Respiration from ECG 31 SpO2 99 I&O: 01/27/20 01/28/20 01/29/20 06:59 06:59 06:59 Intake Total 4522 715 Output Total 57 50 Balance 4465 665 Result Diagrams: 01/28/20 04:30 01/28/20 03:37 Additional Labs: Microbiology 01/27/20 03:43 Stool Stool Occult Blood (ALVIN) - Final 01/24/20 21:19 Stool - Pending Stool Occult Blood (ALVIN) - Final Laboratory Tests 04/12/19 04/13/19 04/13/19 14:14 03:17 09:32 Hgb 7.5 L Potassium BUN Creatinine 2.75 H 2.27 H Total Bilirubin AST ALT Alkaline Phosphatase Creatine Kinase SARS-CoV-2 (PCR) 04/13/19 04/14/19 04/15/19 19:49 03:17 05:25 Hgb 7.4 L 6.8 L 7.5 L Potassium BUN Creatinine Total Bilirubin AST ALT Alkaline Phosphatase Creatine Kinase SARS-CoV-2 (PCR) 04/15/19 12/22/19 12/23/19 05:25 04:08 03:27 Hgb 8.0 L 8.6 L Potassium BUN Creatinine 1.70 H Total Bilirubin AST ALT Alkaline Phosphatase Creatine Kinase SARS-CoV-2 (PCR) 12/24/19 01/24/20 01/24/20 05:57 21:19 23:33 Hgb 8.5 L Potassium 5.6 H BUN 90 H Creatinine 4.51 H Total Bilirubin 1.0 AST 337 H ALT 126 H Alkaline Phosphatase 182 H Creatine Kinase 199 H SARS-CoV-2 (PCR) Not Detected 01/26/20 01/26/20 01/27/20 03:44 12:48 06:29 Hgb Potassium 6.0 H 6.1 H 5.8 H BUN 96 H 98 H 100 H Creatinine 5.03 H 5.23 H 5.52 H Total Bilirubin AST 204 H ALT 100 H Alkaline Phosphatase 193 H Creatine Kinase SARS-CoV-2 (PCR) Radiology Reviewed by me: Yes (EGD 01/27/20 - negative, small hiatal hernia) EKG Reviewed by me: Yes (Tele - Paced) Hospitalist ROS - Medication Medications: Active Medications Generic Name Dose Route Start Last Admin Trade Name Freq PRN Reason Stop Dose Admin Carvedilol 3.125 mg 01/25/20 17:00 01/27/20 17:37 Carvedilol 3.125 Mg Tab PO Not Given BID-[facility] Cholecalciferol 2,000 units 01/26/20 09:00 01/27/20 11:54 Cholecalciferol 1,000 Units (25 Mcg) Tab PO Not Given DAILY CLAY Cyanocobalamin 1,000 mcg 01/26/20 09:00 01/27/20 11:54 Cyanocobalamin (Vitamin B-12) 1,000 Mcg Tab PO Not Given DAILY CLAY Ferrous Sulfate 325 mg 01/26/20 09:00 01/27/20 11:54 Ferrous Sulfate 325 Mg Tab PO Not Given DAILY CLAY Ceftriaxone Sodium 2 gm/ 100 mls @ 200 mls/hr 01/26/20 08:00 01/27/20 09:36 Sodium Chloride IVPB 100 mls Q24HR CLAY Administration Ondansetron HCl 4 mg 01/26/20 17:41 01/27/20 03:34 Ondansetron Pf 4 Mg/2 Ml Vial IVP 4 mg Q6H PRN Administration Nausea/Vomiting Pantoprazole Sodium 40 mg 01/25/20 09:00 01/27/20 21:04 Pantoprazole 40 Mg Vial IVP 40 mg BID CLAY Administration Sodium Chloride 10 ml 01/25/20 09:00 01/27/20 21:03 Flush - Normal Saline 10 Ml Syringe IVF 10 ml Q12HR CLAY Administration Sodium Chloride 10 ml 01/25/20 02:34 01/28/20 02:11 Flush - Normal Saline 10 Ml Syringe IVF 10 ml PRN PRN Administration Saline Flush Sodium Polystyrene Sulfonate 30 gm 01/26/20 20:00 01/28/20 05:43 Sodium Polystyrene Sulfonate 15 Gm/60 Ml Bot PO Not Given Q4H CLAY - Exam General Appearance: ill appearing General - other findings: lethargic, minimally responsive Eye: PERRL, anicteric sclera ENT: normocephalic atraumatic, no oropharyngeal lesions, dry oral mucosa Neck: supple, symmetric, no JVD, no thyromegaly, no lymphadenopathy Heart: RRR, no gallops, no rubs, normal peripheral pulses Respiratory: no wheezes, no ronchi, tachypneic Respiratory - other findings: diminished in bases Gastrointestinal: normal bowel sounds, no palpable masses, no guarding, no rigidity Gastrointestinal - other findings: obese, mild distention Extremities: no cyanosis, 2+ LE edema Skin: normal turgor Neurological - other findings: minimal response to questions Musculoskeletal: generalized weakness Psychiatric: oriented to person, flat affect, somnolent, lethargic Hosp A/P (1) Acute on chronic blood loss anemia Code(s): D62 - ACUTE POSTHEMORRHAGIC ANEMIA Status: Acute (2) GOLDIE (acute kidney injury) Code(s): N17.9 - ACUTE KIDNEY FAILURE, UNSPECIFIED Status: Acute Plan: Worsening renal failure, likely end-stage process, ? consideration for HD vs palliative measures given advanced HCC (3) Hyperkalemia Code(s): E87.5 - HYPERKALEMIA Status: Acute Plan: Progressive despite medical interventions, appears end-stage, considering HD but likely needs hospice given advanced Hepatocellular carcinoma, Kayexalate and Lasix unsuccessful (4) Chronic anticoagulation Code(s): Z79.01 - [facility] (CURRENT) USE OF ANTICOAGULANTS Status: Chronic (5) Hepatocellular carcinoma Code(s): C22.0 - LIVER CELL CARCINOMA Status: Chronic Plan: Advanced and end-stage, progressive process despite chemotherapy (6) Transaminitis Code(s): R74.01 - ELEVATION OF LEVELS OF LIVER TRANSAMINASE LEVELS Status: Chronic Plan: Improved, serial monitoring - Plan plan discussed w/ family, continue antibiotics, manager social, DVT proph w/SCDs Consults: Hospice s/p Transfusion 4u PRBC's total Hold all anticoagulation/ASA Hold all anti-hypertensives Kayexalate 30gm po q4h Discussed with daughter regarding clinical decline and likely end-stage condition, daughter would like her comfort care and DNAR, no hemodialysis or aggressive interventions
[2020-01-28] MEDS: Cholecalciferol 1,000 UNITS (25 MCG) TAB PO SCH (09:42)
[2020-01-28] MEDS: Cyanocobalamin (Vitamin B-12) 1,000 MCG TAB PO SCH (09:42)
[2020-01-28] MEDS: Carvedilol 3.125 MG TAB PO SCH (09:42)
[2020-01-28] MEDS: cefTRIAXone\\ROCEPHIN 2 GM in Sodium Chloride 0.9% 100 ML IVPB SCH (09:42)
[2020-01-28] MEDS: Pantoprazole 40 MG VIAL IVP SCH ×2 (09:43→20:06)
[2020-01-28] MEDS: Ferrous Sulfate 325 MG TAB PO SCH (09:43)
--- NOTE | 2020-01-28 09:56 | PDOC.FMACP ---
Advance Care Planning - Problem (1) Acute on chronic blood loss anemia Status: Acute Code(s): D62 - ACUTE POSTHEMORRHAGIC ANEMIA (2) GOLDIE (acute kidney injury) Status: Acute Code(s): N17.9 - ACUTE KIDNEY FAILURE, UNSPECIFIED (3) Hyperkalemia Status: Acute Code(s): E87.5 - HYPERKALEMIA (4) Chronic anticoagulation Status: Chronic Code(s): Z79.01 - [facility] (CURRENT) USE OF ANTICOAGULANTS (5) Hepatocellular carcinoma Status: Chronic Code(s): C22.0 - LIVER CELL CARCINOMA (6) Transaminitis Status: Chronic Code(s): R74.01 - ELEVATION OF LEVELS OF LIVER TRANSAMINASE LEVELS - Note Participants: surrogate decision-maker Summary: Advanced Care Planning was discussed. The diagnosis, prognosis and goals of care were discussed. Appropriate forms and documentation to accomplish the goals of care were discussed. All questions were answered. The Palliative Care Team will be engaged to assist with completion of any outstanding forms that are needed. Spoke with Mercedez(pt's daughter) discussing end-stage condition of her mother. Despite all efforts and interventions her mother has continued to decline. The daughter would like her mother kept comfortable, no resuscitation or aggressive interventions or hemodialysis. Will discuss hospice options once the daughter arrives to the hospital. Time Spent (mins): 18
--- NOTE | 2020-01-28 11:42 | PRG ---
DATE OF SERVICE: 01/28/2020 SUBJECTIVE: Ms. Mejía is a 74-year-old white female with known history of liver cancer, admitted for GI bleed. We are seeing this patient for her acute kidney injury. Initially, we felt that this was hemodynamically-mediated renal dysfunction as suggested by her history and urine sediment. However, renal function in spite of IV hydration continues to worsen. Possibility of a superimposed acute tubular necrosis remains. Her potassium was noted to be high at 6.5 and the creatinine is now at 5.9. Discussion about dialysis was made. The patient's daughter declined to proceed with anything invasive. They would like to consider hospice. OBJECTIVE: VITAL SIGNS: Blood pressure is 94/45, heart rate is noted at 73, respiratory rate 31, O2 saturation 99%. GENERAL: The patient is awake, lethargic, not in overt distress. SKIN: Adequate turgor. HEENT: Slightly pale conjunctivae. Anicteric sclerae. NECK: No neck mass. No carotid bruits. No JVD. CHEST: No deformities. LUNGS: Decreased breath sounds. HEART: Normal sinus rhythm. No murmur. No gallops. No rubs. ABDOMEN: Globular, soft, nontender. No masses. EXTREMITIES: Positive for edema. MEDICATIONS: Medications of January 28, 2020, was reviewed. LABORATORY DATA: Laboratories of January 28, 2020; white count 11.3, hemoglobin 7.2. Sodium 134, potassium 6.5, chloride 103, carbon dioxide 15, BUN 103, creatinine 5.94, GFR 7 mL/minute. AST 56, ALT 50, albumin 3.7. ASSESSMENT AND PLAN: Acute kidney injury over chronic renal failure-initially this was felt to be a hemodynamically-mediated renal dysfunction. However, in spite of volume repletion-normal saline and albumin, the patient's renal function continue to worsen. Possibility of acute tubular necrosis remains. The family, daughter, declined to proceed with any dialytic intervention. They are considering hospice. I feel that hospice care for the patient is appropriate. Job ID: [id number]
--- NOTE | 2020-01-28 13:07 | PRG ---
DATE OF SERVICE: 01/28/2020 SUBJECTIVE: Ms. Mejía has become anuric. Mental status has deteriorated. She is now somnolent and not easily arousable. Decision has been made to make the patient DNAR status and move toward palliative care only for goals of care. OBJECTIVE: VITAL SIGNS: Temperature 97, pulse 70, blood pressure 90/43, 95% oxygen saturation on room air. GENERAL: No acute distress. Somnolent, arouses to voice, but no meaningful communication. SKIN: Very pale. HEART: Regular rate and rhythm. LUNGS: Clear to auscultation bilaterally. ABDOMEN: Nondistended. EXTREMITIES: No peripheral edema. LABORATORY STUDIES: WBC 11.3, hemoglobin down to 7.2, platelets 156. Sodium 134, potassium 6.5, BUN 103, creatinine 5.94. ASSESSMENT AND PLAN: 1. Acute on chronic blood loss anemia, multifactorial. Esophagogastroduodenoscopy yesterday was essentially negative for source of bleeding. She is not a good candidate for further endoscopy. I have discussed this with the patient's daughter who was in agreement. 2. Hepatocellular carcinoma, progressive despite aggressive treatment over the past year. 3. Renal failure, now with significant hyperkalemia and anuria. I had a discussion with the patient's daughter today. They are going to pursue hospice care, which I feel is appropriate. GI is going to sign off, but please call back anytime with questions or concerns. Job ID: [id number]
[2020-01-29] MEDS: Morphine 2 MG/ML VIAL SLOW IVP PRN ×2 (07:22→18:40)
[2020-01-29] MEDS: cefTRIAXone\\ROCEPHIN 2 GM in Sodium Chloride 0.9% 100 ML IVPB SCH (09:06)
[2020-01-29] MEDS: Pantoprazole 40 MG VIAL IVP SCH ×2 (09:12→21:25)
[2020-01-29] MEDS ORDERED: cycloSPORINE 0.05% Ophthalmic Droperette EA EYE PRN (14:54)
--- NOTE | 2020-01-29 15:00 | PDOC.HOSPP ---
- Subjective Encounter Date: 01/29/20 Encounter Time: 14:45 Subjective: f/u for acute blood loss anemia/GOLDIE/hyperkalemia and end-stage HCC. Receiving comfort measures with IVF's/Morphine/Zofran. Nursing reports pt comfortable but minimally responsive. - Objective Vital Signs & Weight: Vital Signs (12 hours) Temp Pulse Resp BP Pulse Ox 01/29/20 08:10 92 L 01/29/20 08:03 97.6 F 70 20 96/45 L 92 L Weight Admit Weight 285 lb Weight 288 lb 3.2 oz Most Recent Monitor Data Heart Rate from ECG 70 NIBP 96/37 NIBP BP-Mean 56 Respiration from ECG 30 SpO2 98 I&O: 01/28/20 01/29/20 01/30/20 06:59 06:59 06:59 Intake Total 715 0 Output Total 50 30 Balance 665 -30 Result Diagrams: 01/28/20 04:30 01/28/20 03:37 Additional Labs: Microbiology 01/27/20 03:43 Stool Stool Occult Blood (ALVIN) - Final 01/24/20 21:19 Stool - Pending Stool Occult Blood (ALVIN) - Final Laboratory Tests 04/12/19 04/13/19 04/13/19 14:14 03:17 09:32 Hgb 7.5 L Potassium BUN Creatinine 2.75 H 2.27 H Total Bilirubin AST ALT Alkaline Phosphatase Creatine Kinase SARS-CoV-2 (PCR) 04/13/19 04/14/19 04/15/19 19:49 03:17 05:25 Hgb 7.4 L 6.8 L 7.5 L Potassium BUN Creatinine Total Bilirubin AST ALT Alkaline Phosphatase Creatine Kinase SARS-CoV-2 (PCR) 04/15/19 12/22/19 12/23/19 05:25 04:08 03:27 Hgb 8.0 L 8.6 L Potassium BUN Creatinine 1.70 H Total Bilirubin AST ALT Alkaline Phosphatase Creatine Kinase SARS-CoV-2 (PCR) 12/24/19 01/24/20 01/24/20 05:57 21:19 23:33 Hgb 8.5 L Potassium 5.6 H BUN 90 H Creatinine 4.51 H Total Bilirubin 1.0 AST 337 H ALT 126 H Alkaline Phosphatase 182 H Creatine Kinase 199 H SARS-CoV-2 (PCR) Not Detected 01/26/20 01/26/2001/26/20 03:44 12:48 06:29 Hgb Potassium 6.0 H 6.1 H 5.8 H BUN 96 H 98 H 100 H Creatinine 5.03 H 5.23 H 5.52 H Total Bilirubin AST 204 H ALT 100 H Alkaline Phosphatase 193 H Creatine Kinase SARS-CoV-2 (PCR) Hospitalist ROS - Medication Medications: Active Medications Generic Name Dose Route Start Last Admin Trade Name Freq PRN Reason Stop Dose Admin Morphine Sulfate 2 mg 01/28/20 15:38 01/29/20 07:22 Morphine 2 Mg/Ml Vial SLOW IVP 2 mg Q4H PRN Administration Anxiety/Restlessness/Sleep Ondansetron HCl 4 mg 01/26/20 17:41 01/27/20 03:34 Ondansetron Pf 4 Mg/2 Ml Vial IVP 4 mg Q6H PRN Administration Nausea/Vomiting Pantoprazole Sodium 40 mg 01/25/20 09:00 01/29/20 09:12 Pantoprazole 40 Mg Vial IVP 40 mg BID CLAY Administration - Exam General Appearance: ill appearing General - other findings: somnolent, not responsive to commands ENT: normocephalic atraumatic, no oropharyngeal lesions, dry oral mucosa Neck: supple, symmetric, no JVD, no thyromegaly, no lymphadenopathy Heart: RRR, no gallops, no rubs, diminshed peripheral pulses Heart - other findings: S1, S2 Respiratory: CTAB, no wheezes Respiratory - other findings: few rhonchi in bases Gastrointestinal: soft, non-tender, non-distended, normal bowel sounds, no palpable masses Extremities: 2+ LE edema Musculoskeletal: generalized weakness Psychiatric: somnolent, lethargic Hosp A/P (1) Acute on chronic blood loss anemia Code(s): D62 - ACUTE POSTHEMORRHAGIC ANEMIA Status: Acute (2) GOLDIE (acute kidney injury) Code(s): N17.9 - ACUTE KIDNEY FAILURE, UNSPECIFIED Status: Acute (3) Hyperkalemia Code(s): E87.5 - HYPERKALEMIA Status: Acute (4) Chronic anticoagulation Code(s): Z79.01 - [facility] (CURRENT) USE OF ANTICOAGULANTS Status: Chronic (5) Hepatocellular carcinoma Code(s): C22.0 - LIVER CELL CARCINOMA Status: Chronic (6) Transaminitis Code(s): R74.01 - ELEVATION OF LEVELS OF LIVER TRANSAMINASE LEVELS Status: Chronic - Plan plan discussed w/ family, social science analyst Continue comfort care D/C Rocephin Morphine Sulfate PRN Discussed with daughter comfort measures Spiritual care appreciated
[2020-01-29 19:34] VITALS: BP 102/45; TEMP 98.4
[2020-01-30] MEDS: Morphine 2 MG/ML VIAL SLOW IVP PRN (00:36)
--- NOTE | 2020-01-30 09:50 | DIS ---
DATE OF ADMISSION: 01/24/2020 DATE OF DISCHARGE: 01/30/2020 DATE OF EXPIRATION: 01/30/2020. FINAL DIAGNOSES: 1. Hepatocellular carcinoma, end-stage. 2. Acute gastrointestinal bleeding, on chronic anticoagulation with Xarelto. 3. Acute on chronic blood loss anemia, status post 4 units of packed red blood cells. 4. Acute kidney injury. 5. Hyperkalemia. 6. Chronic stage C diastolic heart failure. 7. Diabetes mellitus type 2. 8. Status post mitral valve replacement, on chronic anticoagulation with Xarelto. CONSULTATIONS: Dr. Bayron Tai with Gastroenterology Service. Dr. Will with Nephrology Service. Dr. Man Johnson with Medical Oncology Service. PERTINENT LABORATORY AND X-RAY FINDINGS: Sodium ranged between 129 to 134, potassium ranged between 5.6 to 6.5. The creatinine ranged between 4.51 to 5.94. AST ranged between 56 to 337. ALT ranged between 50 to 126, alkaline phosphatase ranged between 182 to 240. CBC showed a white blood cell count ranging between 11.3 to 15.4, hemoglobin ranged between 6.2 to 8.6. PT 19.3, INR 1.6, PTT 32.3. COVID-19 PCR not detected, 01/24/2020. Stool Hemoccult positive x1, 01/24/2020. CT of the brain without contrast dated 01/24/2020, showed no acute intracranial process. Portable chest x-ray dated 01/24/2020, showed atelectasis of bilateral lung bases. Questionable mass, 2 cm in diameter in the left perihilar region. EGD dated 01/27/2020, showed small hiatal hernia, otherwise negative study. HOSPITAL COURSE: The patient was initially admitted after presenting with GI bleeding in the context of chronic anticoagulation with Xarelto with initial hemoglobin of 6.2. The patient initially received 2 units of packed red blood cells and monitored with serial hemoglobins. The patient was placed on IV fluids and given proton pump inhibitors and monitored for clinical response. The patient required an additional 2 units of packed red blood cells due to persistent anemia, prompting evaluation by the Gastroenterology Service. The patient underwent EGD evaluation showing essentially negative study with stool Hemoccult positive x1. The patient was also noted with concomitant acute kidney injury, worsening despite IV fluid resuscitation in addition to IV albumin and avoidance of nephrotoxic agents. The patient was evaluated by the Nephrology Service, who recommended conservative management as the renal failure was likely due to hemodynamic factors including severe anemia and hypoperfusion. The creatinine did not improve despite intervention. The patient had associated hyperkalemia that was not amenable to medical therapy. Discussions were had with the patient and family regarding the progressive nature of the acute renal failure as well as progression of the patient's hepatocellular carcinoma despite chemotherapy treatment. Due to the patient's multiple comorbid conditions and worsening renal failure with hyperkalemia, discussions were had regarding palliative measures. The patient exhibited evidence of encephalopathy with worsening mentation and lethargy. The patient's daughter decided to pursue palliative and comfort measures, at which point, the patient was transitioned to comfort care. The patient continued to clinically decline and on 01/30/2020 at 2:05 a.m. Decedent Affairs were notified and the patient's daughter was present. Job ID: [id number]
--- NOTE | 2020-02-01 10:19 | PQF ---
CLINICAL DOCUMENTATION CLARIFICATION FORM: Dear : Jose A Joy Date / Time: 02/01/2020 Please exercise your independent, professional judgment in responding to the clarification form. Clinical indicators are provided on the bottom of this form for your review Please check appropriate box(es): [ ] Encephalopathy: Type: [ x ] Acute [ ] Subacute [ ] Chronic Etiology: [ ] Hypertensive [ x ] Metabolic [ ] Toxic [ ] Hepatic with Coma [ ] Unspecified [ ] Other (please specify) [ ] Other diagnosis [ ] Unable to determine To be completed by CDI/Coding staff for physician review: Present Clinical Indicators - Signs / Symptoms / Labs Results and Location in Medical Record [ x ] Patient exhibited evidence of encephalopathy with worsening mentation and lethargy Discharge summary [ x ] Discussions regarding the progressive nature of acute renal failure and progression of the hepatocellular carcinoma Discharge summary Present Risk Factors Results and Location in Medical Record [ x ] Hepatocellular carcinoma, acute kidney injury, hyperkalemia, diabetes mellitus Discharge summary Present Treatments Results and Location in Medical Record [ x ] CT brain 01/23 Reports [ x ] IV fluids [id number] Medications CDS/Egg Caser Signature: [email or web address] Phone #: Date/Time: 02/01/2020 This is a permanent part of the Medical Record [facility]
--- NOTE | 2020-02-01 10:41 | PQF ---
CLINICAL DOCUMENTATION CLARIFICATION FORM: Dear : Jose A Joy Date / Time: 02/01/2020 Please exercise your independent, professional judgment in responding to the clarification form. Clinical indicators are provided on the bottom of this form for your review Please check appropriate box(es): [ x ] Acute Kidney Injury (GOLDIE) [ ] Acute Tubular Necrosis (ATN) [ ] Other diagnosis [ ] Unable to determine In addition, please specify: Present on Admission (POA): [ x ] Yes [ ] No [ ] Unable to determine To be completed by CDI/Coding staff for physician review: Present Clinical Indicators - Signs / Symptoms / Labs Results and Location in Medical Record [ x ] Renal function in spite of IV hydration continues to worse. Possibility of superimposed acute tubular necrosis remains. Creatinine is now at 5.9 and discussion about dialysis was made. Daughter declined to proceed with anything invasive and would like to consider hospice Progress note 01/28 by Obie Rosales [ x ] Serial Creatinines were 4.51, 5.03, 5.23, 5.52 and 5.94 Laboratory [ x ] Serial BUNs were 90, 96, 98, 100 and 103 Laboratory [ x ] Patient was noted with concomitant acute kidney injury, worsening despite IV fluids resuscitation in addition to IV albumin and avoidance of nephrotoxic agents Discharge summary [ x ] Acute renal failure, marked increased in creatinine. Renal ultrasound and nephrology consulted. Hyperkalemia due to renal failure, given IV boluses H and P [ x ] Given worsening renal function and hypotension, IV fluids were given ED provider notes [ x ] Acute kidney injury, creatinine noted at 4.5 mg%. Her previous creatinine was 1.29. I suspect with GI bleed and severe anemia that she may have superimposed hemodynamically-mediated renal dysfunction Consult 01/24 by Obie Rosales Present Risk Factors Results and Location in Medical Record [ x ] Acute blood loss anemia, hepatocellular carcinoma, nephrotoxic medications Progress note 01/24 by Jose A Bueno [ x ] Gastrointestinal bleeding, hyperkalemia Discharge summary Present Treatments Results and Location in Medical Record [ x ] IV fluids 01/23-120 Medications [ x ] Nephrology consult 01/24 Reports [ x ] IV fluid resuscitation with IV albumin and avoidance of nephrotoxic agents CDS/Gas Engine Operator Signature: SJ1 Phone #: Date/Time: 02/01/2020 This is a permanent part of the Medical Record [facility]
--- NOTE | 2020-02-03 15:18 | EKG ---
Test Reason : Blood Pressure : / mmHG Vent. Rate : 070 BPM Atrial Rate : 070 BPM P-R Int : 000 ms QRS Dur : 164 ms QT Int : 464 ms P-R-T Axes : 065 107 -60 degrees QTc Int : 501 ms Electronic ventricular pacemaker Confirmed by ESPERANZA JEREZ ([id number]), assignment desk editor SHANTI BALL ([id number]) on 02/03/2020 3:18:18 PM Referred By: Confirmed By:ESPERANZA Cuevas
--- NOTE | 2020-02-08 22:13 | PQF ---
CLINICAL DOCUMENTATION CLARIFICATION FORM: Dear : Jose A Joy Date / Time: 02/09/2020 Please exercise your independent, professional judgment in responding to the clarification form. Clinical indicators are provided on the bottom of this form for your review Please check appropriate box(es): [ ] Chronic Respiratory Failure [ ] with Hypoxia [ ] with Hypercapnia [ x ] Other diagnosis _Chronic Diastolic CHF [ ] Unable to determine In addition, please specify: Present on Admission (POA): [ x ] Yes [ ] No [ ] Unable to determine To be completed by CDI/Coding staff for physician review: Present Clinical Indicators - Signs / Symptoms / Labs Results and Location in Medical Record [ x ] PMH GI Bleeds; hepatocellular carcinoma, CKD, Mitral valve replacement; CHF on home O2, obesity; chronic diastolic CHF 11.25 H&P (Zeeshan) [ x ] 01.26 11.29 2 2.5LNC. . 12.1 1.5 LNC RT: Oxygen Present Risk Factors Results and Location in Medical Record [ x ] History of home O2 use 11.25 H&P (Zeeshan) [ x ] Chronic diastolic heart failure 11.25 H&P (Zeeshan) Present Treatments Results and Location in Medical Record [ x ] Nasal cannula oxygen 01/26-01/28 RT: Oxygen CDS/Soda Worker Signature: SJ1 Phone #: Date/Time: 02/09/2020 Acute Respiratory Failure: ABG pH < 7.35 or > 7.45; Decreased oxygen saturation (<90% room air or < 95% on oxygen); PCO2 > 50 mm Hg; PO2 < 60 mm Hg; Labored or rapid respirations ARDS: Dx Criteria [[place] ARDS]: Respiratory symptoms within one week of a known clinical insult (e.g. shock, infection, surgery, trauma) Bilateral opacities in CXR/Chest CT not due to CHF or fluid This is a permanent part of the Medical Record [facility]
== END 2020-01-30 02:05 | disposition expired | DRG 377 ==
LOC: ERS 20:33 → IMCU/EMU 23:58 → ONC 01-28 19:08
PROVIDERS: ADMIT Internal Medicine; ATTEND Internal Medicine
PROC: 30233N1 Transfusion of Nonautologous Red Blood Cells into Peripheral Vein, Percutaneous Approach (ICD-10-PCS; 2020-01-25)
PROC: 0DJ08ZZ Inspection of Upper Intestinal Tract, Via Natural or Artificial Opening Endoscopic (ICD-10-PCS; principal; 2020-01-27)
DX: K92.2 Gastrointestinal hemorrhage, unspecified (principal); G93.41 Metabolic encephalopathy; C22.0 Liver cell carcinoma; N17.9 Acute kidney failure, unspecified; Z66 Do not resuscitate; Z51.5 Encounter for palliative care; I50.32 Chronic diastolic (congestive) heart failure; I13.0 Hypertensive heart and chronic kidney disease with heart failure and stage 1 through stage 4 chronic kidney disease, or unspecified chronic kidney disease; Z68.43 Body mass index [BMI] 50.0-59.9, adult; D62 Acute posthemorrhagic anemia; I48.92 Unspecified atrial flutter; D68.32 Hemorrhagic disorder due to extrinsic circulating anticoagulants; I48.91 Unspecified atrial fibrillation; I95.9 Hypotension, unspecified; E88.09 Other disorders of plasma-protein metabolism, not elsewhere classified; N18.9 Chronic kidney disease, unspecified; E87.5 Hyperkalemia; T45.515A Adverse effect of anticoagulants, initial encounter; E66.01 Morbid (severe) obesity due to excess calories; E11.22 Type 2 diabetes mellitus with diabetic chronic kidney disease; E78.5 Hyperlipidemia, unspecified; K44.9 Diaphragmatic hernia without obstruction or gangrene; Z95.2 Presence of prosthetic heart valve; Z95.0 Presence of cardiac pacemaker; Z79.01 Long term (current) use of anticoagulants; Z90.710 Acquired absence of both cervix and uterus; Z88.0 Allergy status to penicillin; Z79.82 Long term (current) use of aspirin; Z95.1 Presence of aortocoronary bypass graft; Z92.21 Personal history of antineoplastic chemotherapy; Z87.891 Personal history of nicotine dependence
CPT/HCPCS: 36415; 36416; 36430; 70450; 71045; 80053; 82274; 82550; 85018; 85025; 85610; 85730; 86850; 86870; 86880; 86900; 86901; 86905; 86922; 87635; 90471; 90662; 90732; 93005; 96374; C9113; G0008; G0009; J0696; J1940; J2270; J2405; J2704; J3490; P9016; P9047; U0003